=== PATIENT | female | born 1930 ===

== ENCOUNTER → 2016-09-09 | Outpatient (CLI) | payer OTHER ==
[2016-09-09 12:06] LABS: HEMATOCRIT 36.6 % (37-47); MEAN CORPUSCULAR HEMOGLOBIN 33.9 pg (25-34); MEAN CORPUSCULAR HGB CONC 33.9 g/dl (32-36); MEAN PLATELET VOLUME 10.7 fL (7.4-10.4); PLATELET COUNT 244 K/uL (130-400); RED BLOOD COUNT 3.66 M/uL (4.2-5.4); WHITE BLOOD COUNT 4.35 K/uL (4.8-10.8)
[2016-09-09 12:23] LABS: BLOOD UREA NITROGEN 21 mg/dl (7-18); BUN/CREATININE RATIO 21.3 (10-20); CALCIUM 9.1 mg/dl (8.5-10.1); CARBON DIOXIDE 33 mmol/L (21-32); CHLORIDE 102 mmol/L (98-107); GLUCOSE 94 mg/dl (70-99); POTASSIUM 4.3 mmol/L (3.5-5.1); SODIUM 141 mmol/L (136-145)
== END | disposition home or self-care (01) ==
LOC: C.LABWYN 12:26
PROVIDERS: ATTEND Internal Medicine
DX: I50.9 Heart failure, unspecified (principal); E03.9 Hypothyroidism, unspecified

== ENCOUNTER → 2016-12-16 | Outpatient (CLI) | payer OTHER | END | disposition home or self-care (01) | LOC: C.LABWYN 12:34 | PROVIDERS: ATTEND Internal Medicine | DX: E03.9 Hypothyroidism, unspecified (principal) ==

== ENCOUNTER → 2017-03-15 | Outpatient (CLI) | payer OTHER ==
[2017-03-15 12:16] LABS: HEMATOCRIT 35.5 % (37-47); MEAN CELL VOLUME 100.9 fL (80-100); MEAN CORPUSCULAR HEMOGLOBIN 33.8 pg (25-34); MEAN CORPUSCULAR HGB CONC 33.5 g/dl (32-36); MEAN PLATELET VOLUME 10.5 fL (7.4-10.4); PLATELET COUNT 217 K/uL (130-400); RED BLOOD COUNT 3.52 M/uL (4.2-5.4); WHITE BLOOD COUNT 3.89 K/uL (4.8-10.8)
[2017-03-15 12:44] LABS: BLOOD UREA NITROGEN 28 mg/dl (7-18); CALCIUM 8.9 mg/dl (8.5-10.1); CARBON DIOXIDE 32 mmol/L (21-32); CHLORIDE 104 mmol/L (98-107); GLUCOSE 85 mg/dl (70-99); POTASSIUM 4.4 mmol/L (3.5-5.1); SODIUM 143 mmol/L (136-145)
== END | disposition home or self-care (01) ==
LOC: C.LABWYN 15:02
PROVIDERS: ATTEND Nurse Practitioner Adult Health
DX: E03.9 Hypothyroidism, unspecified (principal); I10 Essential (primary) hypertension

== ENCOUNTER → 2017-05-24 | Outpatient (CLI) | payer OTHER | END | disposition home or self-care (01) | LOC: C.LABWYN 12:37 | PROVIDERS: ATTEND Internal Medicine | DX: Z51.81 Encounter for therapeutic drug level monitoring (principal); Z79.899 Other long term (current) drug therapy ==

== ENCOUNTER 2017-06-02 08:53 | Inpatient (IN) | payer OTHER ==
[~2017-06-02] VITALS: Ht 170.2 cm; Wt 56.5 kg
[2017-06-02] MEDS ORDERED: SODIUM CHLORIDE 0.9% 1000ML 500 ML IV STA (09:09)
[2017-06-02] MEDS ORDERED: CEFTRIAXONE SOD INJ 1 GM ADDVIAL IV STA (09:09)
[2017-06-02] MEDS ORDERED: DIPHTHERIA/TETANUS/PERTUSSIS 0.5 ML SYR/VIAL IM. ONE (09:15)
--- NOTE | 2017-06-02 09:23 | EMERGENCY ROOM VISIT NOTE ---
History Report prepared by Jada: Nedra Mirza Under the Supervision of: Dr. Stewart Rojas M.D. First contact with patient: 09:01 Stated Complaint: FALL/WRIST PAIN/ALTERED MENTAL STATUS History of Present Illness The patient is an 87 year old female who presents to the Emergency Room with complaints of a sudden fall that occurred last night. Nursing staff reports that the patient arrives via ALS from the [facility]. Per nursing staff, the patient fell early last night, noting that it was unwitnessed. Nursing staff reports that the patient lost consciousness and is unsure how or why she fell. Nursing staff reports that the patient is on Eliquis and has a history of atrial fibrillation. The patient states that she was on the floor for awhile before anyone found her. She denies any head trauma. The patient reports pain to her right arm. Nursing staff states that they are unsure of the patient's baseline mental status. The patient denies any shortness of breath. She is unsure when her last tetanus shot was administered. The patient 's [id number] states that the patient had a fall just before , but they are unsure why she fell that day. Source of History: patient, family (daughter in law), nursing staff Onset: last night Position: other (global) Quality: other (fall) Timing: other (sudden) Associated Symptoms: + LOC Note: Associated Symptoms: right arm pain Review of Systems See HPI for pertinent positives & negatives. A total of 10 systems reviewed and were otherwise negative. Past Medical & Surgical Medical Problems: (1) Atrial fibrillation (2) CHF (congestive heart failure) (3) HTN (hypertension) (4) Hypothyroidism (5) Paroxysmal atrial fibrillation Family History Noncontributory secondary to age Social History Marital Status: Housing Status: senior living Occupation Status: retired Current/Historical Medications Scheduled Apixaban (Eliquis), 2.5 MG PO BID Cholecalciferol (Vitamin D3), 2,000 UNITS PO DAILY Docusate Sodium (Colace), 100 MG PO BID Furosemide (Lasix), 20 MG PO BID Levothyroxine Sodium (Levothyroxine Sodium), 75 MCG PO DAILY Metoprolol Succinate (Metoprolol Succinate ER), 50 MG PO DAILY Multiple Vitamins W/ Minerals (Therems M), 1 TAB PO DAILY Allergies Coded Allergies: No Known Allergies (Unverified , 06/02/17) Physical Exam Vital Signs Date Time Temp Pulse Resp B/P (MAP) Pulse Ox O2 Delivery O2 Flow Rate FiO2 06/02/17 13:07 36.6 93 16 114/78 94 06/02/17 13:00 94 Room Air 06/02/17 12:56 93 16 114/78 94 Room Air 06/02/17 11:21 83 18 118/69 93 Room Air 06/02/17 09:53 97 Room Air 06/02/17 09:50 82 06/02/17 09:31 97 Room Air 06/02/17 09:07 36.6 103 18 108/48 97 Room Air Physical Exam GENERAL: Patient is in no acute distress. HEENT: No acute trauma, normocephalic atraumatic, Mucous membranes are dry, no nasal congestion, no scleral icterus. NECK: No stridor, no adenopathy, no meningismus, trachea is midline. LUNGS: Clear to auscultation bilaterally, no wheeze, no rhonchi, breath sounds equal. HEART: Irregular without any murmurs, normal rate. ABDOMEN: Soft, nontender, bowel sounds positive, no hernias, no peritonitis. EXTREMITIES: Skin tears about the right posterior elbow without evidence of cellulitis, no evidence for underlying elbow fracture. Large skin tear to the right medial posterior distal forearm with surrounding erythema and warmth consistent with early cellulitis, no gross deformity to this extremity to suggest fracture. NEUROLOGIC: Awake and alert, oriented to person and place, moving all extremities, no focal motor deficits. Able to recall and explain last evenings events. SKIN: No rash, no jaundice, no diaphoresis. Medical Decision & Procedures ER Provider Diagnostic Interpretation: Radiology results as stated below per my review and radiologist interpretation: RIGHT WRIST 4 VIEWS CLINICAL HISTORY: Fall with right wrist injury. FINDINGS: 4 views of the right wrist are obtained. No prior studies are available for comparison at the time of dictation. The skeletal structures are osteopenic. No fracture is seen. Soft tissue edema is present around the wrist. There is mild degenerative narrowing at the radiocarpal articulation. Minimal arthritic change is seen along the radial carpal row and at the first carpometacarpal joint. Atherosclerotic calcification is noted in the regional arteries. IMPRESSION: 1. Soft tissue swelling with no clear radiographic evidence of acute fracture. If there is clinical concern for occult fracture consider short-term radiographic follow-up. 2. Osteopenia and mild arthritic change as above. Electronically signed by: Stewart Reyes M.D. 06/02/2017 9:56 AM Dictated Date/Time: 06/02/2017 9:[address] SCAN OF THE BRAIN WITHOUT IV CONTRAST CLINICAL HISTORY: Weakness. Change in mental status. Fall. COMPARISON STUDY: No priors. TECHNIQUE: Unenhanced axial CT scan of the brain is performed from the vertex to the skull base. A dose lowering technique was utilized adhering to the principles of ALARA. FINDINGS: Brain parenchyma: There are age-related involutional changes noting [id number] patchy subcortical and periventricular microangiopathic change. There is no hemorrhage, mass effect, or evidence of acute territorial ischemia by CT criteria. Small chronic lacunar infarcts are present within the basal ganglia and both thalami. Pedroza-white matter is preserved. No extra-axial fluid collection is seen. Ventricles, sulci, cisterns: Prominent secondary to involutional change. Intracranial vasculature: There is atherosclerotic calcification of the cavernous carotid and vertebral arteries. Calvarium: The skeletal structures are osteopenic. There is no depressed calvarial fracture. Sinuses and mastoids: There is moderate mucosal thickening within air-fluid level seen in the right maxillary antrum. Mucosal thickening is also seen within several right ethmoid sinuses and the right frontal sinus. The mastoid air cells are well pneumatized. Orbits: The bony orbits are grossly intact. IMPRESSION: 1. Senescent changes as above with no hemorrhage, mass effect, or evidence of acute territorial ischemia by CT criteria. 2. Right-sided paranasal sinus disease as above. Electronically signed by: Stewart Reyes M.D. 06/02/2017 10:50 AM Dictated Date/Time: 06/02/2017 10:47 AM RIGHT FOREARM 2 VIEWS CLINICAL HISTORY: Fall with right arm pain. FINDINGS: AP and lateral views of the right forearm are obtained. No prior studies are available for comparison at the time of dictation. The skeletal structures are osteopenic. There is no radiographic evidence of right forearm fracture. The elbow and wrist joints are grossly maintained noting arthritic change in the wrist. Soft tissue edema is present around the wrist. Atherosclerotic calcification is observed in the regional arteries. IMPRESSION: Osteopenia with no radiographic evidence of right forearm fracture. Electronically signed by: Stewart Reyes M.D. 06/02/2017 9:51 AM Dictated Date/Time: 06/02/2017 9:50 AM RIGHT ELBOW 3 VIEWS CLINICAL HISTORY: Fall with right arm injury. FINDINGS: 3 views of the right elbow are obtained. No prior studies are available for comparison at the time of dictation. The skeletal structures are osteopenic. No fracture is seen. The joint spaces appear maintained. There is no evidence of joint effusion. The overlying soft tissues are within normal limits. Atherosclerotic calcification is noted in the regional arteries. IMPRESSION: Osteopenia with no radiographic evidence of right elbow fracture. Electronically signed by: Stewart Reyes M.D. 06/02/2017 9:50 AM Dictated Date/Time: 06/02/2017 9:49 AM SINGLE VIEW CHEST CLINICAL HISTORY: Fall. Weakness. FINDINGS: An AP, portable, upright chest radiograph is obtained. No prior studies are available for comparison at the time of dictation. The examination is degraded by portable technique and patient rotation. The heart is enlarged and there is atherosclerotic calcification of the thoracic aorta. The pulmonary vasculature is noncongested. No airspace consolidation or large pleural effusion is identified. A large hiatal hernia is identified. There is an approximately 2 cm nodular density suggested in the left upper lung. This may represent bony overgrowth at the first rib ending. Apical scarring and calcification is noted. No pneumothorax is seen. The skeletal structures are osteopenic. There is evidence of a compression deformity with previous vertebroplasty in the thoracic spine. IMPRESSION: 1. Cardiomegaly with no acute cardiopulmonary abnormality. 2. Hiatal hernia. 3. A 2 cm nodular density is questioned in the left upper lung. This may represent bony overgrowth at the first rib ending. Follow-up with a dedicated PA and lateral examination is recommended for reassessment. Electronically signed by: Stewart Reyes M.D. 06/02/2017 9:53 AM Dictated Date/Time: 06/02/2017 9:51 AM CERVICAL SPINE W/O CLINICAL HISTORY: 87 years-old Female presenting with fall. TECHNIQUE: Multidetector CT of the cervical spine was performed without the use of intravenous contrast. IV contrast: None. A dose lowering technique was used consistent with the principles of ALARA (as low as reasonably achievable). COMPARISON: None. CT DOSE (mGy.cm): The estimated cumulative dose is 1015.79 mGy.cm. FINDINGS: Cushion Cover Inspector topogram: Unremarkable. Osteopenia. Exaggerated cervical lordosis. Multilevel degenerative changes, including extensive facet and uncovertebral arthropathy.. Osseous neural foraminal narrowing right greater than left at C3-4 and on the right at C4-5. No significant osseous spinal canal narrowing. Osseous fusion noted across the facet joints at C2-3. No compression deformity. No evidence of acute fracture or subluxation. Atherosclerosis noted. Limited intracranial evaluation within normal limits. Allowing for noncontrast technique, soft tissues of the neck are unremarkable. Lung apices clear. IMPRESSION: 1. No acute osseous injury of the cervical spine. 2. Multilevel degenerative changes. Electronically signed by: Mohinder Keane M.D. 06/02/2017 10:55 AM Dictated Date/Time: 06/02/2017 10:49 AM Laboratory Results 06/02/17 10:00 Red Blood Count 3.76, Mean Corpuscular Volume 99.5, Mean Corpuscular Hemoglobin 34.8, Mean Corpuscular Hemoglobin Concent 35.0, Mean Platelet Volume 9.4, Neutrophils (%) (Auto) 75.9, Lymphocytes (%) (Auto) 11.2, Monocytes (%) (Auto) 10.8, Eosinophils (%) (Auto) 1.5, Basophils (%) (Auto) 0.3, Neutrophils # (Auto ) 5.70, Lymphocytes # (Auto) 0.84, Monocytes # (Auto) 0.81, Eosinophils # (Auto ) 0.11, Basophils # (Auto) 0.02 06/02/17 10:00 Test 06/02/17 10:00 06/02/17 10:20 White Blood Count 7.50 K/uL (4.8-10.8) Red Blood Count 3.76 M/uL (4.2-5.4) Hemoglobin 13.1 g/dL (12.0-16.0) Hematocrit 37.4 % (37-47) Mean Corpuscular Volume 99.5 fL (80-100) Mean Corpuscular Hemoglobin 34.8 pg (25-34) Mean Corpuscular Hemoglobin Concent 35.0 g/dl (32-36) Platelet Count 306 K/uL (130-400) Mean Platelet Volume 9.4 fL (7.4-10.4) Neutrophils (%) (Auto) 75.9 % Lymphocytes (%) (Auto) 11.2 % Monocytes (%) (Auto) 10.8 % Eosinophils (%) (Auto) 1.5 % Basophils (%) (Auto) 0.3 % Neutrophils # (Auto) 5.70 K/uL (1.4-6.5) Lymphocytes # (Auto) 0.84 K/uL (1.2-3.4) Monocytes # (Auto) 0.81 K/uL (0.11-0.59) Eosinophils # (Auto) 0.11 K/uL (0-0.5) Basophils # (Auto) 0.02 K/uL (0-0.2) RDW Standard Deviation 56.3 fL (36.4-46.3) RDW Coefficient of Variation 15.4 % (11.5-14.5) Immature Granulocyte % (Auto) 0.3 % Immature Granulocyte # (Auto) 0.02 K/uL (0.00-0.02) Prothrombin Time 11.2 SECONDS (9.0-12.0) Prothromb Time International Ratio 1.1 (0.9-1.1) Activated Partial Thromboplast Time 31.4 SECONDS (21.0-31.0) Partial Thromboplastin Ratio 1.2 Anion Gap 3.0 mmol/L (3-11) Est Creatinine Clear Calc Drug Dose 30.6 ml/min Estimated GFR () 53.7 Estimated GFR (Non- 46.3 BUN/Creatinine Ratio 17.5 (10-20) Calcium Level 8.6 mg/dl (8.5-10.1) Magnesium Level 2.4 mg/dl (1.8-2.4) Total Bilirubin 0.7 mg/dl (0.2-1) Aspartate Amino Transf (AST/SGOT) 25 U/L (15-37) Alanine Aminotransferase (ALT/SGPT) 30 U/L (12-78) Alkaline Phosphatase 120 U/L (45-117) Total Creatine Kinase 126 U/L (26-192) Troponin I 0.018 ng/ml (0-0.045) Total Protein 7.0 gm/dl (6.4-8.2) Albumin 3.2 gm/dl (3.4-5.0) Globulin 3.8 gm/dl (2.5-4.0) Albumin/Globulin Ratio 0.8 (0.9-2) Thyroid Stimulating Hormone (TSH) 1.230 uIu/ml (0.300-4.500) Urine Color YELLOW Urine Appearance CLEAR (CLEAR) Urine pH 7.0 (4.5-7.5) Urine Specific [place] 1.018 (1.000-1.030) Urine Protein NEG (NEG) Urine Glucose (UA) NEG (NEG) Urine Ketones NEG (NEG) Urine Occult Blood TRACE (NEG) Urine Nitrite POS (NEG) Urine Bilirubin NEG (NEG) Urine Urobilinogen NEG (NEG) Urine Leukocyte Esterase MODERATE (NEG) Urine WBC (Auto) >30 /hpf (0-5) Urine RBC (Auto) 0-4 /hpf (0-4) Urine Hyaline Casts (Auto) 10-30 /lpf (0-5) Urine Epithelial Cells (Auto) 0-5 /lpf (0-5) Urine Bacteria (Auto) 3+ (NEG) Laboratory results reviewed by me. Medications Administered Medications (Trade) Dose Ordered Sig/Cherelle Route Start Time Stop Time Status Last Admin Dose Admin Sodium Chloride 500 ml @ 999 mls/hr Q31M STAT IV 06/02/17 09:09 06/02/17 09:39 DC 06/02/17 09:09 999 MLS/HR Diphtheria/ Pertussis/Tetanus Vacc (Adacel Inj) 0.5 ml ONCE ONCE IM. 06/02/17 09:15 06/02/17 09:16 DC 06/02/17 11:16 0.5 ML Ceftriaxone Sodium (Rocephin Inj) 1 gm NOW STAT IV 06/02/17 09:09 06/02/17 09:14 DC 06/02/17 11:14 1 GM Vancomycin HCl 1250 mg/Sodium Chloride 275 ml @ 125 mls/hr NOW STAT IV 06/02/17 13:15 06/02/17 15:26 06/02/17 13:41 125 MLS/HR ECG Indication: weakness Rate (beats per minute): 90 Rhythm: atrial fibrillation Findings: no acute ischemic change, no ectopy ED Course 0904: The patient was evaluated in room B6. A complete history and physical exam was performed. 0909: Ordered Rocephin Inj 1 gm IV, Sodium Chloride 500 ml @ 999 mls/hr IV. 0915: Ordered Adacel Inj 0.5 ml IM. 1103: I reevaluated the patient and she is resting comfortably. I discussed the test results with the patient and her family and I discussed the treatment plan with them. They verbalized complete understanding and agreement. The patient will be evaluated for further treatment. 1127: I discussed the patients case with Yamileth Zuniga PA-C. She is going to evaluate the patient for further treatment. Medical Decision The patient is an 87 year old female who presents to the ED with complaints of a fall. Differential diagnoses considered include Cellulitis, right elbow forearm or wrist fracture, intracranial bleeding or c-spine fracture, infection , dehydration, anemia, electrolyte imbalance, dysrhythmia, MS. There is no leukocytosis or concerning anemia. No significant electrolyte abnormality, kidney failure or hepatitis. Chest x-ray does not show pneumonia or CHF. Brain CT shows no acute bleed or mass effect. C-spine CT shows no acute fracture. Right forearm, right wrist and right elbow films were performed , no fracture seen. Urinalysis does suggest infection. The patient appears to be in a euthyroid state. Urine culture and blood cultures are pending. EKG shows A. fib, no acute ischemia. Cardiac enzyme testing 1 does not suggest acute cardiac injury. The patient was given an Adacel booster IM. She received IV saline and IV ceftriaxone. The patient presents with falls and some confusion. She appears to be developing a right arm cellulitis from one of her skin tears. She has a UTI by workup. She seems dehydrated clinically. I suspect the urinary infection and dehydration caused the fall. The change in mental status also may be from the UTI. With all her findings and the possible developing right arm cellulitis, I did think a hospital stay was warranted. I spoke to the patient and case management. I talked with the patient's family. The on-call hospitalist was consulted. The patient's skin tears were cleansed and dressed, suturing was not felt to be indicated--the wounds were fairly old for suturing. Medication Reconcilliation Current Medication List: was personally reviewed by me Blood Pressure Screening Patient's blood pressure: Normal blood pressure Blood pressure disposition: Did not require urgent referral Consults Time Called: 1110 Consulting Physician: Yamileth Zuniga PA-C Returned Call: 1127 I discussed the patients case with Yamileth Zuniga PA-C. She is going to evaluate the patient for further treatment. Impression Primary Impression: Change in mental status Additional Impressions: Weakness Skin tear of right upper extremity Right arm cellulitis UTI (urinary tract infection) Scribe Attestation The scribe's documentation has been prepared under my direction and personally reviewed by me in its entirety. I confirm that the note above accurately reflects all work, treatment, procedures, and medical decision making performed by me. Departure Information Dispostion Being Evaluated By Hospitalist Referrals ÁLVARO CASTILLO (PCP) Problem Qualifiers
--- NOTE | 2017-06-02 09:51 | DIAGNOSTIC IMAGING REPORT ---
RIGHT ELBOW 3 VIEWS CLINICAL HISTORY: Fall with right arm injury. FINDINGS: 3 views of the right elbow are obtained. No prior studies are available for comparison at the time of dictation. The skeletal structures are osteopenic. No fracture is seen. The joint spaces appear maintained. There is no evidence of joint effusion. The overlying soft tissues are within normal limits. Atherosclerotic calcification is noted in the regional arteries. IMPRESSION: Osteopenia with no radiographic evidence of right elbow fracture. Electronically signed by: Stewart Reyes M.D. 06/02/2017 9:50 AM Dictated Date/Time: 06/02/2017 9:49 AM
--- NOTE | 2017-06-02 09:52 | DIAGNOSTIC IMAGING REPORT ---
RIGHT FOREARM 2 VIEWS CLINICAL HISTORY: Fall with right arm pain. FINDINGS: AP and lateral views of the right forearm are obtained. No prior studies are available for comparison at the time of dictation. The skeletal structures are osteopenic. There is no radiographic evidence of right forearm fracture. The elbow and wrist joints are grossly maintained noting arthritic change in the wrist. Soft tissue edema is present around the wrist. Atherosclerotic calcification is observed in the regional arteries. IMPRESSION: Osteopenia with no radiographic evidence of right forearm fracture. Electronically signed by: Stewart Reyes M.D. 06/02/2017 9:51 AM Dictated Date/Time: 06/02/2017 9:50 AM
--- NOTE | 2017-06-02 09:54 | DIAGNOSTIC IMAGING REPORT ---
SINGLE VIEW CHEST CLINICAL HISTORY: Fall. Weakness. FINDINGS: An AP, portable, upright chest radiograph is obtained. No prior studies are available for comparison at the time of dictation. The examination is degraded by portable technique and patient rotation. The heart is enlarged and there is atherosclerotic calcification of the thoracic aorta. The pulmonary vasculature is noncongested. No airspace consolidation or large pleural effusion is identified. A large hiatal hernia is identified. There is an approximately 2 cm nodular density suggested in the left upper lung. This may represent bony overgrowth at the first rib ending. Apical scarring and calcification is noted. No pneumothorax is seen. The skeletal structures are osteopenic. There is evidence of a compression deformity with previous vertebroplasty in the thoracic spine. IMPRESSION: 1. Cardiomegaly with no acute cardiopulmonary abnormality. 2. Hiatal hernia. 3. A 2 cm nodular density is questioned in the left upper lung. This may represent bony overgrowth at the first rib ending. Follow-up with a dedicated PA and lateral examination is recommended for reassessment. Electronically signed by: Stewart Reyes M.D. 06/02/2017 9:53 AM Dictated Date/Time: 06/02/2017 9:51 AM
--- NOTE | 2017-06-02 09:57 | DIAGNOSTIC IMAGING REPORT ---
RIGHT WRIST 4 VIEWS CLINICAL HISTORY: Fall with right wrist injury. FINDINGS: 4 views of the right wrist are obtained. No prior studies are available for comparison at the time of dictation. The skeletal structures are osteopenic. No fracture is seen. Soft tissue edema is present around the wrist. There is mild degenerative narrowing at the radiocarpal articulation. Minimal arthritic change is seen along the radial carpal row and at the first carpometacarpal joint. Atherosclerotic calcification is noted in the regional arteries. IMPRESSION: 1. Soft tissue swelling with no clear radiographic evidence of acute fracture. If there is clinical concern for occult fracture consider short-term radiographic follow-up. 2. Osteopenia and mild arthritic change as above. Electronically signed by: Stewart Reyes M.D. 06/02/2017 9:56 AM Dictated Date/Time: 06/02/2017 9:54 AM
[2017-06-02 10:30] LABS: BASO % 0.3 %; BASO ABS # 0.02 K/uL (0-0.2); COMPLETE YES; EOS % 1.5 %; HEMATOCRIT 37.4 % (37-47); IG% 0.3 %; LYMPH % 11.2 %; LYMPH ABS # 0.84 K/uL (1.2-3.4); MEAN CELL VOLUME 99.5 fL (80-100); MEAN CORPUSCULAR HEMOGLOBIN 34.8 pg (25-34); MEAN PLATELET VOLUME 9.4 fL (7.4-10.4); MONO % 10.8 %; NEUT % 75.9 %; PLATELET COUNT 306 K/uL (130-400); RED BLOOD COUNT 3.76 M/uL (4.2-5.4)
[2017-06-02] MEDS ORDERED: FURO-85 PO (10:34)
[2017-06-02] MEDS ORDERED: TPRSR/50 PO (10:34)
[2017-06-02] MEDS ORDERED: ELQ25 PO (10:34)
[2017-06-02] MEDS ORDERED: DOCU-94 PO (10:34)
[2017-06-02] MEDS ORDERED: CHOL2000 PO (10:34)
[2017-06-02] MEDS ORDERED: LEVO75TA5 PO (10:34)
[2017-06-02] MEDS ORDERED: MULTTAB63 PO (10:34)
[2017-06-02 10:39] LABS: INR 1.1 (0.9-1.1); PARTIAL THROMBOPLASTIN RATIO 1.2; PROTHROMBIN TIME (PATIENT) 11.2 SECONDS (9.0-12.0)
[2017-06-02 10:48] LABS: BUN/CREATININE RATIO 17.5 (10-20); CALCIUM 8.6 mg/dl (8.5-10.1); CREATININE 1.07 mg/dl (0.60-1.20); MAGNESIUM 2.4 mg/dl (1.8-2.4); POTASSIUM 3.7 mmol/L (3.5-5.1)
[2017-06-02 10:49] LABS: MANUAL MICROSCOPIC REQUIRED? NO; REVIEW REQ? NO; URINE APPEARANCE CLEAR (CLEAR); URINE BILIRUBIN NEG (NEG); URINE COLOR YELLOW; URINE EPITHELIAL CELL AUTO 0-5 /lpf (0-5); URINE NITRITE POS (NEG); URINE SPECIFIC GRAVITY 1.018 (1.000-1.030); UROBILINOGEN NEG (NEG); ZZURINE CULT IF INDIC CATH YES
--- NOTE | 2017-06-02 10:51 | DIAGNOSTIC IMAGING REPORT ---
CT SCAN OF THE BRAIN WITHOUT IV CONTRAST CLINICAL HISTORY: Weakness. Change in mental status. Fall. COMPARISON STUDY: No priors. TECHNIQUE: Unenhanced axial CT scan of the brain is performed from the vertex to the skull base. A dose lowering technique was utilized adhering to the principles of ALARA. FINDINGS: Brain parenchyma: There are age-related involutional changes noting [id number]-[id number] patchy subcortical and periventricular microangiopathic change. There is no hemorrhage, mass effect, or evidence of acute territorial ischemia by CT criteria. Small chronic lacunar infarcts are present within the basal ganglia and both thalami. Pedroza-white matter is preserved. No extra-axial fluid collection is seen. Ventricles, sulci, cisterns: Prominent secondary to involutional change. Intracranial vasculature: There is atherosclerotic calcification of the cavernous carotid and vertebral arteries. Calvarium: The skeletal structures are osteopenic. There is no depressed calvarial fracture. Sinuses and mastoids: There is moderate mucosal thickening within air-fluid level seen in the right maxillary antrum. Mucosal thickening is also seen within several right ethmoid sinuses and the right frontal sinus. The mastoid air cells are well pneumatized. Orbits: The bony orbits are grossly intact. IMPRESSION: 1. Senescent changes as above with no hemorrhage, mass effect, or evidence of acute territorial ischemia by CT criteria. 2. Right-sided paranasal sinus disease as above. Electronically signed by: Stewart Reyes M.D. 06/02/2017 10:50 AM Dictated Date/Time: 06/02/2017 10:47 AM
--- NOTE | 2017-06-02 10:57 | DIAGNOSTIC IMAGING REPORT ---
CERVICAL SPINE W/O CLINICAL HISTORY: 87 years-old Female presenting with fall. TECHNIQUE: Multidetector CT of the cervical spine was performed without the use of intravenous contrast. IV contrast: None. A dose lowering technique was used consistent with the principles of ALARA (as low as reasonably achievable). COMPARISON: None. CT DOSE (mGy.cm): The estimated cumulative dose is 1015.79 mGy.cm. FINDINGS: Tribal Judge topogram: Unremarkable. Osteopenia. Exaggerated cervical lordosis. Multilevel degenerative changes, including extensive facet and uncovertebral arthropathy.. Osseous neural foraminal narrowing right greater than left at C3-4 and on the right at C4-5. No significant osseous spinal canal narrowing. Osseous fusion noted across the facet joints at C2-3. No compression deformity. No evidence of acute fracture or subluxation. Atherosclerosis noted. Limited intracranial evaluation within normal limits. Allowing for noncontrast technique, soft tissues of the neck are unremarkable. Lung apices clear. IMPRESSION: 1. No acute osseous injury of the cervical spine. 2. Multilevel degenerative changes. Electronically signed by: Mohinder Keane M.D. 06/02/2017 10:55 AM Dictated Date/Time: 06/02/2017 10:49 AM
[2017-06-02 10:59] LABS: ALB/GLOB RATIO 0.8 (0.9-2); THYROID STIMULATING HORMONE 1.23 uIu/ml (0.300-4.500)
[2017-06-02] MEDS ORDERED: ACETAMINOPHEN 325 MG TAB PO PRN (12:15)
[2017-06-02] MEDS ORDERED: VANCOMYCIN CONSULT ACTIVE PRN (12:51)
[2017-06-02 13:00] VITALS: O2SAT 94; Ht 170.2 cm; Wt 56.5 kg
[2017-06-02] MEDS ORDERED: SODIUM CHLORIDE 0.9% 1000ML 1,000 ML IV SCH (13:00)
--- NOTE | 2017-06-02 13:07 | History and Physical ---
History & Physical Date & Time of Service: Jun 02, 2017 at 12:54 Chief Complaint: Fall/Wrist Pain/Altered Mental Status Primary Care Physician: Catie Acosta History of Present Illness Source: patient This is an 87yo F with a PMH of paroxysmal A Fib, HTN, CHF, hypothyroidism and osteoporosis who presents with generalized weakness and confusion x 2 days. Patient lives in assisted living at [facility] in [place].Endorses feeling more tired that usual this week but otherwise in normal state of health until yesterday morning, when patient fell. She was sitting in a chair for a while and then stood up to get something. The next thing she remembers is lying on the floor next to her walker. Was unable to stand up but crawled over to her door and got the attention of a [facility] employee. Denies any lightheadedness, chest pain or SOB proceeding the fall. Does not know how she landed but noticed R arm pain with some abrasions on her forearm. Denies hitting head. Unsure if LOC. Per [id number], patient spent the rest of yesterday resting in her room. Had her food delivered to her and she did not eat. This morning, was found to be slightly confused (baseline mentation is A&Ox3) with generalized weakness, so was brought to the ER for further evaluation. Currently, patient endorses fatigue and decreased appetite. Denies confusion, lightheadedness, near-syncope, fever, chills, CP, SOB, abd pain, nausea, vomiting or focal neurological deficits. Denies urinary symptoms and says she has been having regular bowel movements. Has a history of A Fib and is on eliquis. Per family, this is patient's second unwitnessed fall in the past 2 months. Ambulates with a walker. Also noted to have a bruise on R cheek develop today. [id number] states it was not present yesterday and believes patient obtained bruise during transportation to hospital. Past Medical/Surgical History Medical Problems: (1) Atrial fibrillation Status: Chronic (2) CHF (congestive heart failure) Status: Chronic (3) HTN (hypertension) Status: Chronic (4) Hypothyroidism Status: Chronic (5) Paroxysmal atrial fibrillation Status: Chronic Family History Family history is non-contributory based on patient's age. Social History Smoking Status: Never Smoker Alcohol Use: none Marital Status: Housing status: assisted living Occupational Status: retired Allergies Coded Allergies: No Known Allergies (Unverified , 06/02/17) Home Medications Scheduled Apixaban (Eliquis), 2.5 MG PO BID Cholecalciferol (Vitamin D3), 2,000 UNITS PO DAILY Docusate Sodium (Colace), 100 MG PO BID Furosemide (Lasix), 20 MG PO BID Levothyroxine Sodium (Levothyroxine Sodium), 75 MCG PO DAILY Metoprolol Succinate (Metoprolol Succinate ER), 50 MG PO DAILY Multiple Vitamins W/ Minerals (Therems M), 1 TAB PO DAILY Review of Systems Ten systems reviewed and negative except as noted in the HPI. Physical Exam Vital Signs Date Time Temp Pulse Resp B/P (MAP) Pulse Ox O2 Delivery O2 Flow Rate FiO2 06/02/17 11:21 83 18 118/69 93 Room Air 06/02/17 09:53 97 Room Air 06/02/17 09:50 82 06/02/17 09:31 97 Room Air 06/02/17 09:07 36.6 103 18 108/48 97 Room Air General Appearance: no apparent distress, + cachetic Head: normocephalic, atraumatic Eyes: normal inspection, PERRL, sclerae normal ENT: normal ENT inspection, hearing grossly normal, pharynx normal (dry mucous membranes ) Neck: supple, thyroid normal, trachea midline Respiratory/Chest: chest non-tender, normal breath sounds, no respiratory distress, no accessory muscle use, + rhonchi (in upper lung dagile bilaterally ) Cardiovascular: no murmur, normal peripheral pulses, + irregularly irregular Abdomen/GI: non tender, soft, no organomegaly Back: normal inspection Extremities/Musculoskelatal: normal inspection, no calf tenderness, no pedal edema Neurologic/Psych: no motor/sensory deficits, alert (oriented to person and place, not to time or situation), normal mood/affect, oriented x 3 Skin: normal color, + pertinent finding (Presence of 2 skin tears on R forearm with surrounding erythema. Healing wound on L ankle. Purple ecchymosis on R cheek. Non-tender.) Lymphatic: no adenopathy Diagnostics Laboratory Results Results Past 24 Hours Test 06/02/17 10:00 06/02/17 10:20 Range/Units White Blood Count 7.50 4.8-10.8 K/uL Red Blood Count 3.76 4.2-5.4 M/uL Hemoglobin 13.1 12.0-16.0 g/dL Hematocrit 37.4 37-47 % Mean Corpuscular Volume 99.5 80-100 fL Mean Corpuscular Hemoglobin 34.8 25-34 pg Mean Corpuscular Hemoglobin Concent 35.0 32-36 g/dl Platelet Count 306 130-400 K/uL Mean Platelet Volume 9.4 7.4-10.4 fL Neutrophils (%) (Auto) 75.9 % Lymphocytes (%) (Auto) 11.2 % Monocytes (%) (Auto) 10.8 % Eosinophils (%) (Auto) 1.5 % Basophils (%) (Auto) 0.3 % Neutrophils # (Auto) 5.70 1.4-6.5 K/uL Lymphocytes # (Auto) 0.84 1.2-3.4 K/uL Monocytes # (Auto) 0.81 0.11-0.59 K/uL Eosinophils # (Auto) 0.11 0-0.5 K/uL Basophils # (Auto) 0.02 0-0.2 K/uL RDW Standard Deviation 56.3 36.4-46.3 fL RDW Coefficient of Variation 15.4 11.5-14.5 % Immature Granulocyte % (Auto) 0.3 % Immature Granulocyte # (Auto) 0.02 0.00-0.02 K/uL Prothrombin Time 11.2 9.0-12.0 SECONDS Prothromb Time International Ratio 1.1 0.9-1.1 Activated Partial Thromboplast Time 31.4 21.0-31.0 SECONDS Partial Thromboplastin Ratio 1.2 Sodium Level 136 136-145 mmol/L Potassium Level 3.7 3.5-5.1 mmol/L Chloride Level 99 98-107 mmol/L Carbon Dioxide Level 34 21-32 mmol/L Anion Gap 3.0 3-11 mmol/L Blood Urea Nitrogen 19 7-18 mg/dl Creatinine 1.07 0.60-1.20 mg/dl Est Creatinine Clear Calc Drug Dose 30.6 ml/min Estimated GFR () 53.7 Estimated GFR (Non- 46.3 BUN/Creatinine Ratio 17.5 10-20 Random Glucose 134 70-99 mg/dl Calcium Level 8.6 8.5-10.1 mg/dl Magnesium Level 2.4 1.8-2.4 mg/dl Total Bilirubin 0.7 0.2-1 mg/dl Aspartate Amino Transf (AST/SGOT) 25 15-37 U/L Alanine Aminotransferase (ALT/SGPT) 30 12-78 U/L Alkaline Phosphatase 120 45-117 U/L Total Creatine Kinase 126 26-192 U/L Troponin I 0.018 0-0.045 ng/ml Total Protein 7.0 6.4-8.2 gm/dl Albumin 3.2 3.4-5.0 gm/dl Globulin 3.8 2.5-4.0 gm/dl Albumin/Globulin Ratio 0.8 0.9-2 Thyroid Stimulating Hormone (TSH) 1.230 0.300-4.500 uIu/ml Urine Color YELLOW Urine Appearance CLEAR CLEAR Urine pH 7.0 4.5-7.5 Urine Specific Lackey 1.018 1.000-1.030 Urine Protein NEG NEG Urine Glucose (UA) NEG NEG Urine Ketones NEG NEG Urine Occult Blood TRACE NEG Urine Nitrite POS NEG Urine Bilirubin NEG NEG Urine Urobilinogen NEG NEG Urine Leukocyte Esterase MODERATE NEG Urine WBC (Auto) >30 0-5 /hpf Urine RBC (Auto) 0-4 0-4 /hpf Urine Hyaline Casts (Auto) 10-30 0-5 /lpf Urine Epithelial Cells (Auto) 0-5 0-5 /lpf Urine Bacteria (Auto) 3+ NEG Microbiology Results 06/02/17 Blood Culture, Received Pending 06/02/17 Blood Culture, Received Pending 06/02/17 Urine Culture, Received Pending Diagnostic Radiology CT head: IMPRESSION: 1. Senescent changes as above with no hemorrhage, mass effect, or evidence of acute territorial ischemia by CT criteria. 2. Right-sided paranasal sinus disease as above. CXR: IMPRESSION: 1. Cardiomegaly with no acute cardiopulmonary abnormality. 2. Hiatal hernia. 3. A 2 cm nodular density is questioned in the left upper lung. This may represent bony overgrowth at the first rib ending. Follow-up with a dedicated PA and lateral examination is recommended for reassessment. Cervical spine CT: IMPRESSION: 1. No acute osseous injury of the cervical spine. 2. Multilevel degenerative changes. R Elbow XR: R Forearm XR: R Wrist XR: EKG Atrial fibrillation at 90 bpm. Left bundle branch block Impression Assessment and Plan This is an 87yo F with a PMH of paroxysmal A Fib, HTN, CHF, hypothyroidism and osteoporosis who presents with generalized weakness and confusion x 2 days. Unwitnessed fall, possible syncopal episode: - Likely vasovagal or orthostatic since episode occurred with positional change - Also has h/o A fib, which was shown on initial EKG, so must consider cardiovascular cause - Potentially a mechanical fall without LOC 2/2 weakness/fatigue from urinary infection - Had a mechanical fall last month as well - No leukocytosis, electrolyte abnormalities. TSH wnl - CT head without acute findings - Echo pending, repeat head CT in AM, Vit B12 pending - Orthostatic vitals, gentle IVF resuscitation - PT/OT eval & conditioning UTI, uncomplicated: - UA with nitrites, leuk esterase, urine bacteria - Urine culture pending - Rocephin - Gentle IVF Metabolic encephalopathy: - 2/2 UTI - Expect improvement with antibiotics, IVFs - CT head negative. Will repeat tomorrow R forearm cellulitis: - 2/2 skin tears obtained from fall - Wound care consult - Vanc initiated for empiric coverage R arm pain: improved - Initially complained of R arm pain on admission - Now denies pain - R wrist XR with soft tissue swelling, no fracture - R forearm and elbow XR without fracture - Tylenol PRN A fib: - Initial EKG shows A fib at a rate of ~90 bpm - Denies any lightheadedness, SOB, CP, palpitations - On metoprolol, eliquis - Hold eliquis overnight -Due to multiple falls recently, need to consider risk/benefit of restarting anticoagulation - Monitor rhythm on telemetry HTN: -Normotensive -Cont metoprolol -Lasix held Osteoporosis: -Cont home dose Vit D Hypothyroidism: -TSH wnl -Continue synthroid CHF: -Listed as a PMH on paperwork from [facility] -No record of a previous echo -Echo pending -Held lasix due to patient dry on exam DVT Ppx: SCDs. Eliquis held overnight 2/2 falls. Code status: DNR per discussion with family, living will PCP: Andrea Dispo: Discharge planning to return to [facility] once medically appropriate. Patient seen in collaboration with Dr. Mcclendon. Please see addendum. ADDENDUM: This is an 87 year old female with a PMH of paroxysmal A. Fib on Eliquis, hypothyroid, HTN presents with a fall. Patient cannot recall what happened; she is coming from [facility]. As per family, she fell and hit her R forearm and R cheek. Forearm cut open and redness surrounding this area. There is bruising at the R cheek. Denies chest pain/shortness of breath. She has some psychomotor slowing - as per family, she seems more confused than usual. +thin, +cachectic +irregularly irregular +psychomotor weakness R arm bandaged R cheek bruising Plan: Syncopal episode: PT/OT, discharge planning eval, check an echo, initial Head CT negative, recheck Head CT in AM to r/o hemorrhage, hold Eliquis - due to multiple falls, may be high risk to restart anticoagulation. Gentle hydration. Orthostatics. monitor in tele. UTI, possible metabolic encephalopathy: start Rocephin. urine culture pending. R arm cellulitis: Vancomycin. wound care Malnutrition; low BMI; boost, hr systems analyst consult Level of Care Telemetry Resuscitation Status DO NOT RESUSCITATE VTE Prophylaxis VTE Risk Assessment Done? Y/N: Yes Risk Level: Moderate Given or contraindicated: Other Anticoagulation Social Service Consult Lives in Snf
[2017-06-02] MEDS ORDERED: VANCOMYCIN INJ 1,250 MG in SODIUM CHLORIDE 0.9% 250ML 250 ML IV STA (13:15)
[2017-06-02] MEDS ORDERED: PNEUMOCOCCAL POLYSACCHARIDES 25 MCG/0.5 ML VIAL/SYR IM. ONE (13:30)
[2017-06-02] MEDS ORDERED: PNEUMOCOCCAL ADMINISTRATION CHARGE ONE (13:30)
[2017-06-02 14:03] VITALS: BP 149/65; PULSE 99; TEMP 36.5; O2SAT 96
--- NOTE | 2017-06-02 14:53 | Pharmacy Progress Note ---
Pharmacy Abx Initial Consult Date of Service Jun 02, 2017. Pharmacy Dosing Scope Date of Consult: 06/02/17 Consultation requested by: Charmaine Torres Pharmacy is consulted to initiate Vanco IV/PO dosing therapy, order appropriate labs and adjust drug dose/frequency. Subjective The patient is a 87 year old female admitted on Jun 02, 2017 at 12:12. Objective Height (Feet): 5 Height (Inches): 7.00 Weight (Kilograms): 53.300 Vital Signs (Past 12Hrs) Vital Signs Past 12 Hours Date Time Temp Pulse Resp B/P (MAP) Pulse Ox O2 Delivery O2 Flow Rate FiO2 06/02/17 14:03 36.5 99 20 149/65 (93) 96 Room Air 06/02/17 13:07 36.6 93 16 114/78 94 06/02/17 13:00 94 Room Air 06/02/17 12:56 93 16 114/78 94 Room Air 06/02/17 11:21 83 18 118/69 93 Room Air 06/02/17 09:53 97 Room Air 06/02/17 09:50 82 06/02/17 09:31 97 Room Air 06/02/17 09:07 36.6 103 18 108/48 97 Room Air Lab Results (24Hrs) Laboratory Tests (24 Hours) Test 06/02/17 10:00 White Blood Count 7.50 K/uL (4.8-10.8) Red Blood Count 3.76 M/uL (4.2-5.4) L Hemoglobin 13.1 g/dL (12.0-16.0) Hematocrit 37.4 % (37-47) Mean Corpuscular Volume 99.5 fL (80-100) Mean Corpuscular Hemoglobin 34.8 pg (25-34) H Mean Corpuscular Hemoglobin Concent 35.0 g/dl (32-36) Platelet Count 306 K/uL (130-400) Mean Platelet Volume 9.4 fL (7.4-10.4) Neutrophils (%) (Auto) 75.9 % Lymphocytes (%) (Auto) 11.2 % Monocytes (%) (Auto) 10.8 % Eosinophils (%) (Auto) 1.5 % Basophils (%) (Auto) 0.3 % Neutrophils # (Auto) 5.70 K/uL (1.4-6.5) Lymphocytes # (Auto) 0.84 K/uL (1.2-3.4) L Monocytes # (Auto) 0.81 K/uL (0.11-0.59) H Eosinophils # (Auto) 0.11 K/uL (0-0.5) Basophils # (Auto) 0.02 K/uL (0-0.2) Total Creatine Kinase 126 U/L (26-192) Micro Results Date/Time Source Procedure Growth Status 06/02/17 10:10 Blood Blood Culture Pending Received 06/02/17 10:00 Blood Blood Culture Pending Received 06/02/17 10:20 Urine,Catheterized Urine Culture Pending Received Risk Factors for Resistance none Assessment & Plan Pt is an 87yo F being admitted for syncopal episode w/ concurrent R forearm cellulitis. BC x2 and UC are both pending. Pt's renal fxn looks to be at baseline. At this juncture pt population p'kinetics: T1/2=23hrs, ke=0.0301, Vd= 0.7. Pt doesnt have a h/o MDRO. qSOFA score: 0. Sys>100mmHg, RR WNL, AMS resolved. Afebrile, nil leukocytosis. Vanco: * Vanco 1250mg (23.5mg/kg) x1 @ 1330 to achieve a peak of ~34mcg/mL * Then Vanco 750mg (14mg/kg) set to start @ 0800 on 06/03/17 * Goal trough until c/s's result: 15-20mcg/mL * Trough ordered for 06/05/17, prior to the third maintenance dose. Pharmacy will continue to follow and will adjust dose/frequency as necessary. Thank you.
[2017-06-02 16:00] VITALS: BP 125/72; PULSE 106; TEMP 36.9; O2SAT 95
[2017-06-02] MEDS: BOOST VANILLA PO SCH ×2 (16:45)
[2017-06-02 19:32] VITALS: BP 124/75; PULSE 89; TEMP 37.3; O2SAT 94
[2017-06-02] MEDS: DOCUSATE SODIUM 100 MG CAP PO SCH (21:36)
[2017-06-02 23:00] VITALS: BP 112/69; PULSE 88; TEMP 36.8; O2SAT 92
[2017-06-03 00:06] LABS: INFLUENZA A PCR Neg for Influ A (NEG); INFLUENZA B PCR Neg for Influ B (NEG)
[2017-06-03 03:10] VITALS: BP 104/68; PULSE 93; TEMP 37; O2SAT 94
[2017-06-03] MEDS: LEVOTHYROXINE 75 MCG TAB PO SCH (05:41)
[2017-06-03 06:39] LABS: MEAN CELL VOLUME 99.1 fL (80-100); MEAN CORPUSCULAR HEMOGLOBIN 33.8 pg (25-34); MEAN CORPUSCULAR HGB CONC 34.1 g/dl (32-36); MEAN PLATELET VOLUME 9.3 fL (7.4-10.4); PLATELET COUNT 252 K/uL (130-400); RED BLOOD COUNT 3.43 M/uL (4.2-5.4); WHITE BLOOD COUNT 7.17 K/uL (4.8-10.8)
[2017-06-03] MEDS ORDERED: PERFLUTREN LIPID MICROSPHERE (DEFINITY) IV ONE (07:00)
[2017-06-03 07:12] LABS: BUN/CREATININE RATIO 15.7 (10-20); CALCIUM 8.2 mg/dl (8.5-10.1); CREATININE 0.89 mg/dl (0.60-1.20); MAGNESIUM 2.2 mg/dl (1.8-2.4); POTASSIUM 3.9 mmol/L (3.5-5.1)
--- NOTE | 2017-06-03 08:01 | Clinical Documentation Query ---
BREANN Camacho : CLINICAL DOCUMENTATION QUERY Patient is an 87 year old female admitted s/p unwitnessed fall for treatment of UTI and right forearm cellulitis. H&P notes a "healing wound on left ankle". Nursing notes suggestive of a "less than dime sized black nooksack over right ankle, red around black nooksack". This is suggestive of eschar and thus an unstageable ulcer if pressure is the likely etiology. Also, this suggests discrepancy in laterality. Please clarify as clinically appropriate. In your clinical opinion is this patient being managed for: ( ) Pressure ulcer of left ankle, unstageable ( ) Pressure ulcer of right ankle, unstageable ( ) Not Agree ( x ) Other explanation of clinical findings -Stage II ( ) Unable to determine (Please Define) ( ) Need to Discuss The medical record reflects the following clinical findings, treatment, and risk factors. Clinical Indicators: As above Treatment: WOCN consultation Risk Factors: Age, malnutrition Please clarify and document your clinical opinion in the progress notes and discharge summary. Terms such as "probable", "suspected", "likely", "questionable", "possible", or "still to be ruled out" are acceptable. IF IN AGREEMENT, YOU MUST DOCUMENT ABOVE DIAGNOSTIC STATEMENT IN DAILY PROGRESS NOTES AND DISCHARGE SUMMARY. This document is not part of the patient's record. Thank You, Evert Pool RN [phone]
[2017-06-03 08:02] VITALS: BP 126/77; PULSE 83; TEMP 36.8; O2SAT 93
--- NOTE | 2017-06-03 08:56 | ECHOCARDIOGRAM REPORT ---
*NOTICE TO RECEIVING CONSTITUTION PARTY AGENCY This information is strictly Confidential and protected under [place] law. [place] law prohibits you from making any further disclosure of this information unless further disclosure is expressly permitted by the written consent of the person to whom it pertains or is authorized by law. A general authorization for the release of medical or other information is not sufficient for this purpose. Hospital accepts no responsibility if the information is made available to any other person, INCLUDING THE PATIENT. Interpretation Summary * Name: MARK JACOBSON Study Date: 06/03/2017 06:31 AM BP: 104/68 mmHg * Patient Location: C.2T\S\S244\S\1 HR: 93 * : 1930 (M/d/y) Gender: Female Height: 67 in * Age: 87 yrs Ethnicity: DC Weight: 117 lb * Ordering Physician: Charmaine Torres * Referring Physician: ÁLVARO CASTILLO * Performed By: Nedra Clarke RDCS * * Reason For Study: AFIB * BSA: 1.6 m2 * -- Conclusions -- * Normal LV chamber size with mild concentric LVH. * Low normal LV systolic function with abnormal septal wall motion consistent with RV pressure/volume overload, otherwise, no segmental left ventricular wall motion abnormalities are noted, EF 50-55%. * The right ventricular cavity size is enlarged (proximal parasternal long axis right ventricular outflow tract dimension >3.3 cm). The right ventricular systolic function is normal as assessed by tricuspid annular plane systolic excursion (TAPSE) (normal >1.5 cm). * Aortic valve sclerosis moderate, without significant aortic valvular stenosis. * Calcified mitral apparatus. The mitral valve leaflets appear thickened, but open well. There is mild mitral regurgitation. There is no mitral valve stenosis. * Mild tricuspid regurgitation. * Severe biatrial enlargement. * No previous studies available for comparison. Procedure Details * A contrast injection of Definity was performed to improve assessment of LV function. * Contrast was injected into an intravenous site in the left arm. * One vial of Definity ultrasound contrast was diluted in normal saline to a total volume of 10 ml. A total of '2' ml of solution was administered during imaging. * Lot # [id number] of Definity utilized for procedure. * Expiration date 1 AUG 08. * The attending nurse who injected the contrast agent was ROSCOE CAT. Left Ventricle * The left ventricle is normal in size. * There is mild concentric left ventricular hypertrophy. * Left ventricular systolic function is low normal. * No segmental left ventricular wall motion abnormalities are noted. * Ejection Fraction = 50-55%. * Flattened septum is consistent with RV pressure/volume overload. Right Ventricle * The right ventricular cavity size is enlarged (proximal parasternal long axis right ventricular outflow tract dimension >3.3 cm). * The right ventricular systolic function is normal as assessed by tricuspid annular plane systolic excursion (TAPSE) (normal >1.5 cm). Atria * The left atrium is severely dilated. * The right atrium is severely dilated. * No ASD detected; PFO is not assessed. Mitral Valve * Calcified mitral apparatus. * The mitral valve leaflets appear thickened, but open well. * There is no mitral valve stenosis. * There is mild mitral regurgitation. Tricuspid Valve * The tricuspid valve anatomy is normal. * There is no tricuspid stenosis. * There is mild tricuspid regurgitation. Aortic Valve * The aortic valve is trileaflet. * Aortic valve sclerosis moderate, without significant aortic valvular stenosis. * No hemodynamically significant valvular aortic stenosis. Pulmonic Valve * The pulmonary valve is not well seen, but the Doppler examination is normal without significant regurgitation or stenosis. Great Vessels * The aortic root is normal size. Pericardium/Pleural * There is no pericardial effusion. MMode 2D Measurements and Calculations Ao root diam 3.7 cm Ao root area 10.8 cm\S\2 LA dimension 5.1 cm LA/Ao 1.4 LVAd ap4 25.8 cm\S\2 LVLd ap4 6.9 cm EDV(MOD-sp4) 80.9 ml EDV(sp4-el) 82.0 ml LVAs ap4 17.2 cm\S\2 LVLs ap4 6.1 cm ESV(MOD-sp4) 39.6 ml ESV(sp4-el) 40.9 ml EF(MOD-sp4) 51.0 % EF(sp4-el) 50.1 % LVAd ap2 24.2 cm\S\2 LVLd ap2 7.1 cm EDV(MOD-sp2) 68.7 ml EDV(sp2-el) 70.4 ml LVAs ap2 15.6 cm\S\2 LVLs ap2 5.9 cm ESV(MOD-sp2) 33.9 ml ESV(sp2-el) 35.1 ml EF(MOD-sp2) 50.7 % EF(sp2-el) 50.1 % LVLd %diff 3.0 % EDV(MOD-bp) 76.6 ml LVLs %diff -4.77 % ESV(MOD-bp) 37.0 ml EF(MOD-bp) 51.7 % SV(MOD-sp4) 41.3 ml SI(MOD-sp4) 25.6 ml/m\S\2 SV(MOD-sp2) 34.9 ml SI(MOD-sp2) 21.7 ml/m\S\2 SV(MOD-bp) 39.6 ml SI(MOD-bp) 24.6 ml/m\S\2 SV(sp4-el) 41.1 ml SI(sp4-el) 25.5 ml/m\S\2 SV(sp2-el) 35.3 ml SI(sp2-el) 21.9 ml/m\S\2 Doppler Measurements and Calculations MV E max pedrito 111.3 cm/sec MV dec time 0.15 sec Ao V2 max 116.5 cm/sec Ao max PG 5.4 mmHg Ao max PG (full) 3.4 mmHg LV V1 max PG 2.1 mmHg LV V1 max 71.8 cm/sec TR max pedrito 251.0 cm/sec
--- NOTE | 2017-06-03 09:24 | DIAGNOSTIC IMAGING REPORT ---
CT OF THE HEAD WITHOUT CONTRAST CLINICAL HISTORY: Fall. COMPARISON STUDY: Head CT June 02, 2017. CT DOSE: 614.27 mGy.cm TECHNIQUE: Helical axial images of the head were obtained without IV contrast. Automated exposure control was utilized for the study. A dose lowering technique was utilized adhering to the principles of ALARA. FINDINGS: No acute intracranial hemorrhage, midline shift or mass effect is present. Ventricular system is normal for age. Basilar cisterns are patent. There are no extra-axial collections. Exam is mildly compromised by motion artifact. There are no findings to suggest acute dural sinus thrombosis or acute territorial infarct. A right maxillary sinus air-fluid level is noted. There are secretions within the right maxillary sinus. Secretions within the right frontal and ethmoid sinuses are noted. There is no calvarial fracture. IMPRESSION: 1. No acute intracranial findings. 2. Findings suggestive of acute right maxillary sinusitis. Electronically signed by: Camden Lu M.D. 06/03/2017 9:23 AM Dictated Date/Time: 06/03/2017 9:20 AM
[2017-06-03] MEDS: DOCUSATE SODIUM 100 MG CAP PO SCH ×2 (09:41→19:56)
[2017-06-03] MEDS: VANCOMYCIN INJ 750 MG in SODIUM CHLORIDE 0.9% 250ML 250 ML IV SCH (09:41)
[2017-06-03] MEDS: CHOLECALCIFEROL 1000 INTER.UNIT TAB PO SCH (09:41)
[2017-06-03] MEDS: METOPROLOL SUCC 50MG EXT REL TAB PO SCH (09:41)
[2017-06-03] MEDS: BOOST VANILLA PO SCH ×6 (09:41→17:08)
[2017-06-03 11:47] VITALS: BP 124/76; PULSE 106; TEMP 36.7; O2SAT 94
[2017-06-03] MEDS ORDERED: CEFTRIAXONE SOD INJ 1 GM in DEXTROSE 5% ADD-VANTAGE 50ML 50 ML IV SCH (12:00)
--- NOTE | 2017-06-03 14:24 | Progress Note ---
Medicine Progress Note Date & Time of Visit: Jun 03, 2017 at 14:07. Subjective This is an 87yo F with paroxysmal A Fib, HTN, CHF, hypothyroidism and osteoporosis who presents with generalized weakness and confusion x 2 days after a fall at home. Today she is not oriented to place or time but this is not new according to her son. She has some skin tears on her R forearm but there is no restricted ROM or pain in her wrist. She denies any chest pain or shortness of breath or palpitations. Telemetry was reviewed and there were no events overnight. She continues to be in atrial fibrillation today. He CT head last night and this morning revealed no acute changes including no hemorrhage as she was on the Eliquis. The echo did not reveal any wall motion abnormalities this morning and there was normal LV and RV function. She states that she is eating without issue. Objective Last 8 Hrs Date Time Temp Pulse Resp B/P (MAP) Pulse Ox O2 Delivery O2 Flow Rate FiO2 06/03/17 12:00 Room Air 06/03/17 11:47 36.7 106 18 124/76 (92) 94 06/03/17 08:02 36.8 83 18 126/77 (93) 93 06/03/17 08:00 Room Air Physical Exam: GEN: thin, elderly, in no acute distress, alert and oriented to person only. Answers questions appropriately. HEENT: NC/AT, normal sclerae, MMM CARDIO: reg rate, irreg rhythm, S1/2 heard without m/g/r LUNGS: CTA bilaterally, no crackles, rales or wheezes, good diaphragmatic excursion ABD: soft, non-tender, non-distended, no rebound or guarding, +BS EXTREMITY: RP and DP palpable 2+ bilat, no LE swelling or edema, extremities are warm and well-perfused SCDs in place. MERE has 3 small skin tears that were redressed during this exam. The are not draining at this time. She has normal ROM of R wrist, fingers and elbow. NEURO: CN 2-12 grossly intact, sensation intact throughout MUSC: general deconditioning, no gross focal deficits SKIN: warm and dry and wounds as above. Laboratory Results: 06/03/17 06:22 06/03/17 06:22 Test 06/02/17 10:00 06/02/17 10:20 06/02/17 23:05 06/03/17 06:22 Immature Granulocyte % (Auto) 0.3 % White Blood Count 7.50 K/uL (4.8-10.8) Red Blood Count 3.76 M/uL (4.2-5.4) 3.43 M/uL (4.2-5.4) Hemoglobin 13.1 g/dL (12.0-16.0) Hematocrit 37.4 % (37-47) Mean Corpuscular Volume 99.5 fL (80-100) 99.1 fL (80-100) Mean Corpuscular Hemoglobin 34.8 pg (25-34) 33.8 pg (25-34) Mean Corpuscular Hemoglobin Concent 35.0 g/dl (32-36) 34.1 g/dl (32-36) Platelet Count 306 K/uL (130-400) Mean Platelet Volume 9.4 fL (7.4-10.4) 9.3 fL (7.4-10.4) Neutrophils (%) (Auto) 75.9 % Lymphocytes (%) (Auto) 11.2 % Monocytes (%) (Auto) 10.8 % Eosinophils (%) (Auto) 1.5 % Basophils (%) (Auto) 0.3 % Neutrophils # (Auto) 5.70 K/uL (1.4-6.5) Lymphocytes # (Auto) 0.84 K/uL (1.2-3.4) Monocytes # (Auto) 0.81 K/uL (0.11-0.59) Eosinophils # (Auto) 0.11 K/uL (0-0.5) Basophils # (Auto) 0.02 K/uL (0-0.2) Immature Granulocyte # (Auto) 0.02 K/uL (0.00-0.02) Prothrombin Time 11.2 SECONDS (9.0-12.0) Prothromb Time International Ratio 1.1 (0.9-1.1) Activated Partial Thromboplast Time 31.4 SECONDS (21.0-31.0) Partial Thromboplastin Ratio 1.2 Total Bilirubin 0.7 mg/dl (0.2-1) Aspartate Amino Transf (AST/SGOT) 25 U/L (15-37) Alanine Aminotransferase (ALT/SGPT) 30 U/L (12-78) Alkaline Phosphatase 120 U/L (45-117) Total Creatine Kinase 126 U/L (26-192) Troponin I 0.018 ng/ml (0-0.045) Total Protein 7.0 gm/dl (6.4-8.2) Albumin 3.2 gm/dl (3.4-5.0) Globulin 3.8 gm/dl (2.5-4.0) Albumin/Globulin Ratio 0.8 (0.9-2) Thyroid Stimulating Hormone (TSH) 1.230 uIu/ml (0.300-4.500) Urine Color YELLOW Urine Appearance CLEAR (CLEAR) Urine pH 7.0 (4.5-7.5) Urine Specific [place] 1.018 (1.000-1.030) Urine Protein NEG (NEG) Urine Glucose (UA) NEG (NEG) Urine Ketones NEG (NEG) Urine Occult Blood TRACE (NEG) Urine Nitrite POS (NEG) Urine Bilirubin NEG (NEG) Urine Urobilinogen NEG (NEG) Urine Leukocyte Esterase MODERATE (NEG) Urine WBC (Auto) >30 /hpf (0-5) Urine RBC (Auto) 0-4 /hpf (0-4) Urine Hyaline Casts (Auto) 10-30 /lpf (0-5) Urine Epithelial Cells (Auto) 0-5 /lpf (0-5) Urine Bacteria (Auto) 3+ (NEG) Influenza Type A (RT-PCR) Neg for Influ A (NEG) Influenza Type B (RT-PCR) Neg for Influ B (NEG) RDW Standard Deviation 56.8 fL (36.4-46.3) RDW Coefficient of Variation 15.7 % (11.5-14.5) Anion Gap 6.0 mmol/L (3-11) Est Creatinine Clear Calc Drug Dose 38.6 ml/min Estimated GFR () 67.1 Estimated GFR (Non- 57.9 BUN/Creatinine Ratio 15.7 (10-20) Calcium Level 8.2 mg/dl (8.5-10.1) Magnesium Level 2.2 mg/dl (1.8-2.4) Vitamin B12 Level > 2000 pg/mL (211-911) Date/Time Source Procedure Growth Status 06/02/17 10:10 Blood Blood Culture Pending Received 06/02/17 14:30 Nasal MRSA DNA Surveillance Screen - Final Specimen Negative for MRSA by DNA Probe Complete 06/02/17 10:20 Urine,Catheterized Urine Culture - Preliminary Gram Negative Bacilli Resulted Last 24 Hours Test 06/02/17 23:05 06/03/17 06:22 Influenza Type A (RT-PCR) Neg for Influ A Influenza Type B (RT-PCR) Neg for Influ B White Blood Count 7.17 K/uL Red Blood Count 3.43 M/uL Hemoglobin 11.6 g/dL Hematocrit 34.0 % Mean Corpuscular Volume 99.1 fL Mean Corpuscular Hemoglobin 33.8 pg Mean Corpuscular Hemoglobin Concent 34.1 g/dl RDW Standard Deviation 56.8 fL RDW Coefficient of Variation 15.7 % Platelet Count 252 K/uL Mean Platelet Volume 9.3 fL Sodium Level 138 mmol/L Potassium Level 3.9 mmol/L Chloride Level 105 mmol/L Carbon Dioxide Level 28 mmol/L Anion Gap 6.0 mmol/L Blood Urea Nitrogen 14 mg/dl Creatinine 0.89 mg/dl Est Creatinine Clear Calc Drug Dose 38.6 ml/min Estimated GFR () 67.1 Estimated GFR (Non- 57.9 BUN/Creatinine Ratio 15.7 Random Glucose 99 mg/dl Calcium Level 8.2 mg/dl Magnesium Level 2.2 mg/dl Vitamin B12 Level > 2000 pg/mL Date/Time Source Procedure Growth Status 06/02/17 14:30 Nasal MRSA DNA Surveillance Screen - Final Specimen Negative for MRSA by DNA Probe Complete Assessment & Plan This is an 87yo F with paroxysmal A Fib, HTN, CHF, hypothyroidism and osteoporosis who presents with generalized weakness and confusion x 2 days after a fall at home. Today she is not oriented to place or time but this is not new according to her son. She has some skin tears on her R forearm but there is no restricted ROM or pain in her wrist. She denies any chest pain or shortness of breath or palpitations. Telemetry was reviewed and there were no events overnight. She continues to be in atrial fibrillation today. He CT head last night and this morning revealed no acute changes including no hemorrhage as she was on the Eliquis. The echo did not reveal any wall motion abnormalities this morning and there was normal LV and RV function. She states that she is eating without issue. 1. UTI-continues on Rocephin while awaiting urine culture 2. Cellulitis R forearm-superficial redness, afebrile. Pt continues on vancomycin. Blood cultures are pending. Pt is not ill-appearing and appears less confused than yesterday. 3. Metabolic encephalopathy 2/2 UTI or other infection-appears to be resolved on abx. 4. Mechanical fall without loss of consciousness-cardiac workup was negative. Per history does not appear to have lost consciousness, however, this is the second unwitnessed event in the last month. As she is on Eliquis, this was held and she had CT scans of her head last night and this morning which revealed no acute hemorrhage. Awaiting PT/OT evaluation and recs. Fell on her R arm with initial xrays not revealing any acute fractures. 5. Atrial fibrillation-h/o PAF on Eliquis which was held in light of recent fall and concern for possible bleed. I discussed continuing Eliquis with her son and encouraged them to have a alix discussion with her PCP or [facility] regarding this. Will consider restarting tomorrow. 6. HTN: controlled, Lasix held, cont metoprolol. 7. Osteoporosis-cont home vit D 8. Hypothyroidisim-TSH WNL, cont Synthroid. 9. Chronic diastolic heart failure-Lasix was held out of concern for clinical dehydration initially. Will stop IVF now as patient is eating and will consider restarting Lasix in the next 1-2 days. DVT Ppx: SCDs. Eliquis held 2/2 falls. Code status: DNR per discussion with family on admission, living will PCP: Andrea Dispo: Discharge planning to return to [facility] once medically appropriate. Swathi Prescott DO [facility] Hospitalist Current Inpatient Medications: Current Inpatient Medications Medications (Trade) Dose Ordered Sig/Cherelle Route Start Time Stop Time Status Last Admin Dose Admin Acetaminophen (Tylenol Tab) 650 mg Q4H PRN PO 06/02/17 12:15 07/02/17 12:14 Ceftriaxone Sodium 1 gm/ Dextrose 50 ml @ 100 mls/hr Q24H IV 06/03/17 12:00 06/08/17 11:59 06/03/17 12:27 100 MLS/HR Vancomycin HCl (Consult) 1 ea UD PRN N/A 06/02/17 12:51 07/02/17 12:50 Enteral Nutritional Formula (Boost) 1 can BIDM PO 06/02/17 16:45 07/02/17 17:59 06/03/17 09:41 1 CAN Docusate Sodium (coLACE CAP) 100 mg BID PO 06/02/17 21:00 07/02/17 20:59 06/03/17 09:41 100 MG Levothyroxine Sodium (Synthroid Tab) 75 mcg DAILYBB PO 06/03/17 06:00 07/03/17 05:59 06/03/17 05:41 75 MCG Metoprolol Succinate (Toprol Xl Tab) 50 mg DAILY PO 06/03/17 09:00 07/03/17 08:59 06/03/17 09:41 50 MG Cholecalciferol (Vitamin D Tab) 2,000 inter.unit DAILY PO 06/03/17 09:00 07/03/17 08:59 06/03/17 09:41 2,000 INTER.UNIT Vancomycin HCl 750 mg/Sodium Chloride 265 ml @ 125 mls/hr DAILY@0800 IV 06/03/17 08:00 06/13/17 07:59 06/03/17 09:41 125 MLS/HR
[2017-06-03 15:00] VITALS: BP 126/70; PULSE 91; TEMP 36.9; O2SAT 96
[2017-06-03 16:37] VITALS: BP 126/70; PULSE 91; TEMP 36.9; O2SAT 96
--- NOTE | 2017-06-03 16:44 | DIAGNOSTIC IMAGING REPORT ---
(CHEST) THORAX WITHOUT CLINICAL HISTORY: 87 years-old Female presenting with GRACE nodule on CXR-2 cm. TECHNIQUE: Multidetector CT imaging of the chest was performed without the use of intravenous contrast. IV contrast: None. A dose lowering technique was used consistent with the principles of ALARA (as low as reasonably achievable). COMPARISON: None. CT DOSE (mGy.cm): The estimated cumulative dose is 233.47 mGy.cm. FINDINGS: [employer] topogram: Multiple levels of thoracic kyphoplasty, degenerative changes of the spine, and scoliosis noted. On soft tissue windows, normal thyroid and thoracic inlet. No axillary, supraclavicular, or mediastinal lymphadenopathy. Evaluation of the manuel limited without intravenous contrast. Enlargement of the main and right and left pulmonary arteries. Aortic valve and coronary artery calcification. Left atrial enlargement. Trace bilateral pleural effusions. No pericardial effusion. Moderate hiatal hernia. On lung windows, dependent opacities greatest in the left lower lobe with both solid consolidation and less pronounced nodular groundglass opacities. Similar though less extensive opacities noted in the right lower lobe. Few punctate nodular opacities noted in the lingula (series 4 image [id number]). Pleural calcification evident bilaterally. Right upper apical scarring. Large airways patent. On bone windows, exaggerated thoracic kyphosis. Postprocedure changes of kyphoplasty at multiple thoracic levels. Osteopenia. Vertebral body height loss noted at the kyphoplasty levels as well as L1. IMPRESSION: 1. Dependent opacities greatest in the left lower lobe raises concern for aspiration versus extensive atelectasis. 2. Trace bilateral pleural effusions. 3. Moderate hiatal hernia. 4. Osteopenia with vertebral body height loss and system with an age-indeterminate compression deformity of L1. Multiple additional levels demonstrate posttreatment changes of kyphoplasty. 5. Left atrial enlargement. Electronically signed by: Mohinder Keane M.D. 06/03/2017 4:43 PM Dictated Date/Time: 06/03/2017 4:37 PM
[2017-06-03 16:55] VITALS: BP 147/75; PULSE 84; TEMP 37.1; O2SAT 91
[2017-06-04 00:06] VITALS: BP 123/70; PULSE 97; TEMP 36.7; O2SAT 92
[2017-06-04] MEDS: LEVOTHYROXINE 75 MCG TAB PO SCH (06:34)
[2017-06-04 07:24] VITALS: BP 123/75; PULSE 85; TEMP 36.6; O2SAT 97
[2017-06-04 08:01] VITALS: O2SAT 97
[2017-06-04] MEDS: CHOLECALCIFEROL 1000 INTER.UNIT TAB PO SCH (08:07)
[2017-06-04] MEDS: DOCUSATE SODIUM 100 MG CAP PO SCH ×2 (08:07→20:30)
[2017-06-04] MEDS: METOPROLOL SUCC 50MG EXT REL TAB PO SCH (08:07)
[2017-06-04] MEDS: BOOST VANILLA PO SCH ×4 (08:10→16:27)
[2017-06-04] MEDS: VANCOMYCIN INJ 750 MG in SODIUM CHLORIDE 0.9% 250ML 250 ML IV SCH (09:43)
[2017-06-04] MEDS ORDERED: CIPROFLOXACIN CONSULT ACTIVE PRN ×2 (11:00)
[2017-06-04] MEDS ORDERED: KEFLEX PRN (11:00)
[2017-06-04] MEDS ORDERED: [UNRECOGNIZED DRUG - OTHER] PRN (11:00)
[2017-06-04] MEDS: CEPHALEXIN MONOHYDRATE 500 MG CAP PO SCH ×2 (11:15→20:31)
[2017-06-04] MEDS: CIPROFLOXACIN 250 MG TAB PO SCH ×2 (11:15→20:30)
[2017-06-04] MEDS: APIXABAN 2.5 MG TAB PO SCH ×2 (12:08→20:31)
[2017-06-04 15:50] VITALS: BP 130/77; PULSE 86; TEMP 36.5; O2SAT 97
--- NOTE | 2017-06-04 16:11 | Progress Note ---
Medicine Progress Note Date & Time of Visit: Jun 04, 2017 at 09:42. Subjective This is an 87yo F with paroxysmal A Fib, HTN, CHF, hypothyroidism and osteoporosis who presents with generalized weakness and confusion x 2 days after a fall at home. Improved mentation this morning. She is denying pain or UTI symptoms. She is tolerating PO. Wounds addressed by wound care nurse yesterday. No fevers overnight. Objective Last 8 Hrs Date Time Temp Pulse Resp B/P (MAP) Pulse Ox O2 Delivery O2 Flow Rate FiO2 06/04/17 08:01 97 Room Air 06/04/17 07:24 36.6 85 16 123/75 (91) 97 Room Air Physical Exam: GEN: thin, elderly, in no acute distress, alert and oriented to person only. Answers questions appropriately. HEENT: NC/AT, normal sclerae, MMM CARDIO: reg rate, irreg rhythm, S1/2 heard without m/g/r LUNGS: CTA bilaterally, no crackles, rales or wheezes, good diaphragmatic excursion ABD: soft, non-tender, non-distended, no rebound or guarding, +BS EXTREMITY: RP and DP palpable 2+ bilat, no LE swelling or edema, extremities are warm and well-perfused SCDs in place. MERE has 3 small skin tears that were redressed during this exam. The are not draining at this time. She has normal ROM of R wrist, fingers and elbow. RLE-Stage II ulceration on lateral malleolus. NEURO: CN 2-12 grossly intact, sensation intact throughout MUSC: general deconditioning, no gross focal deficits SKIN: warm and dry and wounds as above. Laboratory Results: 06/03/17 06:22 06/03/17 06:22 Test 06/02/17 10:00 06/02/17 10:20 06/02/17 23:05 06/03/17 06:22 Immature Granulocyte % (Auto) 0.3 % White Blood Count 7.50 K/uL (4.8-10.8) Red Blood Count 3.76 M/uL (4.2-5.4) 3.43 M/uL (4.2-5.4) Hemoglobin 13.1 g/dL (12.0-16.0) Hematocrit 37.4 % (37-47) Mean Corpuscular Volume 99.5 fL (80-100) 99.1 fL (80-100) Mean Corpuscular Hemoglobin 34.8 pg (25-34) 33.8 pg (25-34) Mean Corpuscular Hemoglobin Concent 35.0 g/dl (32-36) 34.1 g/dl (32-36) Platelet Count 306 K/uL (130-400) Mean Platelet Volume 9.4 fL (7.4-10.4) 9.3 fL (7.4-10.4) Neutrophils (%) (Auto) 75.9 % Lymphocytes (%) (Auto) 11.2 % Monocytes (%) (Auto) 10.8 % Eosinophils (%) (Auto) 1.5 % Basophils (%) (Auto) 0.3 % Neutrophils # (Auto) 5.70 K/uL (1.4-6.5) Lymphocytes # (Auto) 0.84 K/uL (1.2-3.4) Monocytes # (Auto) 0.81 K/uL (0.11-0.59) Eosinophils # (Auto) 0.11 K/uL (0-0.5) Basophils # (Auto) 0.02 K/uL (0-0.2) Immature Granulocyte # (Auto) 0.02 K/uL (0.00-0.02) Prothrombin Time 11.2 SECONDS (9.0-12.0) Prothromb Time International Ratio 1.1 (0.9-1.1) Activated Partial Thromboplast Time 31.4 SECONDS (21.0-31.0) Partial Thromboplastin Ratio 1.2 Total Bilirubin 0.7 mg/dl (0.2-1) Aspartate Amino Transf (AST/SGOT) 25 U/L (15-37) Alanine Aminotransferase (ALT/SGPT) 30 U/L (12-78) Alkaline Phosphatase 120 U/L (45-117) Total Creatine Kinase 126 U/L (26-192) Troponin I 0.018 ng/ml (0-0.045) Total Protein 7.0 gm/dl (6.4-8.2) Albumin 3.2 gm/dl (3.4-5.0) Globulin 3.8 gm/dl (2.5-4.0) Albumin/Globulin Ratio 0.8 (0.9-2) Thyroid Stimulating Hormone (TSH) 1.230 uIu/ml (0.300-4.500) Urine Color YELLOW Urine Appearance CLEAR (CLEAR) Urine pH 7.0 (4.5-7.5) Urine Specific [place] 1.018 (1.000-1.030) Urine Protein NEG (NEG) Urine Glucose (UA) NEG (NEG) Urine Ketones NEG (NEG) Urine Occult Blood TRACE (NEG) Urine Nitrite POS (NEG) Urine Bilirubin NEG (NEG) Urine Urobilinogen NEG (NEG) Urine Leukocyte Esterase MODERATE (NEG) Urine WBC (Auto) >30 /hpf (0-5) Urine RBC (Auto) 0-4 /hpf (0-4) Urine Hyaline Casts (Auto) 10-30 /lpf (0-5) Urine Epithelial Cells (Auto) 0-5 /lpf (0-5) Urine Bacteria (Auto) 3+ (NEG) Influenza Type A (RT-PCR) Neg for Influ A (NEG) Influenza Type B (RT-PCR) Neg for Influ B (NEG) RDW Standard Deviation 56.8 fL (36.4-46.3) RDW Coefficient of Variation 15.7 % (11.5-14.5) Anion Gap 6.0 mmol/L (3-11) Est Creatinine Clear Calc Drug Dose 38.6 ml/min Estimated GFR () 67.1 Estimated GFR (Non- 57.9 BUN/Creatinine Ratio 15.7 (10-20) Calcium Level 8.2 mg/dl (8.5-10.1) Magnesium Level 2.2 mg/dl (1.8-2.4) Vitamin B12 Level > 2000 pg/mL (211-911) Date/Time Source Procedure Growth Status 06/02/17 10:10 Blood Blood Culture - Preliminary NO GROWTH TO DATE. Resulted 06/02/17 14:30 Nasal MRSA DNA Surveillance Screen - Final Specimen Negative for MRSA by DNA Probe Complete 06/02/17 10:20 Urine,Catheterized Urine Culture - Final Pseudomonas Aeruginosa Complete Assessment & Plan This is an 87yo F with paroxysmal A Fib, HTN, CHF, hypothyroidism and osteoporosis who presents with generalized weakness and confusion x 2 days after a fall at home. Improved mentation this morning. She is denying pain or UTI symptoms. She is tolerating PO. Wounds addressed by wound care nurse yesterday. No fevers overnight. 1. UTI-Pseudomonas hannah-sensitive. Changing abx to Cipro per culture results. 2. Cellulitis R forearm-superficial redness, afebrile. Vancomycin switched to Keflex. Although high risk for MRSA, nasal swab is negative this admission, no evidence of purulent drainage. Blood cultures are negative and she is clinically improved today. 3. Metabolic encephalopathy 2/2 UTI or other infection-appears to be resolved on abx. 4. Mechanical fall without loss of consciousness-cardiac workup was negative. Per history does not appear to have lost consciousness, however, this is the second unwitnessed event in the last month. Eliquis restarted for stroke prophy , however, I did mention to her son to discuss the risks/benefits of this with PCP within 1-2 weeks post-discharge. Fell on her R arm with initial xrays not revealing any acute fractures. She denies pain in this area today. 5. Atrial fibrillation-Eliquis restarted, cont Toprol XL 6. HTN: controlled, Lasix held, cont metoprolol. 7. Osteoporosis-cont home vit D 8. Hypothyroidisim-TSH WNL, cont Synthroid. 9. Chronic diastolic heart failure-Lasix was held out of concern for clinical dehydration initially. Will stop IVF now as patient is eating and will consider restarting Lasix in the next 1-2 days. 10. Stage II [id number] by wound care yesterday. Cont Aquacel and Optifoam. DVT Ppx: Eliquis Code status: DNR per discussion with family on admission, living will PCP: Andrea Dispo: Discharge planning to return to [facility] once medically appropriate with transition through SNF/rehab. Swathi Prescott DO [facility] Hospitalist Current Inpatient Medications: Current Inpatient Medications Medications (Trade) Dose Ordered Sig/Cherelle Route Start Time Stop Time Status Last Admin Dose Admin Acetaminophen (Tylenol Tab) 650 mg Q4H PRN PO 06/02/17 12:15 07/02/17 12:14 Ceftriaxone Sodium 1 gm/ Dextrose 50 ml @ 100 mls/hr Q24H IV 06/03/17 12:00 06/08/17 11:59 06/03/17 12:27 100 MLS/HR Vancomycin HCl (Consult) 1 ea UD PRN N/A 06/02/17 12:51 07/02/17 12:50 Enteral Nutritional Formula (Boost) 1 can BIDM PO 06/02/17 16:45 07/02/17 17:59 06/03/17 17:08 1 CAN Docusate Sodium (coLACE CAP) 100 mg BID PO 06/02/17 21:00 07/02/17 20:59 06/03/17 19:56 100 MG Levothyroxine Sodium (Synthroid Tab) 75 mcg DAILYBB PO 06/03/17 06:00 07/03/17 05:59 06/04/17 06:34 75 MCG Metoprolol Succinate (Toprol Xl Tab) 50 mg DAILY PO 06/03/17 09:00 07/03/17 08:59 06/03/17 09:41 50 MG Cholecalciferol (Vitamin D Tab) 2,000 inter.unit DAILY PO 06/03/17 09:00 07/03/17 08:59 06/03/17 09:41 2,000 INTER.UNIT Vancomycin HCl 750 mg/Sodium Chloride 265 ml @ 125 mls/hr DAILY@0800 IV 06/03/17 08:00 06/13/17 07:59 06/03/17 09:41 125 MLS/HR
[2017-06-04 20:15] VITALS: BP 146/77; PULSE 106; TEMP 37.2; O2SAT 96
[2017-06-04 23:36] VITALS: BP 110/58; PULSE 102; TEMP 36.7; O2SAT 92
[2017-06-05] MEDS: LEVOTHYROXINE 75 MCG TAB PO SCH (06:19)
[2017-06-05 07:19] VITALS: BP 147/76; PULSE 88; TEMP 36.9; O2SAT 93
[2017-06-05] MEDS ORDERED: VANCOMYCIN TROUGH ONE (07:30)
[2017-06-05] MEDS: BOOST VANILLA PO SCH ×4 (07:57→16:52)
[2017-06-05] MEDS: CHOLECALCIFEROL 1000 INTER.UNIT TAB PO SCH (07:57)
[2017-06-05] MEDS: CEPHALEXIN MONOHYDRATE 500 MG CAP PO SCH ×2 (07:58→20:23)
[2017-06-05] MEDS: CIPROFLOXACIN 250 MG TAB PO SCH ×2 (07:58→20:24)
[2017-06-05] MEDS: METOPROLOL SUCC 50MG EXT REL TAB PO SCH (07:58)
[2017-06-05] MEDS: DOCUSATE SODIUM 100 MG CAP PO SCH ×2 (07:58→20:23)
[2017-06-05] MEDS: APIXABAN 2.5 MG TAB PO SCH ×2 (07:58→20:23)
[2017-06-05 08:00] VITALS: O2SAT 93
[2017-06-05 09:46] VITALS: BP 114/61
[2017-06-05 15:58] VITALS: BP 134/68; PULSE 100; TEMP 36.4; O2SAT 97
--- NOTE | 2017-06-05 17:02 | Progress Note ---
Medicine Progress Note Date & Time of Visit: Jun 05, 2017 at 13:37. Subjective This is an 87 yo F with paroxysmal A Fib, HTN, CHF, hypothyroidism and osteoporosis who presents with generalized weakness and confusion x 2 days after a fall at home. She is denying pain or UTI symptoms. She is tolerating PO. Wounds addressed by wound care nurse. Persistent weakness and apathy towards food. We discussed her 's admission to [facility] and she thought that sounded fine. Objective Last 8 Hrs Date Time Temp Pulse Resp B/P (MAP) Pulse Ox O2 Delivery O2 Flow Rate FiO2 06/05/17 09:46 114/61 (78) 06/05/17 08:00 93 Room Air 06/05/17 07:19 36.9 88 16 147/76 (99) 93 Room Air Physical Exam: GEN: thin, elderly, in no acute distress, alert and oriented to person only. Answers questions appropriately. HEENT: NC/AT, normal sclerae, MMM CARDIO: reg rate, irreg rhythm, S1/2 heard without m/g/r LUNGS: CTA bilaterally, no crackles, rales or wheezes, good diaphragmatic excursion ABD: soft, non-tender, non-distended, no rebound or guarding, +BS EXTREMITY: RP and DP palpable 2+ bilat, no LE swelling or edema, extremities are warm and well-perfused SCDs in place. MERE has 3 small skin tears that were redressed during this exam. The are not draining at this time. She has normal ROM of R wrist, fingers and elbow. RLE-Stage II ulceration on lateral malleolus. NEURO: CN 2-12 grossly intact, sensation intact throughout MUSC: general deconditioning, no gross focal deficits SKIN: warm and dry and wounds as above. Laboratory Results: 06/03/17 06:22 06/03/17 06:22 Test 06/02/17 10:00 06/02/17 10:20 06/02/17 23:05 06/03/17 06:22 Immature Granulocyte % (Auto) 0.3 % White Blood Count 7.50 K/uL (4.8-10.8) Red Blood Count 3.76 M/uL (4.2-5.4) 3.43 M/uL (4.2-5.4) Hemoglobin 13.1 g/dL (12.0-16.0) Hematocrit 37.4 % (37-47) Mean Corpuscular Volume 99.5 fL (80-100) 99.1 fL (80-100) Mean Corpuscular Hemoglobin 34.8 pg (25-34) 33.8 pg (25-34) Mean Corpuscular Hemoglobin Concent 35.0 g/dl (32-36) 34.1 g/dl (32-36) Platelet Count 306 K/uL (130-400) Mean Platelet Volume 9.4 fL (7.4-10.4) 9.3 fL (7.4-10.4) Neutrophils (%) (Auto) 75.9 % Lymphocytes (%) (Auto) 11.2 % Monocytes (%) (Auto) 10.8 % Eosinophils (%) (Auto) 1.5 % Basophils (%) (Auto) 0.3 % Neutrophils # (Auto) 5.70 K/uL (1.4-6.5) Lymphocytes # (Auto) 0.84 K/uL (1.2-3.4) Monocytes # (Auto) 0.81 K/uL (0.11-0.59) Eosinophils # (Auto) 0.11 K/uL (0-0.5) Basophils # (Auto) 0.02 K/uL (0-0.2) Immature Granulocyte # (Auto) 0.02 K/uL (0.00-0.02) Prothrombin Time 11.2 SECONDS (9.0-12.0) Prothromb Time International Ratio 1.1 (0.9-1.1) Activated Partial Thromboplast Time 31.4 SECONDS (21.0-31.0) Partial Thromboplastin Ratio 1.2 Total Bilirubin 0.7 mg/dl (0.2-1) Aspartate Amino Transf (AST/SGOT) 25 U/L (15-37) Alanine Aminotransferase (ALT/SGPT) 30 U/L (12-78) Alkaline Phosphatase 120 U/L (45-117) Total Creatine Kinase 126 U/L (26-192) Troponin I 0.018 ng/ml (0-0.045) Total Protein 7.0 gm/dl (6.4-8.2) Albumin 3.2 gm/dl (3.4-5.0) Globulin 3.8 gm/dl (2.5-4.0) Albumin/Globulin Ratio 0.8 (0.9-2) Thyroid Stimulating Hormone (TSH) 1.230 uIu/ml (0.300-4.500) Urine Color YELLOW Urine Appearance CLEAR (CLEAR) Urine pH 7.0 (4.5-7.5) Urine Specific [place] 1.018 (1.000-1.030) Urine Protein NEG (NEG) Urine Glucose (UA) NEG (NEG) Urine Ketones NEG (NEG) Urine Occult Blood TRACE (NEG) Urine Nitrite POS (NEG) Urine Bilirubin NEG (NEG) Urine Urobilinogen NEG (NEG) Urine Leukocyte Esterase MODERATE (NEG) Urine WBC (Auto) >30 /hpf (0-5) Urine RBC (Auto) 0-4 /hpf (0-4) Urine Hyaline Casts (Auto) 10-30 /lpf (0-5) Urine Epithelial Cells (Auto) 0-5 /lpf (0-5) Urine Bacteria (Auto) 3+ (NEG) Influenza Type A (RT-PCR) Neg for Influ A (NEG) Influenza Type B (RT-PCR) Neg for Influ B (NEG) RDW Standard Deviation 56.8 fL (36.4-46.3) RDW Coefficient of Variation 15.7 % (11.5-14.5) Anion Gap 6.0 mmol/L (3-11) Est Creatinine Clear Calc Drug Dose 38.6 ml/min Estimated GFR () 67.1 Estimated GFR (Non- 57.9 BUN/Creatinine Ratio 15.7 (10-20) Calcium Level 8.2 mg/dl (8.5-10.1) Magnesium Level 2.2 mg/dl (1.8-2.4) Vitamin B12 Level > 2000 pg/mL (211-911) Date/Time Source Procedure Growth Status 06/02/17 10:10 Blood Blood Culture - Preliminary NO GROWTH TO DATE. Resulted 06/02/17 14:30 Nasal MRSA DNA Surveillance Screen - Final Specimen Negative for MRSA by DNA Probe Complete 06/02/17 10:20 Urine,Catheterized Urine Culture - Final Pseudomonas Aeruginosa Complete Assessment & Plan This is an 87 yo F with paroxysmal A Fib, HTN, CHF, hypothyroidism and osteoporosis who presents with generalized weakness and confusion x 2 days after a fall at home. She is denying pain or UTI symptoms. She is tolerating PO. Wounds addressed by wound care nurse. Persistent weakness and apathy towards food. We discussed her 's admission to [facility] and she thought that sounded fine. 1. UTI-Pseudomonas hannah-sensitive. Changing abx to Cipro per culture results. 2. Cellulitis R forearm-superficial redness, afebrile. Vancomycin switched to Keflex. Although high risk for MRSA, nasal swab is negative this admission, no evidence of purulent drainage. Blood cultures are negative and she is clinically improved today. 3. Metabolic encephalopathy 2/2 UTI or other infection-appears to be resolved on abx. 4. Mechanical fall without loss of consciousness-cardiac workup was negative. Per history does not appear to have lost consciousness, however, this is the second unwitnessed event in the last month. Eliquis restarted for stroke prophy , however, I did mention to her son to discuss the risks/benefits of this with PCP within 1-2 weeks post-discharge. Fell on her R arm with initial xrays not revealing any acute fractures. She denies pain in this area today. No need for further imaging at this time. 5. Atrial fibrillation-Eliquis restarted, cont Toprol XL 6. HTN: controlled, Lasix held, cont metoprolol. 7. Osteoporosis-cont home vit D 8. Hypothyroidisim-TSH WNL, cont Synthroid. 9. Chronic diastolic heart failure-Lasix was held out of concern for clinical dehydration initially. Will cont to hold now. Pt is not having SOB, swelling and is very frail and delicate. There is more concern for dehydration and worsening fall risk at this point with unneeded medications that for heart failure. 10. Stage II [id number] by wound care yesterday. Cont Aquacel and Optifoam. DVT Ppx: Eliquis Code status: DNR per discussion with family on admission, living will PCP: Andrea Dispo: Discharge planning to return to [facility] once medically appropriate with transition through SNF/rehab. Swathi Prescott DO [facility] Hospitalist Current Inpatient Medications: Current Inpatient Medications Medications (Trade) Dose Ordered Sig/Cherelle Route Start Time Stop Time Status Last Admin Dose Admin Acetaminophen (Tylenol Tab) 650 mg Q4H PRN PO 06/02/17 12:15 07/02/17 12:14 Enteral Nutritional Formula (Boost) 1 can BIDM PO 06/02/17 16:45 07/02/17 17:59 06/05/17 07:57 1 CAN Docusate Sodium (coLACE CAP) 100 mg BID PO 06/02/17 21:00 07/02/17 20:59 06/05/17 07:58 100 MG Levothyroxine Sodium (Synthroid Tab) 75 mcg DAILYBB PO 06/03/17 06:00 07/03/17 05:59 06/05/17 06:19 75 MCG Metoprolol Succinate (Toprol Xl Tab) 50 mg DAILY PO 06/03/17 09:00 07/03/17 08:59 06/05/17 07:58 50 MG Cholecalciferol (Vitamin D Tab) 2,000 inter.unit DAILY PO 06/03/17 09:00 07/03/17 08:59 06/05/17 07:57 2,000 INTER.UNIT Apixaban (Eliquis Tab) 2.5 mg BID PO 06/04/17 09:45 07/04/17 09:44 06/05/17 07:58 2.5 MG Ciprofloxacin (Ciprofloxacin Tab) 250 mg BID PO 06/04/17 11:00 06/07/17 10:59 06/05/17 07:58 250 MG Cephalexin Monohydrate (Keflex Cap) 500 mg BID PO 06/04/17 11:00 06/14/17 10:59 06/05/17 07:58 500 MG Ciprofloxacin (Consult) 1 ea UD PRN N/A 06/04/17 11:00 07/04/17 10:59 Miscellaneous Information 1 ea UD PRN N/A 06/04/17 11:00 07/04/17 10:59
[2017-06-05 23:15] VITALS: BP 109/72; PULSE 97; TEMP 36.3; O2SAT 94
[2017-06-06] MEDS: LEVOTHYROXINE 75 MCG TAB PO SCH (06:09)
[2017-06-06 07:06] LABS: HEMATOCRIT 35.1 % (37-47); MEAN CELL VOLUME 98.3 fL (80-100); MEAN CORPUSCULAR HEMOGLOBIN 33.9 pg (25-34); MEAN CORPUSCULAR HGB CONC 34.5 g/dl (32-36); MEAN PLATELET VOLUME 9.3 fL (7.4-10.4); PLATELET COUNT 279 K/uL (130-400); RED BLOOD COUNT 3.57 M/uL (4.2-5.4); WHITE BLOOD COUNT 5.96 K/uL (4.8-10.8)
[2017-06-06 07:31] LABS: BUN/CREATININE RATIO 19.6 (10-20); CALCIUM 8.3 mg/dl (8.5-10.1); CREATININE 0.71 mg/dl (0.60-1.20); POTASSIUM 4.4 mmol/L (3.5-5.1)
[2017-06-06 08:52] VITALS: BP 135/82; PULSE 89; TEMP 36.4; O2SAT 94
[2017-06-06] MEDS: CIPROFLOXACIN 250 MG TAB PO SCH ×2 (09:09→19:58)
[2017-06-06] MEDS: BOOST VANILLA PO SCH ×4 (09:09→17:22)
[2017-06-06] MEDS: APIXABAN 2.5 MG TAB PO SCH ×2 (09:09→19:58)
[2017-06-06] MEDS: DOCUSATE SODIUM 100 MG CAP PO SCH ×2 (09:09→19:58)
[2017-06-06] MEDS: CHOLECALCIFEROL 1000 INTER.UNIT TAB PO SCH (09:09)
[2017-06-06] MEDS: METOPROLOL SUCC 50MG EXT REL TAB PO SCH (09:10)
[2017-06-06] MEDS: CEPHALEXIN MONOHYDRATE 500 MG CAP PO SCH ×2 (09:10→19:58)
[2017-06-06 15:24] VITALS: BP 121/79; PULSE 103; TEMP 36.8; O2SAT 94
--- NOTE | 2017-06-06 18:25 | Progress Note ---
Medicine Progress Note Date & Time of Visit: Jun 06, 2017 at 18:21. Subjective This is an 87 yo F with paroxysmal A Fib, HTN, CHF, hypothyroidism and osteoporosis who presents with generalized weakness and confusion x 2 days after a fall at home. She is denying pain or UTI symptoms. She is tolerating PO. Wounds addressed by wound care nurse and patient denies pain in her arms or wrists. Persistent weakness and apathy towards food. We discussed her 's admission to [facility] and she thought that sounded fine. Pending PT eval for going back to [facility] vs [facility] for rehab. Objective Last 8 Hrs Date Time Temp Pulse Resp B/P (MAP) Pulse Ox O2 Delivery O2 Flow Rate FiO2 06/06/17 16:00 Room Air 06/06/17 15:24 36.8 103 16 121/79 (93) 94 Room Air Physical Exam: GEN: thin, elderly, in no acute distress, alert and oriented to person only. Answers questions appropriately. HEENT: NC/AT, normal sclerae, MMM CARDIO: reg rate, irreg rhythm, S1/2 heard without m/g/r LUNGS: CTA bilaterally, no crackles, rales or wheezes, good diaphragmatic excursion ABD: soft, non-tender, non-distended, no rebound or guarding, +BS EXTREMITY: RP and DP palpable 2+ bilat, no LE swelling or edema, extremities are warm and well-perfused SCDs in place. MERE has 3 small skin tears-two of which were just wrapped and the one proxima to her elbow is closed and healing very well. She has less erythema overall to her forearm area. No warmth. She has normal ROM of R wrist, fingers and elbow. RLE-Stage II ulceration on lateral malleolus. NEURO: CN 2-12 grossly intact, sensation intact throughout MUSC: general deconditioning, no gross focal deficits SKIN: warm and dry and wounds as above. Laboratory Results: 06/06/17 06:53 06/06/17 06:53 Test 06/02/17 10:00 06/02/17 10:20 06/02/17 23:05 06/03/17 06:22 Immature Granulocyte % (Auto) 0.3 % White Blood Count 7.50 K/uL (4.8-10.8) Red Blood Count 3.76 M/uL (4.2-5.4) Hemoglobin 13.1 g/dL (12.0-16.0) Hematocrit 37.4 % (37-47) Mean Corpuscular Volume 99.5 fL (80-100) Mean Corpuscular Hemoglobin 34.8 pg (25-34) Mean Corpuscular Hemoglobin Concent 35.0 g/dl (32-36) Platelet Count 306 K/uL (130-400) Mean Platelet Volume 9.4 fL (7.4-10.4) Neutrophils (%) (Auto) 75.9 % Lymphocytes (%) (Auto) 11.2 % Monocytes (%) (Auto) 10.8 % Eosinophils (%) (Auto) 1.5 % Basophils (%) (Auto) 0.3 % Neutrophils # (Auto) 5.70 K/uL (1.4-6.5) Lymphocytes # (Auto) 0.84 K/uL (1.2-3.4) Monocytes # (Auto) 0.81 K/uL (0.11-0.59) Eosinophils # (Auto) 0.11 K/uL (0-0.5) Basophils # (Auto) 0.02 K/uL (0-0.2) Immature Granulocyte # (Auto) 0.02 K/uL (0.00-0.02) Prothrombin Time 11.2 SECONDS (9.0-12.0) Prothromb Time International Ratio 1.1 (0.9-1.1) Activated Partial Thromboplast Time 31.4 SECONDS (21.0-31.0) Partial Thromboplastin Ratio 1.2 Total Bilirubin 0.7 mg/dl (0.2-1) Aspartate Amino Transf (AST/SGOT) 25 U/L (15-37) Alanine Aminotransferase (ALT/SGPT) 30 U/L (12-78) Alkaline Phosphatase 120 U/L (45-117) Total Creatine Kinase 126 U/L (26-192) Troponin I 0.018 ng/ml (0-0.045) Total Protein 7.0 gm/dl (6.4-8.2) Albumin 3.2 gm/dl (3.4-5.0) Globulin 3.8 gm/dl (2.5-4.0) Albumin/Globulin Ratio 0.8 (0.9-2) Thyroid Stimulating Hormone (TSH) 1.230 uIu/ml (0.300-4.500) Urine Color YELLOW Urine Appearance CLEAR (CLEAR) Urine pH 7.0 (4.5-7.5) Urine Specific [place] 1.018 (1.000-1.030) Urine Protein NEG (NEG) Urine Glucose (UA) NEG (NEG) Urine Ketones NEG (NEG) Urine Occult Blood TRACE (NEG) Urine Nitrite POS (NEG) Urine Bilirubin NEG (NEG) Urine Urobilinogen NEG (NEG) Urine Leukocyte Esterase MODERATE (NEG) Urine WBC (Auto) >30 /hpf (0-5) Urine RBC (Auto) 0-4 /hpf (0-4) Urine Hyaline Casts (Auto) 10-30 /lpf (0-5) Urine Epithelial Cells (Auto) 0-5 /lpf (0-5) Urine Bacteria (Auto) 3+ (NEG) Influenza Type A (RT-PCR) Neg for Influ A (NEG) Influenza Type B (RT-PCR) Neg for Influ B (NEG) Magnesium Level 2.2 mg/dl (1.8-2.4) Vitamin B12 Level > 2000 pg/mL (211-911) Test 06/06/17 06:53 Red Blood Count 3.57 M/uL (4.2-5.4) Mean Corpuscular Volume 98.3 fL (80-100) Mean Corpuscular Hemoglobin 33.9 pg (25-34) Mean Corpuscular Hemoglobin Concent 34.5 g/dl (32-36) RDW Standard Deviation 56.3 fL (36.4-46.3) RDW Coefficient of Variation 15.6 % (11.5-14.5) Mean Platelet Volume 9.3 fL (7.4-10.4) Anion Gap 5.0 mmol/L (3-11) Est Creatinine Clear Calc Drug Dose 48.3 ml/min Estimated GFR () 88.1 Estimated GFR (Non- 76.0 BUN/Creatinine Ratio 19.6 (10-20) Calcium Level 8.3 mg/dl (8.5-10.1) 25-Hydroxy Vitamin D Total 37.4 ng/ml (30-100) Date/Time Source Procedure Growth Status 06/02/17 10:10 Blood Blood Culture - Preliminary NO GROWTH TO DATE. Resulted 06/02/17 14:30 Nasal MRSA DNA Surveillance Screen - Final Specimen Negative for MRSA by DNA Probe Complete 06/02/17 10:20 Urine,Catheterized Urine Culture - Final Pseudomonas Aeruginosa Complete Last 24 Hours Test 06/06/17 06:53 White Blood Count 5.96 K/uL Red Blood Count 3.57 M/uL Hemoglobin 12.1 g/dL Hematocrit 35.1 % Mean Corpuscular Volume 98.3 fL Mean Corpuscular Hemoglobin 33.9 pg Mean Corpuscular Hemoglobin Concent 34.5 g/dl RDW Standard Deviation 56.3 fL RDW Coefficient of Variation 15.6 % Platelet Count 279 K/uL Mean Platelet Volume 9.3 fL Sodium Level 135 mmol/L Potassium Level 4.4 mmol/L Chloride Level 103 mmol/L Carbon Dioxide Level 27 mmol/L Anion Gap 5.0 mmol/L Blood Urea Nitrogen 14 mg/dl Creatinine 0.71 mg/dl Est Creatinine Clear Calc Drug Dose 48.3 ml/min Estimated GFR () 88.1 Estimated GFR (Non- 76.0 BUN/Creatinine Ratio 19.6 Random Glucose 99 mg/dl Calcium Level 8.3 mg/dl 25-Hydroxy Vitamin D Total 37.4 ng/ml Assessment & Plan This is an 87 yo F with paroxysmal A Fib, HTN, CHF, hypothyroidism and osteoporosis who presents with generalized weakness and confusion x 2 days after a fall at home. She is denying pain or UTI symptoms. She is tolerating PO. Wounds addressed by wound care nurse and patient denies pain in her arms or wrists. Persistent weakness and apathy towards food. We discussed her 's admission to [facility] and she thought that sounded fine. Pending PT eval for going back to [facility] vs [facility] for rehab. 1. UTI-Pseudomonas hannah-sensitive. Changing abx to Cipro per culture results. 2. Cellulitis R forearm-superficial redness, afebrile. Vancomycin switched to Keflex. Although high risk for MRSA, nasal swab is negative this admission, no evidence of purulent drainage. Blood cultures are negative and she continues to improve. 3. Metabolic encephalopathy 2/2 UTI or other infection-resolved. 4. Mechanical fall without loss of consciousness-cardiac workup was negative. Per history does not appear to have lost consciousness, however, this is the second unwitnessed event in the last month. Eliquis restarted for stroke prophy , however, I did mention to her son to discuss the risks/benefits of this with PCP within 1-2 weeks post-discharge. Fell on her R arm with initial xrays not revealing any acute fractures. She denies pain in this area today. No need for further imaging at this time. 5. Atrial fibrillation-Eliquis restarted, cont Toprol XL 6. HTN: controlled, Lasix held, cont metoprolol. 7. Osteoporosis-cont home vit D 8. Hypothyroidisim-TSH WNL, cont Synthroid. 9. Chronic diastolic heart failure-Lasix was held out of concern for clinical dehydration initially. Will cont to hold now. Pt is not having SOB, swelling and is very frail and delicate. There is more concern for dehydration and worsening fall risk at this point with unneeded medications that for heart failure. 10. Stage II [id number] by wound care yesterday. Cont Aquacel and Optifoam. Will need outpatient wound care for this. DVT Ppx: Eliquis Code status: DNR per discussion with family on admission, living will PCP: Andrea Dispo: Discharge planning to return to [facility] once medically appropriate with transition through SNF/rehab. Swathi Prescott DO [facility] Hospitalist Current Inpatient Medications: Current Inpatient Medications Medications (Trade) Dose Ordered Sig/Cherelle Route Start Time Stop Time Status Last Admin Dose Admin Acetaminophen (Tylenol Tab) 650 mg Q4H PRN PO 06/02/17 12:15 07/02/17 12:14 Enteral Nutritional Formula (Boost) 1 can BIDM PO 06/02/17 16:45 07/02/17 17:59 06/06/17 17:22 1 CAN Docusate Sodium (coLACE CAP) 100 mg BID PO 06/02/17 21:00 07/02/17 20:59 06/06/17 09:09 100 MG Levothyroxine Sodium (Synthroid Tab) 75 mcg DAILYBB PO 06/03/17 06:00 07/03/17 05:59 06/06/17 06:09 75 MCG Metoprolol Succinate (Toprol Xl Tab) 50 mg DAILY PO 06/03/17 09:00 07/03/17 08:59 06/06/17 09:10 50 MG Cholecalciferol (Vitamin D Tab) 2,000 inter.unit DAILY PO 06/03/17 09:00 07/03/17 08:59 06/06/17 09:09 2,000 INTER.UNIT Apixaban (Eliquis Tab) 2.5 mg BID PO 06/04/17 09:45 07/04/17 09:44 06/06/17 09:09 2.5 MG Ciprofloxacin (Ciprofloxacin Tab) 250 mg BID PO 06/04/17 11:00 06/07/17 10:59 06/06/17 09:09 250 MG Cephalexin Monohydrate (Keflex Cap) 500 mg BID PO 06/04/17 11:00 06/14/17 10:59 06/06/17 09:10 500 MG Ciprofloxacin (Consult) 1 ea UD PRN N/A 06/04/17 11:00 07/04/17 10:59 Miscellaneous Information 1 ea UD PRN N/A 06/04/17 11:00 07/04/17 10:59
[2017-06-06 23:44] VITALS: BP 136/75; PULSE 88; TEMP 36.8; O2SAT 93
[2017-06-07] MEDS: LEVOTHYROXINE 75 MCG TAB PO SCH (06:08)
[2017-06-07 07:38] VITALS: BP 136/73; PULSE 92; TEMP 36.8; O2SAT 93
[2017-06-07] MEDS: BOOST VANILLA PO SCH ×2 (08:00)
[2017-06-07] MEDS: CIPROFLOXACIN 250 MG TAB PO SCH (08:22)
[2017-06-07] MEDS: DOCUSATE SODIUM 100 MG CAP PO SCH (08:22)
[2017-06-07] MEDS: METOPROLOL SUCC 50MG EXT REL TAB PO SCH (08:23)
[2017-06-07] MEDS: CEPHALEXIN MONOHYDRATE 500 MG CAP PO SCH (08:23)
[2017-06-07] MEDS: CHOLECALCIFEROL 1000 INTER.UNIT TAB PO SCH (08:23)
[2017-06-07] MEDS: APIXABAN 2.5 MG TAB PO SCH (08:23)
[2017-06-07] MEDS ORDERED: LCTX PO (13:03)
[2017-06-07] MEDS ORDERED: KFL500 PO (13:03)
[2017-06-07] MEDS ORDERED: CIPR1TAB11 PO (13:03)
[2017-06-07] MEDS ORDERED: Boost PO (13:03)
--- NOTE | 2017-06-07 13:07 | Discharge Instructions ---
Discharge Instructions Date of Service Jun 07, 2017. Admission Reason for Admission: Unwitnessed Fall, Uti Discharge Discharge Diagnosis / Problem: unwitnessed fall, UTI Discharge Goals Goal(s): Decrease discomfort, Improve function Activity Recommendations Activity Level: Up Ad Cassy Therapies: Physical Therapy, Occupational Therapy . Additional Information Patient informed of condition: Yes Advance Directives: Yes DNR: Yes Level of Care: Skilled Communicable Disease: No Prognosis: Stable Uriarte Catheter: No Instructions / Follow-Up Instructions / Follow-Up FOLLOWUP WITH FAMILY DOCTOR IN ONE WEEK. CHANGING LASIX TO ONCE DAILY. PLEASE MONITOR FOR ANY VOLUME OVERLOAD OR WEIGHT OLGA OR DEHYDRATION. FOLLOW LAB: BMP IN ONE WEEK AND FOLLOW RESULTS [facility] FAMILY DOCTOR Current Hospital Diet Patient's current hospital diet: Low Sodium Diet (2gm Na) Discharge Diet Recommended Diet: AHA Diet (Heart Healthy), Low Sodium Diet (2gm Na) Pending Studies Studies pending at discharge: no Physician Orders On Transfer Special Precautions: FALL AND ASPIRATION PRECAUTIONS Vital Signs: EVERY 8HRS Additional Orders: Call your Primary Care doctor if any of the following symptoms or problems start or get worse: * Shortness of breath or difficulty breathing * Wake up at night short of breath * Chest pain * Cough * Swelling of your hands, feet, or legs * More fatigued or tired with your normal activity * Palpitations - sudden fast heart beats WEIGHT * Weigh yourself every morning after using the bathroom. * Use the same scale. * Wear the same amount of clothing. * Write your weight down on a chart. * Call your Primary Care doctor if you gain more than 2-3 pounds in 1-2 days. MEDICATIONS * Use this discharge instruction sheet for medication instructions. * Take your medications at the time your doctor ordered. * Do not skip a dose of your medicines. * If you miss a dose of medicine, take it as soon as possible, but DO NOT DOUBLE A DOSE. * Read your medicine information when you get home. * Know all of the side effects of your medicine. If in doubt, ask your pharmacist * Call your Primary Care doctor's office if you have any side effects. * Be sure all of your doctors know what medicine and herbs you take (including cold, flu, and herbal medicine). Take the following with you to your follow-up doctor appointments: * Weight Chart * Medication List * List of questions Do not drink excessive alcohol, beer or wine. Medical Emergencies . Who to Call and When: Medical Emergencies: If at any time you feel your situation is an emergency, please call 911 immediately. . Non-Emergent Contact Non-Emergency issues call your: Primary Care Provider . . "Provider Documentation" section prepared by Danny Patel. . Core Measure Problem Core Measures: None
[2017-06-07] MEDS ORDERED: FURO-85 PO (13:08)
--- NOTE | 2017-06-07 13:17 | Progress Note ---
Internal Med Progress Note Date of Service: Jun 07, 2017. Provider Documentation: SUBJECTIVE: Resting comfortably feeling better denies any sob no pain eating ok moved bowels yesterday afebrile ok for discharge today to snf OBJECTIVE: Vital Signs-as noted below Exam: General-alert and oriented. not in distress ENT-Normal hearing Neck-no neck masses Lungs-Cta b/l no wheezing or crackles Heart-S1 and S2 heard regular No murmurs Abdomen-Soft Bowel sounds present Non tender No distension Extremities-No edema No erythema Neuro-alert and awake moves extremities Lab data as noted below. ASSESSMENT & PLAN: This is an 87 yo F with paroxysmal A Fib, HTN, CHF, hypothyroidism and osteoporosis who presents with generalized weakness and confusion x 2 days after a fall at home. She is denying pain or UTI symptoms. She is tolerating PO. Wounds addressed by wound care nurse and patient denies pain in her arms or wrists. Persistent weakness and apathy towards food. Plan for [facility] today 1. UTI-Pseudomonas hannah-sensitive. Changing abx to Cipro per culture results.To complete the course. 2. Cellulitis R forearm-superficial redness, afebrile. Vancomycin switched to Keflex. Although high risk for MRSA, nasal swab is negative this admission, no evidence of purulent drainage. Blood cultures are negative and she continues to improve. Complete Keflex course. 3. Metabolic encephalopathy 2/2 UTI or other infection-resolved. 4. Mechanical fall without loss of consciousness-cardiac workup was negative. Per history does not appear to have lost consciousness, however, this is the second unwitnessed event in the last month. Eliquis restarted for stroke prophylaxis. discussed with Son the risks/benefits of this and advised to followup with PCP within 1-2 weeks post-discharge. Fell on her R arm and xrays not revealing any acute fractures. 5. Atrial fibrillation-Eliquis restarted, cont Toprol XL 6. HTN: controlled, cont metoprolol. 7. Osteoporosis-cont home vit D 8. Hypothyroidisim-TSH WNL, cont Synthroid. 9. Chronic diastolic heart failure-Lasix was held during her stay in the hospital as there was concern for clinical dehydration initially. Cut back Lasix dose from BID to once daily dose on discharge. Needs close followup for any volume overload or dehydration on discharge. Also BMP in one week to f/u with PCP/ . 10. Stage II [id number] by wound care y. Cont Aquacel and Optifoam. Needs outpatient wound care followup DVT Ppx: Eliquis Discharge to [facility] today Vital Signs: Date Time Temp Pulse Resp B/P (MAP) Pulse Ox O2 Delivery O2 Flow Rate FiO2 06/07/17 08:00 Room Air 06/07/17 07:38 36.8 92 16 136/73 (94) 93 Room Air 06/06/17 23:44 36.8 88 18 136/75 (95) 93 Room Air 06/06/17 23:25 Room Air 06/06/17 16:00 Room Air 06/06/17 15:24 36.8 103 16 121/79 (93) 94 Room Air
--- NOTE | 2017-06-07 13:22 | Discharge Summary ---
Discharge Summary Date of Service Jun 07, 2017. Discharge Summary Admission Date: Jun 02, 2017 at 12:12 Discharge Date: Jun 07, 2017 Discharge Disposition: half-way facility Principal Diagnosis: UNWITNESSED FALL UTI Secondary Diagnoses/Problems: (1) Atrial fibrillation Status: Chronic (2) CHF (congestive heart failure) Status: Chronic (3) HTN (hypertension) Status: Chronic (4) Hypothyroidism Status: Chronic (5) Paroxysmal atrial fibrillation Status: Chronic Procedures: RIGHT WRIST XRAY: 1. Soft tissue swelling with no clear radiographic evidence of acute fracture. If there is clinical concern for occult fracture consider short-term radiographic follow-up. 2. Osteopenia and mild arthritic change as above. CT HEAD: 1. Senescent changes as above with no hemorrhage, mass effect, or evidence of acute territorial ischemia by CT criteria. 2. Right-sided paranasal sinus disease as above. RIGHT FORE ARM XRAY: Osteopenia with no radiographic evidence of right forearm fracture. RIGHT ELBOW XRAY: Osteopenia with no radiographic evidence of right elbow fracture. CT CERVICAL SPINE: 1. No acute osseous injury of the cervical spine. 2. Multilevel degenerative changes. CT CHEST: 1. Dependent opacities greatest in the left lower lobe raises concern for aspiration versus extensive atelectasis. 2. Trace bilateral pleural effusions. 3. Moderate hiatal hernia. 4. Osteopenia with vertebral body height loss and system with an age-indeterminate compression deformity of L1. Multiple additional levels demonstrate posttreatment changes of kyphoplasty. 5. Left atrial enlargement. ECHO: Normal LV chamber size with mild concentric LVH. * Low normal LV systolic function with abnormal septal wall motion consistent with RV pressure/volume overload, otherwise, no segmental left ventricular wall motion abnormalities are noted, EF 50-55%. * The right ventricular cavity size is enlarged (proximal parasternal long axis right ventricular outflow tract dimension >3.3 cm). The right ventricular systolic function is normal as assessed by tricuspid annular plane systolic excursion (TAPSE) (normal >1.5 cm). * Aortic valve sclerosis moderate, without significant aortic valvular stenosis. * Calcified mitral apparatus. The mitral valve leaflets appear thickened, but open well. There is mild mitral regurgitation. There is no mitral valve stenosis. * Mild tricuspid regurgitation. * Severe biatrial enlargement. * No previous studies available for comparison. Medication Reconciliation New Medications: Ciprofloxacin Tab (Cipro) 250 Mg Tab 250 MG PO BID for 6 Days, TAB Furosemide (Lasix) 20 Mg Tab 20 MG PO DAILY, #30 TAB 1 Refill Lactobacillus Acidophilus (Lactinex) Tab 2 TAB PO BID for 10 Days, TAB Cephalexin Monohydrate (Cephalexin) 500 Mg Cap 500 MG PO BID for 3 Days, CAP [Boost] () 1 CAN LIQD 1 CAN PO BIDM for 30 Days Continued Medications: Apixaban (Eliquis) 2.5 Mg Tab 2.5 MG PO BID, TAB Cholecalciferol (Vitamin D3) 2,000 Unit Cap 2000 UNITS PO DAILY, CAP Docusate Sodium (Colace) 100 Mg Cap 100 MG PO BID, CAP Levothyroxine Sodium (Levothyroxine Sodium) 75 Mcg Tab 75 MCG PO DAILY, TAB Metoprolol Succinate (Metoprolol Succinate ER) 50 Mg Tabcr 50 MG PO DAILY Multiple Vitamins W/ Minerals (Therems M) 1 Tab Tab 1 TAB PO DAILY Discontinued Medications: Furosemide (Lasix) 20 Mg Tab 20 MG PO BID, TAB Admission Information HPI (per Admitting provider): This is an 87yo F with a PMH of paroxysmal A Fib, HTN, CHF, hypothyroidism and osteoporosis who presents with generalized weakness and confusion x 2 days. Patient lives in assisted living at [facility] in [place].Endorses feeling more tired that usual this week but otherwise in normal state of health until yesterday morning, when patient fell. She was sitting in a chair for a while and then stood up to get something. The next thing she remembers is lying on the floor next to her walker. Was unable to stand up but crawled over to her door and got the attention of a [facility] employee. Denies any lightheadedness, chest pain or SOB proceeding the fall. Does not know how she landed but noticed R arm pain with some abrasions on her forearm. Denies hitting head. Unsure if LOC. Per [id number], patient spent the rest of yesterday resting in her room. Had her food delivered to her and she did not eat. This morning, was found to be slightly confused (baseline mentation is A&Ox3) with generalized weakness, so was brought to the ER for further evaluation. Currently, patient endorses fatigue and decreased appetite. Denies confusion, lightheadedness, near-syncope, fever, chills, CP, SOB, abd pain, nausea, vomiting or focal neurological deficits. Denies urinary symptoms and says she has been having regular bowel movements. Has a history of A Fib and is on eliquis. Per family, this is patient's second unwitnessed fall in the past 2 months. Ambulates with a walker. Also noted to have a bruise on R cheek develop today. Ngeqryed-dl-jgv states it was not present yesterday and believes patient obtained bruise during transportation to hospital. Physical Exam (per Admitting): General Appearance: no apparent distress, + cachetic Head: normocephalic, atraumatic Eyes: normal inspection, PERRL, sclerae normal ENT: normal ENT inspection, hearing grossly normal, pharynx normal (dry mucous membranes ) Neck: supple, thyroid normal, trachea midline Respiratory/Chest: chest non-tender, normal breath sounds, no respiratory distress, no accessory muscle use, + rhonchi (in upper lung daigle bilaterally ) Cardiovascular: no murmur, normal peripheral pulses, + irregularly irregular Abdomen/GI: non tender, soft, no organomegaly Back: normal inspection Extremities/Musculoskelatal: normal inspection, no calf tenderness, no pedal edema Neurologic/Psych: no motor/sensory deficits, alert (oriented to person and place, not to time or situation), normal mood/affect, oriented x 3 Skin: normal color, + pertinent finding (Presence of 2 skin tears on R forearm with surrounding erythema. Healing wound on L ankle. Purple ecchymosis on R cheek. Non-tender.) Lymphatic: no adenopathy Hospital Course This is an 87 yo F with paroxysmal A Fib, HTN, CHF, hypothyroidism and osteoporosis who presents with generalized weakness and confusion x 2 days after a fall at home. She is denying pain or UTI symptoms. She is tolerating PO. Wounds addressed by wound care nurse and patient denies pain in her arms or wrists. Persistent weakness and apathy towards food. Plan for Heart side today 1. UTI-Pseudomonas hannah-sensitive. Changing abx to Cipro per culture results.To complete the course. 2. Cellulitis R forearm-superficial redness, afebrile. Vancomycin switched to Keflex. Although high risk for MRSA, nasal swab is negative this admission, no evidence of purulent drainage. Blood cultures are negative and she continues to improve. Complete Keflex course. 3. Metabolic encephalopathy 2/2 UTI or other infection-resolved. 4. Mechanical fall without loss of consciousness-cardiac workup was negative. Per history does not appear to have lost consciousness, however, this is the second unwitnessed event in the last month. Eliquis restarted for stroke prophylaxis. discussed with Son the risks/benefits of this and advised to followup with PCP within 1-2 weeks post-discharge. Fell on her R arm and xrays not revealing any acute fractures. 5. Atrial fibrillation-Eliquis restarted, cont Toprol XL 6. HTN: controlled, cont metoprolol. 7. Osteoporosis-cont home vit D 8. Hypothyroidisim-TSH WNL, cont Synthroid. 9. Chronic diastolic heart failure-Lasix was held during her stay in the hospital as there was concern for clinical dehydration initially. Cut back Lasix dose from BID to once daily dose on discharge. Needs close followup for any volume overload or dehydration on discharge. Also BMP in one week to f/u with PCP/ . 10. Stage II [id number] by wound care y. Cont Aquacel and Optifoam. Needs outpatient wound care followup DVT Ppx: Eliquis Discharge to [facility] today Total time spent on discharge = 40MINUTES This includes examination of the patient, discharge planning, medication reconciliation, and communication with other providers. Discharge Instructions Please take this sheet to every appointment for the next month Discharge Instructions Date of Service Jun 07, 2017. Admission Reason for Admission: Unwitnessed Fall, Uti Discharge Discharge Diagnosis / Problem: unwitnessed fall, UTI Discharge Goals Goal(s): Decrease discomfort, Improve function Activity Recommendations Activity Level: Up Ad Cassy Therapies: Physical Therapy, Occupational Therapy . Additional Information Patient informed of condition: Yes Advance Directives: Yes DNR: Yes Level of Care: Skilled Communicable Disease: No Prognosis: Stable Uriarte Catheter: No Instructions / Follow-Up Instructions / Follow-Up FOLLOWUP WITH FAMILY DOCTOR IN ONE WEEK. CHANGING LASIX TO ONCE DAILY. PLEASE MONITOR FOR ANY VOLUME OVERLOAD OR WEIGHT OLGA OR DEHYDRATION. FOLLOW LAB: BMP IN ONE WEEK AND FOLLOW RESULTS [facility] FAMILY DOCTOR Current Hospital Diet Patient's current hospital diet: Low Sodium Diet (2gm Na) Discharge Diet Recommended Diet: AHA Diet (Heart Healthy), Low Sodium Diet (2gm Na) Pending Studies Studies pending at discharge: no Physician Orders On Transfer Special Precautions: FALL AND ASPIRATION PRECAUTIONS Vital Signs: EVERY 8HRS Additional Orders: Call your Primary Care doctor if any of the following symptoms or problems start or get worse: * Shortness of breath or difficulty breathing * Wake up at night short of breath * Chest pain * Cough * Swelling of your hands, feet, or legs * More fatigued or tired with your normal activity * Palpitations - sudden fast heart beats WEIGHT * Weigh yourself every morning after using the bathroom. * Use the same scale. * Wear the same amount of clothing. * Write your weight down on a chart. * Call your Primary Care doctor if you gain more than 2-3 pounds in 1-2 days. MEDICATIONS * Use this discharge instruction sheet for medication instructions. * Take your medications at the time your doctor ordered. * Do not skip a dose of your medicines. * If you miss a dose of medicine, take it as soon as possible, but DO NOT DOUBLE A DOSE. * Read your medicine information when you get home. * Know all of the side effects of your medicine. If in doubt, ask your pharmacist * Call your Primary Care doctor's office if you have any side effects. * Be sure all of your doctors know what medicine and herbs you take (including cold, flu, and herbal medicine). Take the following with you to your follow-up doctor appointments: * Weight Chart * Medication List * List of questions Do not drink excessive alcohol, beer or wine. Medical Emergencies . Who to Call and When: Medical Emergencies: If at any time you feel your situation is an emergency, please call 911 immediately. . Non-Emergent Contact Non-Emergency issues call your: Primary Care Provider . . "Provider Documentation" section prepared by Danny Patel. . Core Measure Problem Core Measures: None
[2017-06-07 14:24] VITALS: BP 136/73; PULSE 92; TEMP 36.8; O2SAT 93
== END 2017-06-07 14:30 | disposition home or self-care (01) | DRG 602 ==
LOC: EDBD 08:53 → C.EDB 08:54 → C.2T 12:12 → ENRESERV 12:49 → C.MS4W 06-03 16:51
PROVIDERS: ADMIT Family Medicine; ATTEND Internal Medicine
DX: L03.113 Cellulitis of right upper limb (principal); G93.41 Metabolic encephalopathy; N39.0 Urinary tract infection, site not specified; E46 Unspecified protein-calorie malnutrition; R64 Cachexia; Z68.1 Body mass index [BMI] 19.9 or less, adult; I50.32 Chronic diastolic (congestive) heart failure; L97.329 Non-pressure chronic ulcer of left ankle with unspecified severity; B96.5 Pseudomonas (aeruginosa) (mallei) (pseudomallei) as the cause of diseases classified elsewhere; E86.0 Dehydration; R55 Syncope and collapse; S00.83XA Contusion of other part of head, initial encounter; S51.811A Laceration without foreign body of right forearm, initial encounter; Z23 Encounter for immunization; Z66 Do not resuscitate; I48.0 Paroxysmal atrial fibrillation; I11.0 Hypertensive heart disease with heart failure; E03.9 Hypothyroidism, unspecified; M81.0 Age-related osteoporosis without current pathological fracture; Z79.899 Other long term (current) drug therapy; Z79.01 Long term (current) use of anticoagulants; Z91.81 History of falling; W19.XXXA Unspecified fall, initial encounter; Y92.129 Unspecified place in nursing home as the place of occurrence of the external cause; Y99.8 Other external cause status

== ENCOUNTER → 2017-06-14 | Outpatient (CLI) | payer OTHER ==
[~2017-06-14] MED LIST: Boost PO; CHOL2000 PO; CIPR1TAB11 PO; DOCU-94 PO; ELQ25 PO; FURO-85 PO; KFL500 PO; LCTX PO; LEVO75TA5 PO; MULTTAB63 PO; TPRSR/50 PO
[2017-06-14 13:00] LABS: BLOOD UREA NITROGEN 17 mg/dl (7-18); BUN/CREATININE RATIO 24.6 (10-20); CALCIUM 8.6 mg/dl (8.5-10.1); CARBON DIOXIDE 29 mmol/L (21-32); CHLORIDE 102 mmol/L (98-107); CREATININE 0.68 mg/dl (0.60-1.20); GLUCOSE 92 mg/dl (70-99); POTASSIUM 4.3 mmol/L (3.5-5.1); SODIUM 135 mmol/L (136-145)
== END | disposition home or self-care (01) ==
LOC: C.LABPVFM 10:21
PROVIDERS: ATTEND Internal Medicine
DX: I50.9 Heart failure, unspecified (principal); Z79.01 Long term (current) use of anticoagulants

== ENCOUNTER 2017-06-29 09:19 | Inpatient (IN) | payer OTHER ==
[~2017-06-29] VITALS: Ht 170.2 cm; Wt 52.1 kg
[~2017-06-29 09:19] MED LIST changes: -CIPR1TAB11 PO; -LCTX PO
--- NOTE | 2017-06-29 09:22 | EMERGENCY ROOM VISIT NOTE ---
History Report prepared by Jada: Vishal Chapman Under the Supervision of: Dr. Riky Lema D.O. First contact with patient: 09:21 Stated Complaint: NOT EATING AND DRINKING History of Present Illness The patient is an 88 year old who presents to the Emergency Room via EMS from [facility] with worsening weakness the past few days. Per EMS, the patient is on hospice, and the patient's just . The patient is noted to not have been eating or drinking much the past few days. The patient has been on oxygen since the hospice, and was noted to be on the high 80's prior to arrival, and EMS bumped up her oxygen, and now the patient is in the low 90's, and was noted to be responding a bit better. History limited secondary to patient's lack of responsiveness. Source of History: EMS History Limited By: other (lack of responsiveness) Onset: Past few days Position: other (global - weakness) Symptom Intensity: oxygen saturation of 80s PROGRESS DEVELOPER Quality: other (not eating or drinking much) Timing: worsening Modifying Factors (Relieving): oxygen Associated Symptoms: + SOB Note: Associated symptoms: Patient noted to be responding a bit better after having oxygen increased. Review of Systems ROS limited secondary to patient's lack of responsiveness. Past Medical & Surgical Medical Problems: (1) Atrial fibrillation (2) CHF (congestive heart failure) (3) Failure to thrive (4) HTN (hypertension) (5) Hypothyroidism (6) Paroxysmal atrial fibrillation (7) PNA (pneumonia) Family History Family history omitted secondary to patient's advanced age. Social History Smoking Status: Never Smoker Marital Status: Housing Status: intermediate Occupation Status: retired Current/Historical Medications Scheduled Morphine Sulfate (Morphine Sulfate), 0.25 ML PO Q8 Allergies Coded Allergies: No Known Allergies (Unverified , 06/29/17) Physical Exam Vital Signs Date Time Temp Pulse Resp B/P (MAP) Pulse Ox O2 Delivery O2 Flow Rate FiO2 06/29/17 14:32 120 24 96/54 97 Non-Rebreather 12.0 06/29/17 14:15 36.7 125 20 165/136 98 Non-Rebreather 12.0 06/29/17 14:04 90 Non-Rebreather 12.0 06/29/17 13:09 149 20 92/56 90 Non-Rebreather 12.0 06/29/17 13:02 137 06/29/17 13:00 36.7 142 19 116/78 87 Non-Rebreather 10.0 06/29/17 12:00 36.7 142 19 116/78 87 Non-Rebreather 10.0 06/29/17 11:24 149 19 111/74 87 Non-Rebreather 10.0 06/29/17 10:43 36.7 06/29/17 10:25 146 26 135/81 91 Non-Rebreather 15.0 06/29/17 10:03 90 Non-Rebreather 15.0 06/29/17 09:35 134 22 137/67 90 Non-Rebreather 15.0 06/29/17 09:31 91 Non-Rebreather 15.0 06/29/17 09:29 146 Physical Exam GENERAL: Patient is listless, slow to respond to questioning. Does not appear to answer appropriately. EYES: Pupils were constricted and minimally reactive to light bilaterally. Bilateral conjunctival injection noted. EARS, NOSE, MOUTH AND THROAT: The nose is without any evidence of any deformity. Mucous membranes are dry tongue is midline NECK: The neck is nontender and supple. RESPIRATORY: Lung sounds were diminished throughout. There was very shallow respirations noted. CARDIOVASCULAR: Heart sounds were tachycardic and irregular. No definite murmur noted to auscultation. GASTROINTESTINAL: The abdomen is soft. Bowel sounds are present in all quadrants. Abdomen is nontender MUSCULOSKELETAL/EXTREMITIES: There is no evidence of gross deformity full range of motion is noted in the hips and shoulders SKIN: Skin was cool and dry. There was no significant pedal edema noted. NEUROLOGIC: Patient does not answer questions at this time. Not able to assess orientation at this time. Strength was diminished but symmetric. Medical Decision & Procedures ER Provider Diagnostic Interpretation: X-ray results as stated below per interpretation by me and the radiologist. CHEST ONE VIEW PORTABLE CLINICAL HISTORY: Sepsis dyspnea COMPARISON STUDY: 06/02/2017 FINDINGS: Interval development of a parenchymal infiltrate medial aspect left base. Trace pleural fluid left lateral gastric angle. Lungs otherwise appear clear. Left suprahilar nodularity is stable. Mild stable cardiomegaly. Prior vertebroplasty is unchanged. IMPRESSION: Infiltrate left base. The above report was generated using voice recognition software. It may contain grammatical, syntax or spelling errors. Electronically signed by: Freddie Mcleod M.D. 06/29/2017 9:53 AM Dictated Date/Time: 06/29/2017 9:53 AM Laboratory Results 06/29/17 09:50 Red Blood Count 4.38, Mean Corpuscular Volume 102.5, Mean Corpuscular Hemoglobin 34.7, Mean Corpuscular Hemoglobin Concent 33.9, Mean Platelet Volume 11.4, Neutrophils (%) (Auto) 80.9, Lymphocytes (%) (Auto) 7.6, Monocytes (%) ( Auto) 11.1, Eosinophils (%) (Auto) 0.0, Basophils (%) (Auto) 0.1, Neutrophils # (Auto) 11.26, Lymphocytes # (Auto) 1.06, Monocytes # (Auto) 1.54, Eosinophils # (Auto) 0.00, Basophils # (Auto) 0.01 06/29/17 09:50 Test 06/29/17 09:50 06/29/17 10:20 White Blood Count 13.91 K/uL (4.8-10.8) Red Blood Count 4.38 M/uL (4.2-5.4) Hemoglobin 15.2 g/dL (12.0-16.0) Hematocrit 44.9 % (37-47) Mean Corpuscular Volume 102.5 fL (80-100) Mean Corpuscular Hemoglobin 34.7 pg (25-34) Mean Corpuscular Hemoglobin Concent 33.9 g/dl (32-36) Platelet Count 355 K/uL (130-400) Mean Platelet Volume 11.4 fL (7.4-10.4) Neutrophils (%) (Auto) 80.9 % Lymphocytes (%) (Auto) 7.6 % Monocytes (%) (Auto) 11.1 % Eosinophils (%) (Auto) 0.0 % Basophils (%) (Auto) 0.1 % Neutrophils # (Auto) 11.26 K/uL (1.4-6.5) Lymphocytes # (Auto) 1.06 K/uL (1.2-3.4) Monocytes # (Auto) 1.54 K/uL (0.11-0.59) Eosinophils # (Auto) 0.00 K/uL (0-0.5) Basophils # (Auto) 0.01 K/uL (0-0.2) RDW Standard Deviation 62.7 fL (36.4-46.3) RDW Coefficient of Variation 16.8 % (11.5-14.5) Immature Granulocyte % (Auto) 0.3 % Immature Granulocyte # (Auto) 0.04 K/uL (0.00-0.02) Nucleated RBC Absolute Count (auto) 0.02 K/uL (0-0) Nucleated Red Blood Cells % 0.2 % Erythrocyte Sedimentation Rate 46 mm/hr (0-21) Prothrombin Time 11.8 SECONDS (9.0-12.0) Prothromb Time International Ratio 1.1 (0.9-1.1) Activated Partial Thromboplast Time 32.0 SECONDS (21.0-31.0) Partial Thromboplastin Ratio 1.2 Venous Blood pH 7.35 (7.36-7.41) Venous Blood Partial Pressure CO2 52 mmHg (38.0-50.0) Venous Blood Partial Pressure O2 68 mmHg Venous Blood HCO3 28 mmol/L Venous Blood Oxygen Saturation 92.1 % Venous Blood Base Excess 1.3 mEq/L Anion Gap 5.0 mmol/L (3-11) Estimated GFR () 34.0 Estimated GFR (Non- 29.4 BUN/Creatinine Ratio 41.5 (10-20) Calcium Level 9.8 mg/dl (8.5-10.1) Phosphorus Level 4.6 mg/dl (2.5-4.9) Magnesium Level 2.9 mg/dl (1.8-2.4) Total Bilirubin 1.7 mg/dl (0.2-1) Aspartate Amino Transf (AST/SGOT) 72 U/L (15-37) Alanine Aminotransferase (ALT/SGPT) 84 U/L (12-78) Alkaline Phosphatase 195 U/L (45-117) Total Creatine Kinase 468 U/L (26-192) Creatine Kinase MB 3.3 ng/ml (0.5-3.6) Creatine Kinase MB Ratio 0.7 (0-3.0) Troponin I 0.051 ng/ml (0-0.045) C-Reactive Protein 17.30 mg/dl (0-0.29) Pro-B-Type Natriuretic Peptide 4917 pg/ml (0-1800) Total Protein 7.7 gm/dl (6.4-8.2) Albumin 3.3 gm/dl (3.4-5.0) Globulin 4.4 gm/dl (2.5-4.0) Albumin/Globulin Ratio 0.7 (0.9-2) Lipase 108 U/L (73-393) Urine Color DK YELLOW Urine Appearance CLEAR (CLEAR) Urine pH 5.0 (4.5-7.5) Urine Specific [place] 1.022 (1.000-1.030) Urine Protein TRACE (NEG) Urine Glucose (UA) NEG (NEG) Urine Ketones NEG (NEG) Urine Occult Blood NEG (NEG) Urine Nitrite NEG (NEG) Urine Bilirubin NEG (NEG) Urine Urobilinogen NEG (NEG) Urine Leukocyte Esterase TRACE (NEG) Urine WBC (Auto) 1-5 /hpf (0-5) Urine RBC (Auto) 5-10 /hpf (0-4) Urine Hyaline Casts (Auto) 5-10 /lpf (0-5) Urine Epithelial Cells (Auto) 5-10 /lpf (0-5) Urine Bacteria (Auto) NEG (NEG) Laboratory results per my review. Medications Administered Medications (Trade) Dose Ordered Sig/Cherelle Route Start Time Stop Time Status Last Admin Dose Admin Sodium Chloride 1,000 ml @ 999 mls/hr Q1H1M STAT IV 06/29/17 10:04 06/29/17 11:04 DC 06/29/17 10:36 999 MLS/HR Levofloxacin (Levaquin / D5W) 750 mg NOW STAT IV 06/29/17 10:04 06/29/17 10:05 DC 06/29/17 10:36 750 MG Sodium Chloride 500 ml @ 999 mls/hr Q31M STAT IV 06/29/17 13:13 06/29/17 13:43 DC 06/29/17 13:29 999 MLS/HR ECG Indication: weakness Rate (beats per minute): 149 Rhythm: atrial fibrillation Findings: LBBB, other (No PVCs) Comparison ECG Date: increased rate otherwise no significant change from ED Course 0922: The patient was evaluated in room B7. A limited history and physical examination were performed. 0948: I talked to the patient's [id number]. 1004: Ordered Levaquin / D5W 750 mg IV, NSS 1000 ml @ 999 mls/hr IV. 1046: Ordered Magnesium Sulfate 2 gm IV. 1127: I reevaluated the patient and she is resting. I talked to her family. 1222: I reevaluated the patient and talked to the family. 1305: Upon reevaluation, the patient is resting comfortably. I discussed results and treatment plan with the patient's family. They verbalize agreement and understanding. The patient will be evaluated for further management and care. 1313: Ordered NSS 500 ml @ 999 mls/hr IV. 1320: I discussed the patient with Charmaine Carson. She will evaluate the patient for further treatment. Medical Decision Differential diagnosis: Etiologies such as metabolic, infection, hypoglycemia, electrolyte abnormalities , cardiac sources, intracerebral event, toxicologic, neurologic, as well as others were entertained. Nursing notes reviewed. The patient is an 87-year-old female who presented to the emergency department for an evaluation of generalized illness. The patient was recently placed on hospice but the family was very concerned about her rapid decline recently and asked that she be sent to the emergency department from the intermediate for a formal evaluation. The patient appeared to be in rapid atrial fibrillation and was hypotensive. She was treated with IV fluids and she also appears to have signs of infection. The patient was treated with IV antibiotics. I discussed patient's laboratory radiographic studies with her family. I do feel that overall her prognosis is not good and likely she does require hospice discussed her case with pallor medicine. They were able to evaluate the patient in the emergency department. At this time the patient will be evaluated by the hospitalist for further inpatient management with a consultation to pallor medicine to the side with the best outcome would be for this patient. At this time she's had all of her outpatient medications stop so she could be on hospice. She may require some rate control of her atrial fibrillation but at this time her blood pressure was too low. Medication Reconcilliation Current Medication List: was personally reviewed by me Blood Pressure Screening Patient's blood pressure: Normal blood pressure Consults Time Called: 1315 Consulting Physician: Charmaine Carson Returned Call: 1320 I discussed the patient with Charmaine Carson. She will evaluate the patient for further treatment. Impression Primary Impression: Altered mental status Additional Impressions: PNA (pneumonia) Atrial fibrillation with RVR Dehydration Scribe Attestation The scribe's documentation has been prepared under my direction and personally reviewed by me in its entirety. I confirm that the note above accurately reflects all work, treatment, procedures, and medical decision making performed by me. Departure Information Dispostion Being Evaluated By Hospitalist Referrals ÁLVARO CASTILLO (PCP) Problem Qualifiers Primary Impression: Altered mental status Altered mental status type: unspecified Qualified Codes: R41.82 - Altered mental status, unspecified Additional Impressions: PNA (pneumonia) Pneumonia type: due to unspecified organism Laterality: unspecified laterality Lung location: unspecified part of lung Qualified Codes: J18.9 - Pneumonia, unspecified organism
--- NOTE | 2017-06-29 09:55 | DIAGNOSTIC IMAGING REPORT ---
CHEST ONE VIEW PORTABLE CLINICAL HISTORY: Sepsis dyspnea COMPARISON STUDY: 06/02/2017 FINDINGS: Interval development of a parenchymal infiltrate medial aspect left base. Trace pleural fluid left lateral gastric angle. Lungs otherwise appear clear. Left suprahilar nodularity is stable. Mild stable cardiomegaly. Prior vertebroplasty is unchanged. IMPRESSION: Infiltrate left base. The above report was generated using voice recognition software. It may contain grammatical, syntax or spelling errors. Electronically signed by: Freddie Mcleod M.D. 06/29/2017 9:53 AM Dictated Date/Time: 06/29/2017 9:53 AM
[2017-06-29] MEDS ORDERED: LEVAQUIN 750MG / 150ML D5W IV STA (10:04)
[2017-06-29] MEDS ORDERED: SODIUM CHLORIDE 0.9% 1000ML 1,000 ML IV STA (10:04)
[2017-06-29 10:22] LABS: BASO % 0.1 %; BASO ABS # 0.01 K/uL (0-0.2); HEMATOCRIT 44.9 % (37-47); HEMOGLOBIN 15.2 g/dL (12.0-16.0); IG# 0.04 K/uL (0.00-0.02); LYMPH % 7.6 %; LYMPH ABS # 1.06 K/uL (1.2-3.4); MEAN CELL VOLUME 102.5 fL (80-100); MEAN CORPUSCULAR HEMOGLOBIN 34.7 pg (25-34); MEAN CORPUSCULAR HGB CONC 33.9 g/dl (32-36); MEAN PLATELET VOLUME 11.4 fL (7.4-10.4); MONO % 11.1 %; MONO ABS # 1.54 K/uL (0.11-0.59); NEUT % 80.9 %; NEUT ABS # 11.26 K/uL (1.4-6.5); NUCLEATED RED BLOOD CELL ABS 0.02 K/uL (0-0); PLATELET COUNT 355 K/uL (130-400); RED CELL DISTRIBUTION WIDTH CV 16.8 % (11.5-14.5); RED CELL DISTRIBUTION WIDTH SD 62.7 fL (36.4-46.3); WHITE BLOOD COUNT 13.91 K/uL (4.8-10.8)
[2017-06-29 10:31] LABS: INR 1.1 (0.9-1.1)
[2017-06-29 10:35] LABS: ALBUMIN 3.3 gm/dl (3.4-5.0); ALT/SGPT 84 U/L (12-78); AST/SGOT 72 U/L (15-37); BLOOD UREA NITROGEN 65 mg/dl (7-18); CALCIUM 9.8 mg/dl (8.5-10.1); CARBON DIOXIDE 30 mmol/L (21-32); CREATININE 1.56 mg/dl (0.60-1.20); GLUCOSE 139 mg/dl (70-99); LIPASE 108 U/L (73-393); SODIUM 142 mmol/L (136-145)
[2017-06-29] MEDS ORDERED: MRPL PO (10:39)
[2017-06-29 10:40] LABS: ALKALINE PHOSPHATASE 195 U/L (45-117); CKMB 3.3 ng/ml (0.5-3.6); PHOSPHORUS 4.6 mg/dl (2.5-4.9); TOTAL PROTEIN 7.7 gm/dl (6.4-8.2)
[2017-06-29] MEDS ORDERED: MAGNESIUM SULFATE 1GM / D5W 1 GM BAG IV STA (10:46)
[2017-06-29] MEDS ORDERED: SODIUM CHLORIDE 0.9% 500ML 500 ML IV STA (13:13)
[2017-06-29 14:04] VITALS: O2SAT 90; Ht 170.2 cm; Wt 52.1 kg
--- NOTE | 2017-06-29 14:36 | Palliative Care Consultation ---
Consultation Date of Consultation: Jun 29, 2017. Requesting Physician: Dr. Lema Attending Physician: Dr. Lema Reason for Consultation: Goals of care History of Present Illness This 87 year old female patient with PMH Afib, htn, CHF with EF 50-55% and others listed below, presented to the hospital with c/o weakness and poor PO intake as reported by the family. Palliative care was asked to see this patient and her family in the ED today as she was on hospice prior to arrival and there are some questions of goals of care. I met with the patient's [id number], Anna, son, Hilario, and spoke with another son, Gustavo, on the phone. Dr. Lema was present in patient's room and gave medical update and test results to the family. I stayed and spoke with family for an extended period of time. They gave me the following series of events. This patient was recently admitted to the hospital from June 02- with UTI. She was discharged back to [facility] where she resides. Patient has reportedly been on a steady decline over some time- she is quite frail, doesn't eat or drink much. After discharge, patient was placed on hospice care by her local family (Hilario and Anna) for malnutrition/failure to thrive/general terminal illness. Patient 's other son, Gustavo, who lives in [place] has some great concerns about patient being on hospice care as he is uncertain of her terminal diagnosis. Per record, he called Dr. Prescott two days ago and was inquiring about patient's workup while she was admitted here a couple weeks ago. Dr. Prescott answered his questions to his satisfaction. Gustavo's concern is that he does not understand how the patient has declined so quickly and believes that her depression is driving patient to give up. However, the local family states they've been seeing this decline for quite a while and believe patient is truly at the end of life. Patient voiced to Hilario and Anna many times that she DID NOT want to be in the hospital and just wanted to be made comfortable. Her living will, which I reviewed myself, also states that in and end-stage condition she would not want any life-prolonging measures (copy is in computer from May's admission). After lengthy conversation, the family all came to the same consensus: try IVF and abx for next 24-48 hours and wait for improvement. If patient improves and is able to communicate her wishes, we will hold further conversation. If she does not improve and/or declines, she will be made comfortable to allow natural . All family was in agreement that they do not want her to be in pain, but would like smallest amount of medication given as possible. Past Medical/Surgical History Medical History: Afib Htn CHF, EF 50-55% 06/02/17 Osteoporosis Hypothyroidism Social History Smoking Status: Unknown if Ever Smoked History of Alcohol Use: No Marital Status: Housing Status: assisted living Occupation Status: retired Review of Systems unable to obtain ROS due to patient condition Allergies Coded Allergies: No Known Allergies (Unverified , 06/29/17) Physical Exam Date Time Temp Pulse Resp B/P (MAP) Pulse Ox O2 Delivery O2 Flow Rate FiO2 06/29/17 11:24 149 19 111/74 87 Non-Rebreather 10.0 06/29/17 10:43 36.7 06/29/17 10:25 146 26 135/81 91 Non-Rebreather 15.0 06/29/17 10:03 90 Non-Rebreather 15.0 06/29/17 09:35 134 22 137/67 90 Non-Rebreather 15.0 06/29/17 09:31 91 Non-Rebreather 15.0 06/29/17 09:29 146 General Appearance: + cachetic, + thin ENT: hearing grossly normal Neck: supple, no JVD Respiratory: no respiratory distress, no accessory muscle use, + decreased breath sounds, + pertinent finding (patient unable to take deep breaths for assessment) Cardiovascular: no edema, + tachycardia, + irregularly irregular (afib with RVR per telemetry), + normal peripheral pulses Abdomen: normal bowel sounds, non tender, soft Musculoskeletal: pertinent finding (frail) Neurologic/Psychiatric: alert, normal mood/affect, oriented x 3 Skin: normal color Laboratory Results Last 24 Hours Test 06/29/17 09:50 06/29/17 10:20 White Blood Count 13.91 K/uL Red Blood Count 4.38 M/uL Hemoglobin 15.2 g/dL Hematocrit 44.9 % Mean Corpuscular Volume 102.5 fL Mean Corpuscular Hemoglobin 34.7 pg Mean Corpuscular Hemoglobin Concent 33.9 g/dl Platelet Count 355 K/uL Mean Platelet Volume 11.4 fL Neutrophils (%) (Auto) 80.9 % Lymphocytes (%) (Auto) 7.6 % Monocytes (%) (Auto) 11.1 % Eosinophils (%) (Auto) 0.0 % Basophils (%) (Auto) 0.1 % Neutrophils # (Auto) 11.26 K/uL Lymphocytes # (Auto) 1.06 K/uL Monocytes # (Auto) 1.54 K/uL Eosinophils # (Auto) 0.00 K/uL Basophils # (Auto) 0.01 K/uL RDW Standard Deviation 62.7 fL RDW Coefficient of Variation 16.8 % Immature Granulocyte % (Auto) 0.3 % Immature Granulocyte # (Auto) 0.04 K/uL Nucleated RBC Absolute Count (auto) 0.02 K/uL Nucleated Red Blood Cells % 0.2 % Erythrocyte Sedimentation Rate 46 mm/hr Prothrombin Time 11.8 SECONDS Prothromb Time International Ratio 1.1 Activated Partial Thromboplast Time 32.0 SECONDS Partial Thromboplastin Ratio 1.2 Venous Blood pH 7.35 Venous Blood Partial Pressure CO2 52 mmHg Venous Blood Partial Pressure O2 68 mmHg Venous Blood HCO3 28 mmol/L Venous Blood Oxygen Saturation 92.1 % Venous Blood Base Excess 1.3 mEq/L Sodium Level 142 mmol/L Potassium Level 5.0 mmol/L Chloride Level 107 mmol/L Carbon Dioxide Level 30 mmol/L Anion Gap 5.0 mmol/L Blood Urea Nitrogen 65 mg/dl Creatinine 1.56 mg/dl Estimated GFR () 34.0 Estimated GFR (Non- 29.4 BUN/Creatinine Ratio 41.5 Random Glucose 139 mg/dl Calcium Level 9.8 mg/dl Phosphorus Level 4.6 mg/dl Magnesium Level 2.9 mg/dl Total Bilirubin 1.7 mg/dl Aspartate Amino Transf (AST/SGOT) 72 U/L Alanine Aminotransferase (ALT/SGPT) 84 U/L Alkaline Phosphatase 195 U/L Total Creatine Kinase 468 U/L Creatine Kinase MB 3.3 ng/ml Creatine Kinase MB Ratio 0.7 Troponin I 0.051 ng/ml C-Reactive Protein 17.30 mg/dl Pro-B-Type Natriuretic Peptide 4917 pg/ml Total Protein 7.7 gm/dl Albumin 3.3 gm/dl Globulin 4.4 gm/dl Albumin/Globulin Ratio 0.7 Lipase 108 U/L Urine Color DK YELLOW Urine Appearance CLEAR Urine pH 5.0 Urine Specific [place] 1.022 Urine Protein TRACE Urine Glucose (UA) NEG Urine Ketones NEG Urine Occult Blood NEG Urine Nitrite NEG Urine Bilirubin NEG Urine Urobilinogen NEG Urine Leukocyte Esterase TRACE Urine WBC (Auto) 1-5 /hpf Urine RBC (Auto) 5-10 /hpf Urine Hyaline Casts (Auto) 5-10 /lpf Urine Epithelial Cells (Auto) 5-10 /lpf Urine Bacteria (Auto) NEG Assessment & Plan Palliative Performance Scale: 10 % Problem list: Weakness Lethargy/obtundation Poor PO intake Failure to thrive/malnutrition Abnormal UA Left base infiltrate per CXR report- pneumonia Elevated creatinine- likely dehydration Elevated troponin Elevated BNP with hx diastolic CHF with EF 50-55% in May 2017 Afib with RVR (hx of Afib) Aspiration risk Goals of care (Z51.5) Palliative care recs: discussed with patient's sons Kam and Hilario, daughter-in- law Anna, Dr. Lema, and Charmaine Torres PA-C. -Patient is DNR- no CPR, no intubation. -Treat with IVF and abx for next 24-48 hours and see if patient improves. -Family's goal would be for patient to regain consciousness enough to communicate her wishes in this situation or get back to her baseline. However, if patient does not improve and/or declines, they agree that they will want patient to be made comfort measures only and allow natural . -Family was in agreement that they do not want patient to be in pain, but Gustavo would like to "back off" on the morphine. I recommend starting with Roxanol 2.5mg PO/SL Q8h PRN pain or SOB. If this is not adequate, will need to readdress with family about increasing. -Gustavo noted that he would like patient's Eliquis restarted if patient wakes enough to take PO. He also mentioned wanting an antidepressant started too if she can take PO meds. -Aspiration risk. Family all agrees that they will honor patient's wishes/ living will in the she would NOT want a feeding tube. She will be NPO with stringent mouth care and moist swabs for now while she is lethargic/obtunded. Thank you kindly for this consult. I will follow as needed.
[2017-06-29] MEDS ORDERED: OXYCODONE HCL PO PRN (14:45)
--- NOTE | 2017-06-29 14:54 | History and Physical ---
History & Physical Date & Time of Service: Jun 29, 2017 at 14:40 Chief Complaint: Not Eating And Drinking Primary Care Physician: Catie Acosta History of Present Illness Source: patient, family (son and praksohe-ko-qcp at bedside), clinic records, hospital records This is an 87yo F with a PMH of paroxysmal A fib, HTN, CHF, hypothyroidism and osteoporosis who presents with worsening failure to thrive and generalized weakness. Patient resides at [facility] in [place] and was recently admitted to [facility] from June 02- for fall and was found to have a UTI growing pseudomonas as well as rate-controlled A Fib. Was discharged back to [facility]. History was obtained entirely from daughter in law and son at bedside since patient is unable to speak. Since discharge in May, patient' s health status has declined significantly. While formerly ambulatory by walker , patient now is wheelchair bound. Has had decreased PO intake of food and intermittently will agree to drink a Boost. Patient's , whose health had also been declining, was placed on Hospice near the end of May. Local family (Hilario and Anna) decided it to be appropriate to also place the patient on hospice 2/2 malnutrition and failure to thrive. on Jun 21 and patient has continued to decline. Has required O2 since initiation of hospice and was hypoxic in the high 80s prior to arrival. All medications have been stopped. Last reported food intake is from 5 days ago. Morphine dose was recently increased for adequate pain control. In the ED, patient is requiring 12L non-rebreather for O2 saturation over 90%. Was found to have an infiltrate of the left lower base on CXR and A Fib with RVR in the 140s. ROS limited 2/2 patient's lethargy and inability to communicate. Palliative care was asked to speak with the patient and family while in the ED to address some questions as to goals of care. Patient's son, Gustavo, who resides in [place], is concerned about the appropriateness of the patient being on hospice and wanted her to be evaluated at the hospital. Believes that underlying depression and increased dose of morphine is contributing to her decline. Hilario and Anna feel that the patient has previously made it clear that she does not want to be hospitalized and that her health decline has been a steady process. Per living will, patient has stated that she does not want any life-prolonging measures once she has an end-stage condition. After a clarifying discussion, the family decided to give IVF and antibiotics for treatment of PNA but to not seek treatment for A Fib. Agreed to decrease morphine dose but still aim for adequate pain control. Palliative care will follow and will reassess status in 24-48 hours to see if improved. Past Medical/Surgical History Medical Problems: (1) Atrial fibrillation Status: Chronic (2) CHF (congestive heart failure) Status: Chronic (3) HTN (hypertension) Status: Chronic (4) Hypothyroidism Status: Chronic (5) Paroxysmal atrial fibrillation Status: Chronic Social History Smoking Status: Never Smoker Smokeless Tobacco Use: No Alcohol Use: none Marital Status: Housing status: assisted living Occupational Status: retired Allergies Coded Allergies: No Known Allergies (Unverified , 06/29/17) Home Medications Scheduled Morphine Sulfate (Morphine Sulfate), 0.25 ML PO Q8 Review of Systems Unable to obtain ROS 2/ patient's status. Physical Exam Vital Signs Date Time Temp Pulse Resp B/P (MAP) Pulse Ox O2 Delivery O2 Flow Rate FiO2 06/29/17 14:32 120 24 96/54 97 Non-Rebreather 12.0 06/29/17 14:15 36.7 125 20 165/136 98 Non-Rebreather 12.0 06/29/17 14:04 90 Non-Rebreather 12.0 06/29/17 13:09 149 20 92/56 90 Non-Rebreather 12.0 06/29/17 13:02 137 06/29/17 13:00 36.7 142 19 116/78 87 Non-Rebreather 10.0 06/29/17 12:00 36.7 142 19 116/78 87 Non-Rebreather 10.0 06/29/17 11:24 149 19 111/74 87 Non-Rebreather 10.0 06/29/17 10:43 36.7 06/29/17 10:25 146 26 135/81 91 Non-Rebreather 15.0 06/29/17 10:03 90 Non-Rebreather 15.0 06/29/17 09:35 134 22 137/67 90 Non-Rebreather 15.0 06/29/17 09:31 91 Non-Rebreather 15.0 06/29/17 09:29 146 General Appearance: + cachetic, + pertinent finding (Chronically ill appearing , weak, eyes closed. ) Head: normocephalic, atraumatic Eyes: normal inspection, PERRL (constricted pupils, responsive but minimally ) , sclerae normal ENT: normal ENT inspection, hearing grossly normal, + pertinent finding (Non- rebreather mask on ) Neck: supple, trachea midline Respiratory/Chest: chest non-tender, no respiratory distress, no accessory muscle use, + decreased breath sounds Cardiovascular: no edema, + irregularly irregular Abdomen/GI: soft, no organomegaly Extremities/Musculoskelatal: normal inspection, no calf tenderness, no pedal edema Neurologic/Psych: + pertinent finding (Lethargic, able to follow some commands. Did not respond verbally. Unclear if patient is oriented or not. Generally weak.) Skin: normal color, + pertinent finding (Presence of purple ulcers on L heel ( with eschar), ankle and L& R buttocks ) Diagnostics Laboratory Results Results Past 24 Hours Test 06/29/17 09:50 06/29/17 10:20 Range/Units White Blood Count 13.91 4.8-10.8 K/uL Red Blood Count 4.38 4.2-5.4 M/uL Hemoglobin 15.2 12.0-16.0 g/dL Hematocrit 44.9 37-47 % Mean Corpuscular Volume 102.5 80-100 fL Mean Corpuscular Hemoglobin 34.7 25-34 pg Mean Corpuscular Hemoglobin Concent 33.9 32-36 g/dl Platelet Count 355 130-400 K/uL Mean Platelet Volume 11.4 7.4-10.4 fL Neutrophils (%) (Auto) 80.9 % Lymphocytes (%) (Auto) 7.6 % Monocytes (%) (Auto) 11.1 % Eosinophils (%) (Auto) 0.0 % Basophils (%) (Auto) 0.1 % Neutrophils # (Auto) 11.26 1.4-6.5 K/uL Lymphocytes # (Auto) 1.06 1.2-3.4 K/uL Monocytes # (Auto) 1.54 0.11-0.59 K/uL Eosinophils # (Auto) 0.00 0-0.5 K/uL Basophils # (Auto) 0.01 0-0.2 K/uL RDW Standard Deviation 62.7 36.4-46.3 fL RDW Coefficient of Variation 16.8 11.5-14.5 % Immature Granulocyte % (Auto) 0.3 % Immature Granulocyte # (Auto) 0.04 0.00-0.02 K/uL Nucleated RBC Absolute Count (auto) 0.02 0-0 K/uL Nucleated Red Blood Cells % 0.2 % Erythrocyte Sedimentation Rate 46 0-21 mm/hr Prothrombin Time 11.8 9.0-12.0 SECONDS Prothromb Time International Ratio 1.1 0.9-1.1 Activated Partial Thromboplast Time 32.0 21.0-31.0 SECONDS Partial Thromboplastin Ratio 1.2 Venous Blood pH 7.35 7.36-7.41 Venous Blood Partial Pressure CO2 52 38.0-50.0 mmHg Venous Blood Partial Pressure O2 68 mmHg Venous Blood HCO3 28 mmol/L Venous Blood Oxygen Saturation 92.1 % Venous Blood Base Excess 1.3 mEq/L Sodium Level 142 136-145 mmol/L Potassium Level 5.0 3.5-5.1 mmol/L Chloride Level 107 98-107 mmol/L Carbon Dioxide Level 30 21-32 mmol/L Anion Gap 5.0 3-11 mmol/L Blood Urea Nitrogen 65 7-18 mg/dl Creatinine 1.56 0.60-1.20 mg/dl Estimated GFR () 34.0 Estimated GFR (Non- 29.4 BUN/Creatinine Ratio 41.5 10-20 Random Glucose 139 70-99 mg/dl Calcium Level 9.8 8.5-10.1 mg/dl Phosphorus Level 4.6 2.5-4.9 mg/dl Magnesium Level 2.9 1.8-2.4 mg/dl Total Bilirubin 1.7 0.2-1 mg/dl Aspartate Amino Transf (AST/SGOT) 72 15-37 U/L Alanine Aminotransferase (ALT/SGPT) 84 12-78 U/L Alkaline Phosphatase 195 45-117 U/L Total Creatine Kinase 468 26-192 U/L Creatine Kinase MB 3.3 0.5-3.6 ng/ml Creatine Kinase MB Ratio 0.7 0-3.0 Troponin I 0.051 0-0.045 ng/ml C-Reactive Protein 17.30 0-0.29 mg/dl Pro-B-Type Natriuretic Peptide 4917 0-1800 pg/ml Total Protein 7.7 6.4-8.2 gm/dl Albumin 3.3 3.4-5.0 gm/dl Globulin 4.4 2.5-4.0 gm/dl Albumin/Globulin Ratio 0.7 0.9-2 Lipase 108 73-393 U/L Urine Color DK YELLOW Urine Appearance CLEAR CLEAR Urine pH 5.0 4.5-7.5 Urine Specific [place] 1.022 1.000-1.030 Urine Protein TRACE NEG Urine Glucose (UA) NEG NEG Urine Ketones NEG NEG Urine Occult Blood NEG NEG Urine Nitrite NEG NEG Urine Bilirubin NEG NEG Urine Urobilinogen NEG NEG Urine Leukocyte Esterase TRACE NEG Urine WBC (Auto) 1-5 0-5 /hpf Urine RBC (Auto) 5-10 0-4 /hpf Urine Hyaline Casts (Auto) 5-10 0-5 /lpf Urine Epithelial Cells (Auto) 5-10 0-5 /lpf Urine Bacteria (Auto) NEG NEG Microbiology Results 06/29/17 Blood Culture, Received Pending 06/29/17 Blood Culture, Received Pending Diagnostic Radiology CXR: IMPRESSION: Infiltrate left base. EKG A Fib with RVR at 149 bpm LBBB (previously noted) Impression Assessment and Plan This is an 87yo F with a PMH of paroxysmal A fib, HTN, CHF, hypothyroidism and osteoporosis who presents with worsening failure to thrive and generalized weakness. Failure to thrive, weakness, lethargy : -Give IVF and IV abx for 24-48 hrs and see if patient's condition improves -Per family's discussion with palliative, keeping the patient comfortable is the primary goal -If no improvement is noted and patient is unable to better communicate her wishes, the plan is to make patient comfort measures only -Per palliative care recommendation, pain control with Roxanol 2.5mg Q8 PRN to start. May increase frequency to Q4 if pain is not adequately controlled. -Hold PO meds due to aspiration risk -NPO with mouth care, moist swabs -Supplemental O2 PNA: -LLL infiltrate on CXR -Zosyn for empiric coverage -Monitor lab work -Supplemental O2 A Fib with RVR: -Family does not desire rate control or anticoagulation at this time Elevated troponin: -Likely demand ischemia 2/2 dehydration, hypoxia -Family not interested in further intervention, such as anticoagulation, at this time BLAKE: -Cr elevated to 1.56 -Baseline ~0.9 -Due to poor PO intake for 5 days -Gentle IVF resuscitation DVT Ppx: SCDs Code status: DNR PCP: Andrea Dispo: Admitted to [facility]. Discharge planning ordered. Palliative care to continue following closely. Hilario (son) and [id number] (Anna) desire to be contacted immediately if patient declines. Hilario: [phone] Anna: [phone] Patient seen in collaboration with Dr. Strauss. Please see addendum. Attending Note: Patient is a 87 yr female with multiple comorbidities presents with generalized weakness, failure to thrive, poor appetite. In ED she was found to be in Afib with RVR. on Chronic anticoagulation (Eliquis). While in ED patient was found to be hypoxic and CXR suggestive of Pneumonia. Discussed with family in detail about patient's condition. Patient was on Hospice since May. Family prefers patient to be treated for infection and prefers no aggressive management. Patient has high risk of aspiration and so could not administer PO medications. Family prefers patient to be restarted on Eliquis if patient can take PO meds but currently expressed no interest in anticoagulation with heparin. Physical Exam: General Appearance:Non verbal, Thin, frail Head: normocephalic, Atraumatic Eyes: normal inspection, PERRL Neck: supple, Trachea midline Respiratory/Chest: Decreased breath sounds, CTA Cardiovascular: Irregularly irregular, No murmur Abdomen/GI:Soft, Non tender, Bowel sounds present Extremities/Musculoskelatal:normal inspection, no edema Neurologic/Psych:Could not perform complete neuro exam, grossly no focal deficits Skin:normal color,warm Assessment and Plan: HCAP: cxr:Left base infiltrate Start Broad spectrum IV Abx Blood Cx IV fluids High risk for aspiration Speech and swallow eval NPO for now Afib RVR: Family prefers no aggressive management Restart PO meds as able BLAKE IV fluids Avoid Nephrotoxic meds Failure to Thrive Very poor prognosis Palliative care on board Family likely to make patient comfort measures only if no improvement in 24-48 hours. Chronic diastolic heart failure Hold lasix for now as clinically dehydrated I personally reviewed the record. Patient is interviewed and examined at bedside. Patient's care is coordinated with Charmaine Torres PA-C. Please refer to the documentation above for details of patient's presentation and for discussion of other issues. Level of Care Med/Surg Advanced Directives Existing Living Will: Yes Existing Power of City Maintenance Manager: Yes Resuscitation Status DO NOT RESUSCITATE VTE Prophylaxis VTE Risk Assessment Done? Y/N: Yes Risk Level: High Given or contraindicated: SCD's Social Service Consult Lives in Personal Care
[2017-06-29] MEDS ORDERED: PIPERACILL/TAZOBAC CONSULT ACTIVE PRN (15:00)
[2017-06-29] MEDS ORDERED: PIPERACILL/TAZOBAC IV 3.375 GM in DEXTROSE 5% 100ML 100 ML IV ONE (16:00)
[2017-06-29 16:06] VITALS: BP 108/75; PULSE 100; TEMP 36.5; O2SAT 92
[2017-06-29] MEDS ORDERED: MoRPHine SULFATE 2.5 MG/0.125 ML UDP PO PRN (16:15)
[2017-06-29] MEDS: D5W AND 1/2NSS 1,000 ML IV SCH (16:26)
[2017-06-29] MEDS ORDERED: NURSING VERBAL MED ORDER ONE (18:45)
[2017-06-29] MEDS: MoRPHine SULFATE 2 MG/ML CARP IV PRN (21:07)
[2017-06-30] MEDS: PIPERACILL/TAZOBAC IV 3.375 GM in DEXTROSE 5% 100ML 100 ML IV SCH ×4 (01:24→23:59)
[2017-06-30] MEDS: MoRPHine SULFATE 2 MG/ML CARP IV PRN ×5 (01:34→17:58)
[2017-06-30 06:41] LABS: HEMATOCRIT 39.4 % (37-47); HEMOGLOBIN 13.4 g/dL (12.0-16.0); MEAN CELL VOLUME 103.1 fL (80-100); MEAN CORPUSCULAR HEMOGLOBIN 35.1 pg (25-34); MEAN PLATELET VOLUME 11.2 fL (7.4-10.4); NUCLEATED RED BLOOD CELL ABS 0.04 K/uL (0-0); PLATELET COUNT 270 K/uL (130-400); RED CELL DISTRIBUTION WIDTH CV 16.8 % (11.5-14.5); RED CELL DISTRIBUTION WIDTH SD 63.1 fL (36.4-46.3); WHITE BLOOD COUNT 10.66 K/uL (4.8-10.8)
[2017-06-30 07:17] LABS: CALCIUM 9.2 mg/dl (8.5-10.1); CREATININE 1.56 mg/dl (0.60-1.20); POTASSIUM 4.3 mmol/L (3.5-5.1)
--- NOTE | 2017-06-30 10:05 | Clinical Documentation Query ---
CLINICAL DOCUMENTATION QUERY QUERY 1 OF 5 An 87yo F with a PMH of paroxysmal A fib, HTN, CHF, hypothyroidism and osteoporosis who presents with worsening failure to thrive and generalized weakness. In your clinical opinion is this patient being managed for: ( x ) Type 2 NJ due to demand ischemia and hypoxia ( ) Not Agree ( ) Other explanation of clinical findings (Please Explain) ( ) Unable to determine (Please Define) ( ) Need to Discuss The medical record reflects the following clinical findings, treatment, and risk factors. Clinical Indicators: Troponin 0.051, SPO2 87% via NRB, EKG Afib w/RVR and LBBB Treatment: O2 via 15L NRB Risk Factors: Age, pneumonia, hypoxia, Afib, dehydration QUERY 2 OF 5 In your clinical opinion is this patient being managed for: (x ) Acute respiratory failure with hypoxia ( ) Not Agree ( ) Other explanation of clinical findings (Please Explain) ( ) Unable to determine (Please Define) ( ) Need to Discuss The medical record reflects the following clinical findings, treatment, and risk factors. Clinical Indicators: SPO2 87% via NRB, lethargic, altered mental status, pneumonia Treatment: O2 via 15L NRB, IV Piperacillin Risk Factors: Age, pneumonia, failure to thrive QUERY 3 OF 5 In your clinical opinion is this patient being managed for: ( x) Encephalopathy ( ) Not Agree ( ) Other explanation of clinical findings (Please Explain) ( ) Unable to determine (Please Define) ( ) Need to Discuss The medical record reflects the following clinical findings, treatment, and risk factors. Clinical Indicators: Altered mental status, lethargic, listless Treatment: IV hydration, O2 via 15L NRB Risk Factors: Age, failure to thrive, dehydration, hypoxia QUERY 4 OF 5 87 yo female with documented assessment of purple ulcerations to bilateral buttocks, LEFT heel and ankle ulcerations w/eschar to the LEFT heel. WOCN documented a deep tissue injury to the RIGHT heel bilateral buttocks, and an unstageable pressure ulcer to the RIGHT ankle. In your clinical opinion is this patient being managed for: x( ) Pressure ulcer of right and left buttock, unstageable ( x ) Pressure ulcer of right heel, unstageable ( x) Pressure ulcer of right ankle, unstageable ( x ) Pressure ulcer of left heel, unstageable (x ) Pressure ulcer of left ankle, unstageable ( ) Not Agree ( ) Other explanation of clinical findings (Please Explain) ( ) Unable to determine (Please Define) ( ) Need to Discuss The medical record reflects the following clinical findings, treatment, and risk factors. Clinical Indicators: As above Treatment: Optifoam, waffle boots, turn and reposition Risk Factors: Age, cachexia, failure to thrive, lethargic QUERY 5 OF 5 In your clinical opinion is this patient being managed for: ( x ) Severe protein-calorie malnutrition ( ) Not Agree ( ) Other explanation of clinical findings (Please Explain) ( ) Unable to determine (Please Define) ( ) Need to Discuss The medical record reflects the following clinical findings, treatment, and risk factors. Clinical Indicators: Cachexia, failure to thrive, BMI 18, lethargic Treatment: Boost shakes, I&O Risk Factors: Age, failure to thrive, BMI 18 Please clarify and document your clinical opinion in the progress notes and discharge summary. Terms such as "probable", "suspected", "likely", "questionable", "possible", or "still to be ruled out" are acceptable. IF IN AGREEMENT, YOU MUST DOCUMENT ABOVE DIAGNOSTIC STATEMENT IN DAILY PROGRESS NOTES AND DISCHARGE SUMMARY. This document is not part of the patient's record. Thank You, Maryanne Lucero RN [phone]
[2017-06-30] MEDS: D5W AND 1/2NSS 1,000 ML IV SCH (10:36)
[2017-06-30] MEDS ORDERED: ATROPINE SULFATE 1% OP SOLN 5 ML BTL SL PRN (13:00)
[2017-06-30] MEDS: SCOPOLAMINE 1.5 MG TDSY TD SCH (13:13)
--- NOTE | 2017-06-30 13:43 | Palliative Care Progress Note ---
Palliative Care Progress Note Date of Service Jun 30, 2017. Subjective Pt evaluation today including: conversation w/ patient (limited), conversation w/ family, physical exam, chart review, conversation w/ international travel consultant (Dr. Demarco) Pain: "yes" unable to elaborate PO Intake: no significant PO intake Voiding: stone catheter in place -First entered patient's room this morning at about 1010. Patient more awake, but restless and agitated in bed. Trying to sit up. Answered, "yes" to pain but was unable to elaborate. She received 2mg IV morphine as ordered and did settle some. -I went back to patient's room at 1100 when [id number] Anna was there. Anna stated that patient was again agitated and restless when she came in. She tried to give her some moist swabs- patient noted to cough. -Anna states that she was asked by Dr. Strauss last night if we were going to treat with IV heparin for the Afib since patient unable to take Eliquis. Anna was not comfortable making that decision so she sent her and brother-in- law (patient's sons/POAs) an email about it last evening. Son, Gustavo, is adamant that he wanted patient to be on IV heparin. I immediately paged Dr. Demarco and made her aware of this- she was going to call patient's son, Gustavo, to discuss with him. Review of Systems unable to obtain ROS due to patient condition Objective Vital Signs Date Time Temp Pulse Resp B/P (MAP) Pulse Ox O2 Delivery O2 Flow Rate FiO2 06/30/17 08:10 Non-Rebreather 15.0 06/30/17 00:30 Non-Rebreather 15.0 06/29/17 18:00 Non-Rebreather 15.0 06/29/17 16:06 36.5 100 18 108/75 (86) 92 Non-Rebreather 15.0 06/29/17 15:11 126 24 105/83 93 06/29/17 15:05 122 20 105/83 95 Non-Rebreather 12.0 06/29/17 14:32 120 24 96/54 97 Non-Rebreather 12.0 06/29/17 14:15 36.7 125 20 165/136 98 Non-Rebreather 12.0 06/29/17 14:04 90 Non-Rebreather 12.0 06/29/17 13:09 149 20 92/56 90 Non-Rebreather 12.0 06/29/17 13:02 137 06/29/17 13:00 36.7 142 19 116/78 87 Non-Rebreather 10.0 Physical Exam General Appearance: + mild distress (agitated and restless), + cachetic, + thin ENT: hearing grossly normal Neck: supple, no JVD Respiratory/Chest: no respiratory distress, no accessory muscle use, + decreased breath sounds, + pertinent finding (shallow respirations) Cardiovascular: no edema, + tachycardia, + irregularly irregular Abdomen: normal bowel sounds, soft Neurologic/Psychiatric: + disoriented, + pertinent finding (awake) Laboratory Results Last 24 Hours Test 06/30/17 06:22 White Blood Count 10.66 K/uL Red Blood Count 3.82 M/uL Hemoglobin 13.4 g/dL Hematocrit 39.4 % Mean Corpuscular Volume 103.1 fL Mean Corpuscular Hemoglobin 35.1 pg Mean Corpuscular Hemoglobin Concent 34.0 g/dl RDW Standard Deviation 63.1 fL RDW Coefficient of Variation 16.8 % Platelet Count 270 K/uL Mean Platelet Volume 11.2 fL Nucleated RBC Absolute Count (auto) 0.04 K/uL Nucleated Red Blood Cells % 0.4 % Sodium Level 145 mmol/L Potassium Level 4.3 mmol/L Chloride Level 111 mmol/L Carbon Dioxide Level 27 mmol/L Anion Gap 7.0 mmol/L Blood Urea Nitrogen 75 mg/dl Creatinine 1.56 mg/dl Est Creatinine Clear Calc Drug Dose 20.5 ml/min Estimated GFR () 34.0 Estimated GFR (Non- 29.4 BUN/Creatinine Ratio 48.2 Random Glucose 150 mg/dl Calcium Level 9.2 mg/dl Magnesium Level 2.9 mg/dl Procalcitonin 0.63 ng/ml Assessment and Plan Problem list: Weakness Lethargy/obtundation Poor PO intake Failure to thrive/malnutrition Abnormal UA Left base infiltrate per CXR report- pneumonia Elevated creatinine- likely dehydration Elevated troponin Elevated BNP with hx diastolic CHF with EF 50-55% in May 2017 Afib with RVR (hx of Afib) Aspiration risk Goals of care (Z51.5) Palliative care recs: -Patient remains on IVF and IV abx. Slightly more awake today but did appear uncomfortable and said she was having pain. -Still unable to take PO medications due to aspiration risk. Coughed just on water from sponge. -Dr. Demarco will talk to patient's son, Gustavo, about IV heparin. -Uncertain of how much patient is really going to progress, and according to her wishes outlined in living will she does not want any life-prolonging measures when she is end-stage, including IVF. -Morphine is ordered 1-2mg IV Q3h PRN pain or SOB at this time. Will see what her needs are in next 24 hours and determine her needs for comfort. -Still uncertain of discharge disposition. Thank you again for this consult. I will follow. Palliative Performance Scale: 10 % Continued [facility] stay due to: inadequate oral pain control, multiple IV medications needed Discharge planning: uncertain
[2017-06-30] MEDS ORDERED: NURSING VERBAL MED ORDER ONE (15:15)
[2017-06-30] MEDS ORDERED: MoRPHine SULFATE 2 MG/ML CARP IV PRN (15:45)
[2017-06-30] MEDS: CHECK SCOPOLAMINE PATCH PLACEMENT SCH (16:00)
--- NOTE | 2017-06-30 18:24 | Progress Note ---
Internal Med Progress Note Date of Service: Jun 30, 2017. Provider Documentation: SUBJECTIVE: pt seen at bedside in room 414 Son Celment and Daughter in Law Anna present pt remains lethargic , obtunded, keeps eyes closed during my conversation with Family -pt noted to move periodically , grimacing , moaning tears eyes, does not verbalize any pain or discomfort PRN IV morphine ordered discussed plan of care and prognosis with family members Had a long telephone conversation with Son Gustavo Miranda in [place] -Gustavo had quaries regarding what is the terminal diagnosis for his mother that requiring pt to decline so rapidly in past few weeks and now in Hospice care answered all his questions with best of my ability pt admitted to [facility] with respiratory failure , pneumonia , rapid afb RVR , acute renal failure had progressive decline in past 4-6 weeks , not eating or drinking for ~5 days as per nursing documents form [facility] pt was in Hospice care in [facility] due to her decline condition as per discussion with Palliative care and Family ( both sons and daughter in Law ) in the ER pt was treated with trial of IV fluids , IV Abx has not shown any improvement pt developed vol overload with wet cough , worsening of hypoxia , visibly dyspneic IV fluid was D/bernadette renal function shows no improvement with IV fluid challenge -suggestive of advanced renal failure with poor chance of recovery I shared all the labs, images , our assessments with Gustavo also the prior Labs form [facility] admission as he asked to compare and assess the decline in state Copies of all the labs given to POA Son Clement Miranda to share with his brother Gustavo I updated both of the brothers and daughter in law : their mother is at end stage clinical condition ,with multiorgan failure and due to her advanced stage and co morbidities -chance of recovery remains extremely poor Gustavo Miranda appears to Understand the clinical scenario, states that he will review the labs and images and get back with his Brother Clement for further discussion for her mothers care OBJECTIVE: Vital Signs-as noted below Exam: General-very frail , elderly female, cachetic , found to be lethargic on high flow 02 , grimacing occasionally due to pain /discomfort no visible respiratory distress noted Eyes-keeps eyes closed tightly ENT-very dry oral mucosa Lungs-diminished with crackles at base Heart-rapid , irregular Abdomen-Scaphoid , soft , Extremities-multiple ulcers on buttocks and heels and ankle , both of the feet are in Waffle boots Neuro-obtunded very lethargic , no visible response to voice , moving hand occasionally , grimacing in pain Lab data as noted below. ASSESSMENT & PLAN: ACUTE HYPOXEMIC RESPIRATORY FAILURE : due to left sided pneumonia /possible aspiration presented with hypoxia spo2 87 % on NRB , very lethargic, altered mental status -not responding to voice Xray shows Left basilar pneumonia started on empiric Abx with Zosyn no improvement of respiratory status after 24 hrs of Abx treatment SEPSIS DUE TO PNEUMONIA CONCERN FOR ASPIRATION : presented with Sepsis -lethargic, Afib rvr , hypoxia WBC 13 K C reactive protein 17.30 , Pro calcitonin elevated 0.63 , lactic acid 2.54 Cxray shows left basilar infiltrate , concern for aspiration -as has been obtunded for past few days was very lethargic with poor PO intake pt was on Hosp[facility] care ( [facility] ) at [facility] empiric Abx IV Zosyn ordered very poor prognosis with high mortality - given pt's Advanced age , multiple co -morbidities pt is ordered NPO for risk of Aspiration ACUTE RENAL FAILURE /BASELINE CKD STAGE 3 due to dehydration , poor PO intake ( pt had not been eating or drinking for the past ~5 days ) infection / sepsis Cr elevated to 1.56 -Baseline ~0.9 -ordered for IVF later discontinued as pt become more Hypoxic , increased secretion + bibasilar rales -suggestive of vol overload minimum urine out put after IV fluid challenge- POOR PROGNOSIS LETHARGY/OBTUNDATION /METABOLIC ENCEPHALOPATHY : due to hypoxia , pneumonia , sepsis baseline dementia MULTIPLE PRESSURE SORES wound care consulted -appreciate input low air loss mattress ordered RAPID AFIB RVR : due to sepsis , dehydration not a candidate for anticoagulation ELEVATED TROPONIN /TYPE 2 NSTEMI : due to demand ischemia /hypoxia /rapid afib SEVERE PROTEIN CALORIE MALNUTRITION : BMI 18 failure to thrive very poor appetite , stopped eating /drinking ~5 days back unable to have any PO intake at present due to altered mental status / obtundation terminal end stage DNR /DNI DISPOSITION pt was at [facility] on Hospice Care prognosis remains very poor Hospice /Palliative care appropriate multiple discussion with family members is continued as there been conflict of ideas As one of the Son Gustavo living out of State not agreeable with pt's terminal diagnosis and Hospice /Comfort care Palliative care been following the Pt and family multiple communications been made with both son -to agree upon a common ground for appropriate care for this unfortunate elderly female Per discussion with son Clement and Daughter in Law Anna Miranda -wants pt to return back to [facility] on hospice care for her final days will continue to have discussion with family members to provide support Vital Signs: Date Time Temp Pulse Resp B/P (MAP) Pulse Ox O2 Delivery O2 Flow Rate FiO2 07/02/17 16:15 95 Nasal Cannula 3.0 07/02/17 14:23 37.7 127 18 95 Nasal Cannula 07/02/17 08:05 Nasal Cannula 3.0 07/02/17 07:53 37.7 127 18 136/73 (94) 95 3.0 07/01/17 23:00 Nasal Cannula 3.0 Lab Results:
[2017-06-30] MEDS ORDERED: LORAZEPAM 2 MG/ML 1 ML VIAL IV PRN (18:45)
[2017-06-30] MEDS ORDERED: LORAZEPAM INJ 1 MG in SYRINGE 0.5 ML IV PRN (19:15)
[2017-07-01] MEDS: CHECK SCOPOLAMINE PATCH PLACEMENT SCH ×3 (00:03→15:57)
[2017-07-01] MEDS: PIPERACILL/TAZOBAC IV 3.375 GM in DEXTROSE 5% 100ML 100 ML IV SCH ×2 (08:07→15:56)
[2017-07-01] MEDS: MoRPHine SULFATE 2 MG/ML CARP IV PRN (13:02)
--- NOTE | 2017-07-01 13:31 | Palliative Care Progress Note ---
Palliative Care Progress Note Date of Service Jul 01, 2017. Subjective Pt evaluation today including: conversation w/ family ([id number] Anna) , physical exam, chart review, conversation w/ environmental consultant (Dr. Demarco), review of inpatient medication list Pain: no s/s pain at this time PO Intake: none Voiding: stone catheter in place (concentrated urine, oliguric) -Dr. Demarco had an extended conversation with patient's two sons and daughter-in -law last evening. Son, Gustavo, was phoned in from [place]. She explained patient' s condition and prognosis. Son, Gustavo, is still undecided on whether or not to continue IV abx and move to "comfort measures only." Hilario and Anna would still really like to get back to [facility] on hospice. Anna states that son, Gustavo, said he would send an email this evening with his decision. I updated Dr. Demarco. -Patient is obtunded at this time. No s/s of pain or discomfort. Is receiving PRN morphine and lorazepam. Review of Systems unable to obtain, patient is obtunded at this time Objective Vital Signs Date Time Temp Pulse Resp B/P (MAP) Pulse Ox O2 Delivery O2 Flow Rate FiO2 07/01/17 08:35 Non-Rebreather 15.0 07/01/17 00:10 Nasal Cannula 3.0 97 06/30/17 16:00 Nasal Cannula 3.0 Physical Exam General Appearance: no apparent distress, + cachetic, + thin ENT: hearing grossly normal Neck: supple, no JVD Respiratory/Chest: no respiratory distress, no accessory muscle use Cardiovascular: + tachycardia, + irregularly irregular, + normal peripheral pulses Abdomen: normal bowel sounds, soft Neurologic/Psychiatric: + pertinent finding (obtunded) Skin: + pertinent finding (no mottling noted) Assessment and Plan Problem list: Weakness Lethargy/obtundation Poor PO intake Failure to thrive/malnutrition Abnormal UA Left base infiltrate per CXR report- pneumonia Elevated creatinine- likely dehydration Elevated troponin Elevated BNP with hx diastolic CHF with EF 50-55% in May 2017 Afib with RVR (hx of Afib) Aspiration risk Goals of care (Z51.5) Palliative care recs: -Patient remains on IVF and IV abx. -Less responsive today- essentially obtunded. -Still unable to take PO medications due to aspiration risk. -Dr. Demarco spoke at length with patient's family. Son, Gustavo, still undecided on continuing abx and keeping patient in hospital vs. sending her back to [facility] on hospice. -Morphine is ordered 1-2mg IV Q1h PRN pain or SOB at this time. This could easily be transitioned to Roxanol if discharge is anticipated. -Has lorazepam 1mg IV Q4h PRN agitation/anxiety. Also scopolamine patch and atropine drops PRN secretions. Patient sounds less moist today. IVF were discontnued. -Still uncertain of discharge disposition. Thank you again for this consult. I will follow as needed. Palliative Performance Scale: 10 % Continued [facility] stay due to: multiple IV medications needed Discharge planning: uncertain
[2017-07-01] MEDS ORDERED: MoRPHine SULFATE 2.5 MG/0.125 ML UDP ONE ×3 (15:13→16:51)
[2017-07-01] MEDS ORDERED: NURSING VERBAL MED ORDER ONE ×3 (15:45→17:00)
[2017-07-01] MEDS ORDERED: MoRPHine SULFATE 5 MG/0.25 ML UDP SL PRN (16:00)
--- NOTE | 2017-07-01 16:43 | Progress Note ---
Internal Med Progress Note Date of Service: Jul 01, 2017. Provider Documentation: SUBJECTIVE: remains unresponsive requiring frequent IV Morphine for distress change to PO Roxanol ellie as on discharge pt will be on oral med pt was started on low dose 2.5 mg with minimum effect found to be comfortable as dose increased to 7.5 mg q2 hrs pt's Other Son Gustavo Miranda wants his Mother to stay in hospital to complete antibiotic course for the pneumonia Daughter in Law present at bedside -wants pt to return back to [facility] with hospice care Son Irina feels pt will prefer to have her final days in her own environment if pt need to stay in hospital to complete Antibiotic course -may in hospital will continue to have dialogue with family OBJECTIVE: Vital Signs-as noted below Exam: Exam: General-very frail , elderly female, cachetic , found to be lethargic on high flow 02 , grimacing occasionally due to pain /discomfort no visible respiratory distress noted Eyes-keeps eyes closed tightly ENT-very dry oral mucosa Lungs-diminished with crackles at base Heart-rapid , irregular Abdomen-Scaphoid , soft , Extremities-multiple ulcers on buttocks and heels and ankle , both of the feet are in Waffle boots Neuro-obtunded very lethargic , no visible response to voice , moving hand occasionally , grimacing in pain Lab data as noted below. ASSESSMENT & PLAN: ACUTE HYPOXEMIC RESPIRATORY FAILURE : due to left sided pneumonia /possible aspiration presented with hypoxia spo2 87 % on NRB , very lethargic, altered mental status -not responding to voice Xray shows Left basilar pneumonia started on empiric Abx with Zosyn no improvement of respiratory status after 24 hrs of Abx treatment SEPSIS DUE TO PNEUMONIA CONCERN FOR ASPIRATION : presented with Sepsis -lethargic, Afib rvr , hypoxia WBC 13 K C reactive protein 17.30 , Pro calcitonin elevated 0.63 , lactic acid 2.54 Cxray shows left basilar infiltrate , concern for aspiration -as has been obtunded for past few days was very lethargic with poor PO intake pt was on [facility] care ( [facility] ) at [facility] empiric Abx IV Zosyn ordered very poor prognosis with high mortality - given pt's Advanced age , multiple co -morbidities pt is ordered NPO for risk of Aspiration ACUTE RENAL FAILURE /BASELINE CKD STAGE 3 due to dehydration , poor PO intake ( pt had not been eating or drinking for the past ~5 days ) infection / sepsis Cr elevated to 1.56 -Baseline ~0.9 -Gentle IVF resuscitation LETHARGY/OBTUNDATION /METABOLIC ENCEPHALOPATHY : due to hypoxia , pneumonia , sepsis baseline dementia MULTIPLE PRESSURE SORES wound care consulted -appreciate input low air loss mattress ordered RAPID AFIB RVR : due to sepsis , dehydration not a candidate for anticoagulation ELEVATED TROPONIN /TYPE 2 NSTEMI : due to demand ischemia /hypoxia /rapid afib SEVERE PROTEIN CALORIE MALNUTRITION : BMI 18 failure to thrive very poor appetite , stopped eating /drinking ~5 days back unable to have any PO intake at present due to altered mental status / obtundation terminal end stage DNR /DNI DISPOSITION pt was at [facility] on Hospice Care prognosis remains very poor Hospice /Palliative care appropriate multiple discussion with family members is continued as there been conflict of ideas As one of the Son Gustavo living out of State not agreeable with pt's terminal diagnosis and Hospice /Comfort care Palliative care been following the Pt and family multiple communications been made with both son -to agree upon a common ground for appropriate care for this unfortunate elderly female Per discussion with son Clement and Daughter in Law Anna Miranda -wants pt to return back to [facility] on hospice care for her final days will continue to have discussion with family members to provide support Vital Signs: Date Time Temp Pulse Resp B/P (MAP) Pulse Ox O2 Delivery O2 Flow Rate FiO2 07/02/17 16:15 95 Nasal Cannula 3.0 07/02/17 14:23 37.7 127 18 95 Nasal Cannula 07/02/17 08:05 Nasal Cannula 3.0 07/02/17 07:53 37.7 127 18 136/73 (94) 95 3.0 07/01/17 23:00 Nasal Cannula 3.0 Lab Results:
[2017-07-01] MEDS: MoRPHine SULFATE 5 MG/0.25 ML UDP SL PRN (22:40)
[2017-07-02] MEDS: PIPERACILL/TAZOBAC IV 3.375 GM in DEXTROSE 5% 100ML 100 ML IV SCH ×2 (00:42→08:41)
[2017-07-02] MEDS: MoRPHine SULFATE 5 MG/0.25 ML UDP SL PRN ×4 (02:36→13:09)
[2017-07-02 07:53] VITALS: BP 136/73; PULSE 127; TEMP 37.7; O2SAT 95
[2017-07-02] MEDS: CHECK SCOPOLAMINE PATCH PLACEMENT SCH ×3 (08:41→15:51)
[2017-07-02 14:23] VITALS: BP 136/73; PULSE 127; TEMP 37.7; O2SAT 95
[2017-07-02] MEDS ORDERED: RXNS10 SL (14:41)
[2017-07-02] MEDS ORDERED: ATV/1 SL (14:41)
[2017-07-02] MEDS ORDERED: SCOP1.5D2 TD (14:41)
[2017-07-02] MEDS ORDERED: ATROPS5 SL (14:41)
--- NOTE | 2017-07-02 15:55 | Discharge Instructions ---
Discharge Instructions Date of Service Jul 03, 2017. Admission Reason for Admission: Failure To Thrive, Pna Discharge Discharge Diagnosis / Problem: RESPIRATORY FAILURE /SEPSIS -END STAGE STATUS / COMFORT CARE /HOSPICE / Discharge Goals Goal(s): Decrease discomfort Activity Recommendations Activity Limitations: as noted below (HOSPICE END OF LIFE CARE ) . Instructions / Follow-Up Instructions / Follow-Up CONTINUE PALLIATIVE /COMFORT CARE Current Hospital Diet Patient's current hospital diet: Discharge Diet Recommended Diet: N/A Pending Studies Studies pending at discharge: no Medical Emergencies . Who to Call and When: Medical Emergencies: If at any time you feel your situation is an emergency, please call 911 immediately. . Non-Emergent Contact Non-Emergency issues call your: Specialist (HOSPICE CARE ) . . "Provider Documentation" section prepared by Oly Demarco. . VTE Core Measure Inpt VTE Proph given/why not?: SCD's
--- NOTE | 2017-07-02 16:06 | Progress Note ---
Internal Med Progress Note Date of Service: Jul 02, 2017. Provider Documentation: SUBJECTIVE: remains unresponsive much comfortable on PO Roxanol spoke with Son Gustavo Miranda -updated pt's status Gustavo managed to review the Labs for her mother and understands that she is declining Son is agreeable to have pt return to [facility] with Hospice care for her final days IV Abx is discontinued ordered for Comfort care while in patient OBJECTIVE: Vital Signs-as noted below Exam: Exam: General-very frail , elderly female, cachetic , found to be lethargic on high flow 02 , grimacing occasionally due to pain /discomfort no visible respiratory distress noted Eyes-keeps eyes closed tightly ENT-very dry oral mucosa Lungs-diminished with crackles at base Heart-rapid , irregular Abdomen-Scaphoid , soft , Extremities-multiple ulcers on buttocks and heels and ankle , both of the feet are in Waffle boots Neuro-obtunded very lethargic , no visible response to voice , moving hand occasionally , grimacing in pain Lab data as noted below. ASSESSMENT & PLAN: ACUTE HYPOXEMIC RESPIRATORY FAILURE : due to left sided pneumonia /possible aspiration presented with hypoxia spo2 87 % on NRB , very lethargic, altered mental status -not responding to voice Xray shows Left basilar pneumonia started on empiric Abx with Zosyn no improvement of respiratory status after 24 hrs of Abx treatment SEPSIS DUE TO PNEUMONIA CONCERN FOR ASPIRATION : presented with Sepsis -lethargic, Afib rvr , hypoxia WBC 13 K C reactive protein 17.30 , Pro calcitonin elevated 0.63 , lactic acid 2.54 Cxray shows left basilar infiltrate , concern for aspiration -as has been obtunded for past few days was very lethargic with poor PO intake pt was on [facility] care ( [facility] at [facility] after Discussion with Family -Son Kam Miranda /Clement Miranda family willing for Comfort /palliative care pt will return to [facility] with Hospice LETHARGY/OBTUNDATION /METABOLIC ENCEPHALOPATHY : MULTIPLE PRESSURE SORES RAPID AFIB RVR : ELEVATED TROPONIN /TYPE 2 NSTEMI : due to demand ischemia /hypoxia SEVERE PROTEIN CALORIE MALNUTRITION : very poor prognosis Terminal End stage status DNR /DNI DISPOSITION pt was at [facility] on Hospice Care prognosis remains very poor Hospice /Palliative care appropriate Family agreeable for end of life care pt will return to [facility] on hospice care tomorrow appreciate Social service help Vital Signs: Date Time Temp Pulse Resp B/P (MAP) Pulse Ox O2 Delivery O2 Flow Rate FiO2 07/02/17 16:15 95 Nasal Cannula 3.0 07/02/17 14:23 37.7 127 18 95 Nasal Cannula 07/02/17 08:05 Nasal Cannula 3.0 07/02/17 07:53 37.7 127 18 136/73 (94) 95 3.0 07/01/17 23:00 Nasal Cannula 3.0
[2017-07-02 16:15] VITALS: O2SAT 95
[2017-07-03] MEDS: CHECK SCOPOLAMINE PATCH PLACEMENT SCH ×2 (00:24→07:44)
[2017-07-03] MEDS: MoRPHine SULFATE 5 MG/0.25 ML UDP SL PRN ×3 (06:04→12:36)
--- NOTE | 2017-07-03 11:24 | Discharge Summary ---
Discharge Summary Date of Service Jul 03, 2017. Discharge Summary Admission Date: Jun 29, 2017 at 14:39 Discharge Date: Jul 04, 2017 Discharge Disposition: Personal care ([facility] with Hospice ) Principal Diagnosis: RESPIRATORY FAILURE /SEPSIS -END STAGE STATUS /COMFORT CARE /HOSPICE / Procedures: CHEST XRAY : CHEST ONE VIEW PORTABLE CLINICAL HISTORY: Sepsis dyspnea COMPARISON STUDY: 06/02/2017 FINDINGS: Interval development of a parenchymal infiltrate medial aspect left base. Trace pleural fluid left lateral gastric angle. Lungs otherwise appear clear. Left suprahilar nodularity is stable. Mild stable cardiomegaly. Prior vertebroplasty is unchanged. IMPRESSION: Infiltrate left base. Consultations: PALLIATIVE CARE Medication Reconciliation New Medications: Lorazepam (Ativan) 1 Mg Tab 1 MG SL Q6H, #20 TAB Atropine Sulfate (Atropine Sulfate) 1 % Mayra 2 DROPS SL Q2H PRN for increased secretion , #1 BTL Morphine Sulfate (Morphine Sulfate) 10 Mg/0.5 Ml Soln 7.5 MG SL Q2H PRN for Pain, #10 ML Scopolamine (Transderm-Scop) 1 Mg/3 Days Dis 1.5 MG TD Q72H, #10 Discontinued Medications: Morphine Sulfate (Morphine Sulfate) 20 Mg/1 Ml Soln 0.25 ML PO Q8 Admission Information HPI (per Admitting provider): This is an 87yo F with a PMH of paroxysmal A fib, HTN, CHF, hypothyroidism and osteoporosis who presents with worsening failure to thrive and generalized weakness. Patient resides at [facility] in [place] and was recently admitted to [facility] from June 02- for fall and was found to have a UTI growing pseudomonas as well as rate-controlled A Fib. Was discharged back to [facility]. History was obtained entirely from daughter in law and son at bedside since patient is unable to speak. Since discharge in May, patient' s health status has declined significantly. While formerly ambulatory by walker , patient now is wheelchair bound. Has had decreased PO intake of food and intermittently will agree to drink a Boost. Patient's , whose health had also been declining, was placed on Hospice near the end of May. Local family (Hilario and Anna) decided it to be appropriate to also place the patient on hospice 2/2 malnutrition and failure to thrive. on Jun 21 and patient has continued to decline. Has required O2 since initiation of hospice and was hypoxic in the high 80s prior to arrival. All medications have been stopped. Last reported food intake is from 5 days ago. Morphine dose was recently increased for adequate pain control. In the ED, patient is requiring 12L non-rebreather for O2 saturation over 90%. Was found to have an infiltrate of the left lower base on CXR and A Fib with RVR in the 140s. ROS limited 2/2 patient's lethargy and inability to communicate. Palliative care was asked to speak with the patient and family while in the ED to address some questions as to goals of care. Patient's son, Gustavo, who resides in [place], is concerned about the appropriateness of the patient being on hospice and wanted her to be evaluated at the hospital. Believes that underlying depression and increased dose of morphine is contributing to her decline. Hilario and Anna feel that the patient has previously made it clear that she does not want to be hospitalized and that her health decline has been a steady process. Per living will, patient has stated that she does not want any life-prolonging measures once she has an end-stage condition. After a clarifying discussion, the family decided to give IVF and antibiotics for treatment of PNA but to not seek treatment for A Fib. Agreed to decrease morphine dose but still aim for adequate pain control. Palliative care will follow and will reassess status in 24-48 hours to see if improved. Physical Exam (per Admitting): General Appearance: + cachetic, + pertinent finding (Chronically ill appearing, weak, eyes closed. ) Head: normocephalic, atraumatic Eyes: normal inspection, PERRL (constricted pupils, responsive but minimally ), sclerae normal ENT: normal ENT inspection, hearing grossly normal, + pertinent finding (Non -rebreather mask on ) Neck: supple, trachea midline Respiratory/Chest: chest non-tender, no respiratory distress, no accessory muscle use, + decreased breath sounds Cardiovascular: no edema, + irregularly irregular Abdomen/GI: soft, no organomegaly Extremities/Musculoskelatal: normal inspection, no calf tenderness, no pedal edema Neurologic/Psych: + pertinent finding (Lethargic, able to follow some commands. Did not respond verbally. Unclear if patient is oriented or not. Generally weak.) Skin: normal color, + pertinent finding (Presence of purple ulcers on L heel (with eschar), ankle and L& R buttocks ) Hospital Course ACUTE HYPOXEMIC RESPIRATORY FAILURE : due to left sided pneumonia /possible aspiration presented with hypoxia spo2 87 % on NRB , very lethargic, altered mental status -not responding to voice Xray shows Left basilar pneumonia SEPSIS DUE TO PNEUMONIA CONCERN FOR ASPIRATION : presented with Sepsis -lethargic, Afib rvr , hypoxia WBC 13 K C reactive protein 17.30 , Pro calcitonin elevated 0.63 , lactic acid 2.54 Cxray shows left basilar infiltrate , concern for aspiration -as has been obtunded for past few days was very lethargic with poor PO intake pt was on Hospice care ( [facility] ) at [facility] after Discussion with Family -Son Kam Miranda /Clement Miranda family willing for Comfort /palliative care pt will return to [facility] with Hospice very poor prognosis Terminal End stage status DNR /DNI DISPOSITION return to [facility] on Hospice /comfort care appreciate Social service help Total time spent on discharge = 35 MINS This includes examination of the patient, discharge planning, medication reconciliation, and communication with other providers. Discharge Instructions Discharge Instructions Date of Service Jul 03, 2017. Admission Reason for Admission: Failure To Thrive, Pna Discharge Discharge Diagnosis / Problem: RESPIRATORY FAILURE /SEPSIS -END STAGE STATUS / COMFORT CARE /HOSPICE / Discharge Goals Goal(s): Decrease discomfort Activity Recommendations Activity Limitations: as noted below (HOSPICE END OF LIFE CARE ) . Instructions / Follow-Up Instructions / Follow-Up CONTINUE PALLIATIVE /COMFORT CARE Current Hospital Diet Patient's current hospital diet: Discharge Diet Recommended Diet: N/A Pending Studies Studies pending at discharge: no Medical Emergencies . Who to Call and When: Medical Emergencies: If at any time you feel your situation is an emergency, please call 911 immediately. . Non-Emergent Contact Non-Emergency issues call your: Specialist (HOSPICE CARE ) . . "Provider Documentation" section prepared by Oly Demarco. . VTE Core Measure Inpt VTE Proph given/why not?: SCD's
[2017-07-03] MEDS: SCOPOLAMINE 1.5 MG TDSY TD SCH (12:38)
== END 2017-07-03 13:57 | DRG 871 ==
LOC: EDBD 09:19 → C.EDB 09:22 → C.4E 14:39 → ENRESERV 15:03
PROVIDERS: ADMIT Internal Medicine; ATTEND Hospitalist
DX: A41.9 Sepsis, unspecified organism (principal); J18.9 Pneumonia, unspecified organism; J96.01 Acute respiratory failure with hypoxia; E43 Unspecified severe protein-calorie malnutrition; G93.41 Metabolic encephalopathy; I21.A1 Myocardial infarction type 2; N17.9 Acute kidney failure, unspecified; I50.32 Chronic diastolic (congestive) heart failure; I13.0 Hypertensive heart and chronic kidney disease with heart failure and stage 1 through stage 4 chronic kidney disease, or unspecified chronic kidney disease; Z68.1 Body mass index [BMI] 19.9 or less, adult; Z51.5 Encounter for palliative care; E03.9 Hypothyroidism, unspecified; I48.0 Paroxysmal atrial fibrillation; R62.7 Adult failure to thrive; N18.3 Chronic kidney disease, stage 3 (moderate); F03.90 Unspecified dementia, unspecified severity, without behavioral disturbance, psychotic disturbance, mood disturbance, and anxiety; L89.329 Pressure ulcer of left buttock, unspecified stage; L89.319 Pressure ulcer of right buttock, unspecified stage; L89.629 Pressure ulcer of left heel, unspecified stage; Z66 Do not resuscitate; Z99.81 Dependence on supplemental oxygen